=== PATIENT | male | born 1990 | race African-American/Black ===

== ENCOUNTER 2017-01-13 18:15 | Emergency (ER) | payer MEDICAID ==
--- NOTE | 2017-01-13 18:28 | CPEKG ---
Heart Rate: 91 RR Interval: 659 P-R Interval: 144 QRSD Interval: 78 QT Interval: 368 QTC Interval: 453 P Mason: 60 QRS Mason: 80 T Wave Mason: 46 EKG Severity - ABNORMAL ECG - EKG Impression: SINUS RHYTHM EKG Impression: PROBABLE LEFT VENTRICULAR HYPERTROPHY EKG Impression: ST ELEV, PROBABLE NORMAL EARLY REPOL PATTERN Electronically Signed By: Amauri Hoang 13-Jan-2017 23:26:51
--- NOTE | 2017-01-13 18:46 | EDPHY ---
H & P Time Seen by Provider: 01/13/17 18:16 HPI/ROS: Chief complaint. Near syncope HPI. 26-year-old male presents emergency department with feeling that he could pass out. He is here by EMS. He had dialysis this morning and then did need all day. He began to get sweaty and lightheaded. No chest discomfort or trouble breathing. He has had similar symptoms before. No problems heart or lungs. He does have hypertension and gets Friday dialysis. No fever. No unusual leg pain or swelling. His symptoms are better now. ROS Constitutional. no fever/chills, no weakness Eyes. no problems with vision ENT. no sore throat, no nasal drainage Cardiovascular. no chest pain Respiratory. no shortness of breath, no cough Abdominal. no abdominal pain, no nausea/vomiting, no diarrhea . no problems urinating MS. no calf pain/swelling, no neck/back pain, no joint pain Skin. Sweaty Lymph. no swollen glands Neuro. Near syncope Past Medical/Surgical History: Hypertension and renal failure Social History: Single, daily smoker, no alcohol Smoking Status: Light smoker Physical Exam: General Appearance: Alert well-developed male mild distress vital signs are stable Eyes: Pupils equal and round no pallor or injection. ENT, Mouth: Mucous membranes are moist. Respiratory: There are no retractions, lungs are clear to auscultation. Cardiovascular: Regular rate and rhythm. Gastrointestinal: Abdomen is soft and nontender, no masses, bowel sounds normal. Neurological: Awake and alert, sensory and motor exams grossly normal. Skin: Warm and dry, no rashes. Musculoskeletal: Neck is supple nontender. Extremities symmetrical, full range of motion. Psychiatric: Patient is oriented X 3, there is no agitation. Constitutional: Initial Vital Signs Temperature (C) 37.1 C 01/13/17 18:21 Heart Rate 90 01/13/17 18:21 Respiratory Rate 16 01/13/17 18:21 Blood Pressure 149/87 H 01/13/17 18:21 O2 Sat (%) 91 L 01/13/17 18:21 O2 Delivery Mode Room Air Allergies/Adverse Reactions: No Known Allergies Allergy (Unverified 01/13/17 18:20) Home Medications: Medication Instructions Recorded Olmesartan Medoxomil 01/13/17 Medical Decision Making - Diagnostics EKG Interpretation: EKG interpreted by me shows normal sinus rhythm normal interval and axis. QRS significant for LVH by voltage with early repolarization pattern. Otherwise no significant ST elevation or depression. No arrhythmia. The rate is 91 Procedures: IV, monitor ED Course/Re-evaluation: Patient is hungry. He is given juice and crackers re-evaluation at 7:30 p.m.. Patient is without symptoms. He is using virtual reality glasses in the bed and looking around. He is conversational. We do not have any other labs for comparison. He thinks his usual post dialysis creatinine is around 5 Re-evaluation 8:30 p.m.. Patient has no symptoms whatsoever. He feels well Differential Diagnosis: I considered electrolyte abnormalities including hyperkalemia. I considered hypoglycemia. I considered cardiac arrhythmia. - Data Points Laboratory Results: Laboratory Results 01/13/17 18:10 01/13/17 18:10 01/13/17 01/13/17 18:10 18:10 WBC 5.68 10^3/uL 10^3/uL (3.80-9.50) RBC 4.94 10^6/uL 10^6/uL (4.40-6.38) Hgb 13.8 g/dL g/dL (13.7-17.5) Hct 40.0 % % (40.0-51.0) MCV 81.0 fL L fL (81.5-99.8) MCH 27.9 pg pg (27.9-34.1) MCHC 34.5 g/dL g/dL (32.4-36.7) RDW 16.1 % H % (11.5-15.2) Plt Count 157 10^3/uL 10^3/uL (150-400) MPV 9.9 fL fL (8.7-11.7) Neut % (Auto) 75.2 % H % (39.3-74.2) Lymph % (Auto) 16.5 % % (15.0-45.0) [place] % (Auto) 6.3 % % (4.5-13.0) Eos % (Auto) 0.5 % L % (0.6-7.6) Baso % (Auto) 1.1 % % (0.3-1.7) Nucleat RBC Rel Count 0.0 % % (0.0-0.2) Absolute Neuts (auto) 4.27 10^3/uL 10^3/uL (1.70-6.50) Absolute Lymphs (auto) 0.94 10^3/uL L 10^3/uL (1.00-3.00) Absolute Monos (auto) 0.36 10^3/uL 10^3/uL (0.30-0.80) Absolute Eos (auto) 0.03 10^3/uL 10^3/uL (0.03-0.40) Absolute Basos (auto) 0.06 10^3/uL 10^3/uL (0.02-0.10) Absolute Nucleated RBC 0.00 10^3/uL 10^3/uL (0-0.01) Immature Gran % 0.4 % % (0.0-1.1) Immature Gran # 0.02 10^3/uL 10^3/uL (0.00-0.10) Sodium 138 mEq/L mEq/L (134-144) Potassium 4.9 mEq/L mEq/L (3.5-5.2) Chloride 103 mEq/L mEq/L (97-110) Carbon Dioxide 18 mEq/l L mEq/l (22-31) Anion Gap 17 mEq/L H mEq/L (8-16) BUN 27 mg/dL H mg/dL (7-23) Creatinine 5.2 mg/dL H mg/dL (0.7-1.3) Estimated GFR 14 Glucose 104 mg/dL H mg/dL (70-100) Calcium 8.1 mg/dL L mg/dL (8.5-10.4) Specimen Hemolysis 120 Departure - Departure Disposition: Home, Routine, Self-Care Clinical Impression: Near syncope Condition: Good Instructions: Near Syncope (ED) Additional Instructions: Regular eating and drinking. Return for worsening symptoms. Keep your next dialysis appointment on Friday. Referrals: Patient,NotPresent [Unknown] - As per Instructions Raul Noriega MD [Medical Doctor] - As per Instructions
[2017-01-13 19:12] LABS: % IMMATURE GRANULYOCYTES 0.4 % (0.0-1.1); ABSOLUTE IMMATURE GRANULOCYTES 0.02 10^3/uL (0.00-0.10); ADD DIFF? NO; ADD MORPH? NO; ADD SCAN? NO; ATYPICAL LYMPHOCYTE FLAG 10 (0-99); FRAGMENT RBC FLAG 20 (0-99); HEMOGLOBIN 13.8 g/dL (13.7-17.5); LEFT SHIFT FLG 0 (0-99); LIPEMIA HEMOLYSIS FLAG 90 (0-99); MEAN CELL HEMOGLOBIN 27.9 pg (27.9-34.1); MEAN CELL HEMOGLOBIN CONCENTR. 34.5 g/dL (32.4-36.7); MEAN PLATELET VOLUME 9.9 fL (8.7-11.7); PLATELET CLUMPS FLAG 0 (0-99); PLATELET COUNT 157 10^3/uL (150-400); RED BLOOD CELL COUNT 4.94 10^6/uL (4.40-6.38); RED CELL DISTRIBUTION WIDTH 16.1 % (11.5-15.2)
[2017-01-13 19:20] LABS: ANION GAP 17 mEq/L (8-16); CALCIUM 8.1 mg/dL (8.5-10.4); CARBON DIOXIDE 18 mEq/l (22-31); CHLORIDE 103 mEq/L (97-110); CREATININE 5.2 mg/dL (0.7-1.3); GLOMERULAR FILTRATION RATE 14; GLUCOSE 104 mg/dL (70-100); POTASSIUM 4.9 mEq/L (3.5-5.2); SODIUM 138 mEq/L (134-144); SPECIMEN HEMOLYSIS 120
[2017-01-13 20:08] VITALS: BP 163/93; PULSE 99; RESP 18; O2SAT 97
[2017-01-13 20:52] VITALS: TEMP 98.1
== END 2017-01-13 20:55 | disposition home or self-care (01) ==
DX: R55 Syncope and collapse (principal); I12.0 Hypertensive chronic kidney disease with stage 5 chronic kidney disease or end stage renal disease; N18.6 End stage renal disease; F17.200 Nicotine dependence, unspecified, uncomplicated; Z99.2 Dependence on renal dialysis

== ENCOUNTER 2017-01-28 11:05 | Observation (INO) | payer MEDICAID ==
[2017-01-28] MEDS ORDERED: BUPIVACAINE 0.25% 30 ML SDV ONE (15:50)
[2017-01-28] MEDS ORDERED: LIDOCAINE 1% 300 MG/30 ML SDV ONE (15:50)
[2017-01-28] MEDS ORDERED: PAPAVERINE HCL 60 MG/2 ML SDV ONE (15:51)
--- NOTE | 2017-01-30 12:23 | ASDISCHSUM ---
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
[2017-02-17] MEDS ORDERED: NS 1,000 ML IV ONE (14:11)
[2017-02-17] MEDS ORDERED: LIDOCAINE 1% 300 MG/30 ML SDV ONE (15:15)
[2017-02-17] MEDS ORDERED: BUPIVACAINE 0.25% 30 ML SDV ONE (15:15)
[2017-02-17] MEDS ORDERED: IOTHALAMATE MEG (CONRAY) 50 ML VIAL IV ONE (15:16)
[2017-02-17] MEDS ORDERED: PAPAVERINE HCL 60 MG/2 ML SDV ONE (15:16)
--- NOTE | 2017-02-17 15:46 | PDHPUP ---
History & Physical Update H&P update statement: This history and physical update is based on an assessment of the patient which was completed after admission or registration (within 24 hours), but prior to the surgery/procedure.
--- NOTE | 2017-02-17 15:46 | PDANEPAE ---
ANE History of Present Illness 26 year old male with recent development of ESRD (on dialysis via tunnelled catheter; last HD this a.m.) presents for creation of AV fistula. Patient also with HTN. ANE Past Medical History - Cardiovascular History Hx Hypertension: Yes Hx Arrhythmias: No Hx Chest Pain: No Hx Coronary Artery / Peripheral Vascular Disease: No Hx CHF / Valvular Disease: No Hx Palpitations: No - Pulmonary History Hx COPD: No Hx Asthma/Reactive Airway Disease: No Hx Recent Upper Respiratory Infection: No Hx Oxygen in Use at Home: No Hx Sleep Apnea: No - Neurologic History Hx Cerebrovascular Accident: No Hx Seizures: No Hx Dementia: No - Endocrine History Hx Diabetes: No Hypothyroid: No Hyperthyroid: No Obesity: no - Renal History Hx Renal Disorders: Yes Renal History Comment: ESRD on HD - Liver History Hx Hepatic Disorders: No - Neurological & Psychiatric Hx Hx Neurological and Psychiatric Disorders: No - GI History GERD: no Hx Gastrointestinal Disorders: No ANE Review of Systems Review of systems is: negative Review of Systems: - Exercise capacity Exercise capacity: >=4 METS ANE Patient History - Allergies Allergies/Adverse Reactions: No Known Allergies Allergy (Unverified 01/13/17 18:20) - Home Medications Home medications: home medication list seen and reviewed Home Medications: Olmesartan Medoxomil 01/13/17 [Last Taken Unknown] - NPO status NPO Status: no food or drink >8 hours NPO Since - Liquids (Date): 02/17/17 NPO Since - Liquids (Time): 02:00 NPO Since - Solids (Date): 02/16/17 NPO Since - Solids (Time): 23:00 - Anes Hx Anes Hx: no prior problems - Smoking Hx Smoking Status: Light smoker - Alcohol Use Alcohol Use: Sober - Family Anes Hx Family Anes Hx: neg - N/A ANE Labs/Vital Signs - Vital Signs Vital Signs: reviewed preoperatively; see RN documention for details Blood Pressure: 145/99 Heart Rate: 99 Respiratory Rate: 18 O2 Sat (%): 98 Height: 167.64 cm Weight: 61 kg ANE Physical Exam - Airway Neck exam: FROM Mallampati Score: Class 2 Mouth exam: normal dental/mouth exam - Pulmonary Pulmonary: no respiratory distress - Cardiovascular Cardiovascular: regular rate and rhythym - ASA Status ASA Status: IV ANE Anesthesia Plan Anesthesia Plan: general endotracheal anesthesia Total IV Anesthesia: No
[2017-02-17] MEDS ORDERED: MIDAZOLAM 2 MG/2 ML VIAL IVP ONE (15:47)
[2017-02-17] MEDS ORDERED: fentaNYL 100 MCG/2 ML INJ ONE ×3 (15:59→20:34)
[2017-02-17] MEDS ORDERED: PROPOFOL 200 MG/20 ML VIAL ONE (15:59)
[2017-02-17] MEDS ORDERED: PHENYLEPHRINE HCL 100 MCG/ML SYR ONE ×2 (16:48→16:54)
[2017-02-17] MEDS ORDERED: ONDANSETRON 4 MG/2 ML VIAL ONE (16:48)
[2017-02-17] MEDS ORDERED: DEXAMETHASONE 4 MG/ML VIAL ONE (16:48)
[2017-02-17] MEDS ORDERED: LABETALOL HCL 50 MG/10 ML SYR IVP PRN (17:09)
[2017-02-17] MEDS ORDERED: NALOXONE HCL 0.4 MG/ML INJ IVP PRN (17:09)
[2017-02-17] MEDS ORDERED: fentaNYL 100 MCG/2 ML INJ IVP PRN (17:09)
[2017-02-17] MEDS ORDERED: HYDROCODONE/APAP 5/325 TAB PO PRN ×2 (17:09→22:03)
[2017-02-17] MEDS ORDERED: LR 500 ML IV PRN (17:09)
[2017-02-17] MEDS ORDERED: ESMOLOL HCL 100 MG/10 ML VIAL IV ONE (20:43)
[2017-02-17] MEDS ORDERED: METOPROLOL TARTRATE 5 MG/5 ML INJ ONE (20:44)
--- NOTE | 2017-02-17 22:02 | POSTOPPROG ---
Post Op Note Date of Operation: 02/17/17 Surgeon: Asim Vo Rn Sane: Dr Ellen Ley Anesthesiologist: Mode Montes De Oca Anesthesia: LMA Pre-op Diagnosis: ESRD Post-op Diagnosis: same Procedure: R radio-cephalic fistula Findings: thrill Inf/Abcess present in the surg proc area at time of surgery?: No Depth: Deep Incisional (Fascial) EBL: 50-100
[2017-02-17] MEDS ORDERED: HYDROmorphONE/DILAUDID 1 MG/ML INJ IVP PRN (22:03)
[2017-02-17] MEDS ORDERED: ACETAMINOPHEN 325 MG TAB PO PRN (22:05)
--- NOTE | 2017-02-17 22:20 | POSTANESTH ---
Post Anesthetic Evaluation Cardiovascular Status: Normal, Stable, Similar to Pre-Op Cond Respiratory Status: Normal, Stable, Similar to Pre-op Cond. Level of Consciousness/Mental Status: Can Participate in Eval, Alert and Oriented Pain Control: Adequate, Prn Tx Ordered Nausea/Vomiting Control: Adequate, Prn Tx Ordered Complications Possibly Related to Anesthesia: None Noted
--- NOTE | 2017-02-17 23:26 | GOP ---
[f rep st] OPERATIVE REPORT DATE OF OPERATION: 02/17/17 SURGEON: Asim Vo MD CONSTRUCTION PRODUCER: Raul Ley MD PREOPERATIVE DIAGNOSIS: 26-year-old gentleman who presents with end-stage renal disease. POSTOPERATIVE DIAGNOSIS: 26-year-old gentleman who presents with end-stage renal disease. PROCEDURE PERFORMED: Primary radiocephalic fistula creation, left forearm. FINDINGS: Unable to use anatomic snuffbox artery; therefore, went to radial artery side-to-end anastomosis with the radial cephalic vein. DESCRIPTION OF PROCEDURE: Patient brought into the operating room. After induction of LMA in supine position, his arm was prepped with chlorhexidine and draped sterilely. Time-out procedure was performed according to institutional standards. Local anesthetic infused in skin and subcutaneous tissues of his forearm. An incision was made after mapping this area out with ultrasonography. The radiocephalic fistula was initially started from the anatomic snuff box, but the artery did not have enough force to keep the fistula open. The vein was clean and measured approximately 2 cm past the optimal site and an incision was made and widened with Bonner scissors and the vein was flushed. It had good flush and appeared to be widely patent. Anastomosis was then created in the anatomic snuffbox by getting proximal and distal control with Bulldogs and using 6-0 suture to create the anastomosis. Three separate anastomoses were done, but all failed to have any good outflow and therefore a radiocephalic fistula was decided upon by taking the radial artery and doing a side-to-end. A fluoroscopic evaluation of the vein was done prior to doing this anastomosis. Although there was a mild area of stricturing , a 3 mm coronary dilator was used to pass through the vessel without a problem. The anastomosis was created with 6-0 Prolene in a running fashion. The vessel had good signal and this went up the arm appropriately. The incision was then closed using 4-0 Monocryl. Dermabond was applied. The patient was awakened, LMA removed, taken to recovery room in stable condition. Needle, instrument, and sponge counts correct x2. /[id number]/MODL MTDD
[2017-02-18 02:01] VITALS: O2SAT 97
[2017-02-18 07:56] VITALS: BP 155/84; PULSE 107; RESP 14; TEMP 98.1
== END 2017-02-18 09:59 | disposition home or self-care (01) ==
LOC: F2W 16:45 → UNDOADMOB 16:45 → F2W 02-17 13:47 → F3E 02-17 16:00
PROVIDERS: ADMIT Surgery; ATTEND Surgery
PROC: 031C0ZF Bypass Left Radial Artery to Lower Arm Vein, Open Approach (ICD-10-PCS; principal; 2017-02-17 16:15)
DX: N18.6 End stage renal disease (principal); Z99.2 Dependence on renal dialysis; N04.1 Nephrotic syndrome with focal and segmental glomerular lesions; I15.1 Hypertension secondary to other renal disorders
CPT/HCPCS: 36821; G0378; J1100; J1170; J1644; J2250; J2370; J2405; J2440; J2704; J3010; Q9961

== ENCOUNTER 2017-02-26 14:48 | Inpatient (IN) | payer MEDICAID ==
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
[2017-02-26 15:33] LABS: % IMMATURE GRANULYOCYTES 0.2 % (0.0-1.1); ABSOLUTE IMMATURE GRANULOCYTES 0.01 10^3/uL (0.00-0.10); ADD DIFF? NO; ADD MORPH? NO; ADD SCAN? NO; ATYPICAL LYMPHOCYTE FLAG 20 (0-99); FRAGMENT RBC FLAG 20 (0-99); HEMATOCRIT 35.8 % (40.0-51.0); HEMOGLOBIN 13.1 g/dL (13.7-17.5); LEFT SHIFT FLG 0 (0-99); LIPEMIA HEMOLYSIS FLAG 90 (0-99); MEAN CELL HEMOGLOBIN 28.1 pg (27.9-34.1); MEAN CELL HEMOGLOBIN CONCENTR. 36.6 g/dL (32.4-36.7); MEAN CELL VOLUME 76.8 fL (81.5-99.8); PLATELET CLUMPS FLAG 10 (0-99); PLATELET COUNT 141 10^3/uL (150-400); RED BLOOD CELL COUNT 4.66 10^6/uL (4.40-6.38); RED CELL DISTRIBUTION WIDTH 14.3 % (11.5-15.2)
[2017-02-26 15:37] LABS: ANION GAP 21 mEq/L (8-16); CALCIUM 9.4 mg/dL (8.5-10.4); CARBON DIOXIDE 18 mEq/l (22-31); CHLORIDE 98 mEq/L (97-110); GLOMERULAR FILTRATION RATE 8; GLUCOSE 87 mg/dL (70-100); POTASSIUM 4.3 mEq/L (3.5-5.2); SODIUM 137 mEq/L (134-144)
[2017-02-26 15:44] LABS: CREATININE 8.4 mg/dL (0.7-1.3)
[2017-02-26] MEDS ORDERED: IOPAMIDOL (ISOVUE 370) 100 ML BTL IV ONE (18:10)
[2017-02-26] MEDS ORDERED: LABETALOL HCL 5 MG/ML 20 ML MDV ONE (19:53)
[2017-02-26] MEDS: LABETALOL HCL 5 MG/ML 20 ML MDV IVP ONE ×2 (19:56→20:20)
[2017-02-26] MEDS ORDERED: LABETALOL HCL 50 MG/10 ML SYR IVP ONE ×3 (20:18→20:59)
[2017-02-26] MEDS ORDERED: LABETALOL HCL 5 MG/ML 20 ML MDV IVP PRN (20:21)
[2017-02-26] MEDS ORDERED: hydrALAZINE 20 MG/ML VIAL IVP PRN (20:21)
[2017-02-26] MEDS ORDERED: LABETALOL HCL 5 MG/ML 20 ML MDV IVP ONE ×3 (20:30→21:15)
[2017-02-26] MEDS ORDERED: ACETAMINOPHEN 325 MG TAB PO PRN (21:48)
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
[2017-02-27] MEDS: LABETALOL HCL 200 MG TAB PO SCH ×3 (01:58→20:18)
[2017-02-27] MEDS: MINOXIDIL 2.5 MG TAB PO SCH ×3 (01:59→20:18)
[2017-02-27 06:28] LABS: % IMMATURE GRANULYOCYTES 0.1 % (0.0-1.1); ABSOLUTE IMMATURE GRANULOCYTES 0.01 10^3/uL (0.00-0.10); ADD DIFF? NO; ADD MORPH? NO; ADD SCAN? NO; ATYPICAL LYMPHOCYTE FLAG 20 (0-99); FRAGMENT RBC FLAG 20 (0-99); HEMATOCRIT 33.9 % (40.0-51.0); LEFT SHIFT FLG 0 (0-99); LIPEMIA HEMOLYSIS FLAG 90 (0-99); MEAN CELL HEMOGLOBIN 27.2 pg (27.9-34.1); MEAN CELL HEMOGLOBIN CONCENTR. 35.4 g/dL (32.4-36.7); MEAN CELL VOLUME 76.9 fL (81.5-99.8); MEAN PLATELET VOLUME 10.4 fL (8.7-11.7); PLATELET CLUMPS FLAG 10 (0-99); PLATELET COUNT 130 10^3/uL (150-400); RED BLOOD CELL COUNT 4.41 10^6/uL (4.40-6.38); RED CELL DISTRIBUTION WIDTH 14.3 % (11.5-15.2)
[2017-02-27 06:45] LABS: ANION GAP 16 mEq/L (8-16); CALCIUM 8.9 mg/dL (8.5-10.4); CARBON DIOXIDE 22 mEq/l (22-31); CHLORIDE 100 mEq/L (97-110); GLOMERULAR FILTRATION RATE 8; GLUCOSE 80 mg/dL (70-100); POTASSIUM 4.4 mEq/L (3.5-5.2); SODIUM 138 mEq/L (134-144)
[2017-02-27 06:54] LABS: CREATININE 8.5 mg/dL (0.7-1.3)
--- NOTE | 2017-02-27 08:18 | CPEKG ---
Heart Rate: 92 RR Interval: 652 P-R Interval: 164 QRSD Interval: 82 QT Interval: 380 QTC Interval: 471 P [place]: 44 QRS [place]: 65 T Wave [place]: 49 EKG Severity - ABNORMAL ECG - EKG Impression: SINUS RHYTHM EKG Impression: ST ELEVATION (Less prominent compared to January 13, 2017) SUGGESTS EKG Impression: PERICARDITIS OR EARLY REPOLARIZATION EKG Impression: BORDERLINE PROLONGED QT INTERVAL Electronically Signed By: Amauri Branch 27-Feb-2017 09:40:13
[2017-02-27] MEDS: ONDANSETRON 4 MG/2 ML VIAL IVP PRN ×2 (08:59→20:28)
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
--- NOTE | 2017-02-27 14:11 | PDMN ---
Medical Necessity Medical necessity: Change to IP, [facility] IP only procedure (dialysis)
--- NOTE | 2017-02-27 14:43 | HOSPPROG ---
Hospitalist Progress Note Assessment/Plan: DIAGNOSES: -ACUTE INJURY TO NEW DIALYSIS AV FISTULA LEFT ARM WITH BLEEDING, BLEEDING RESOLVED -this is a minor injury was seen by Dr. Dan in the emergency room, not felt to need any intervention other than dressing -Dr. 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: Sinus rhythm EXAM: Seen on dialysis today No issues with pressure sore flows on dialysis machine Alert, oriented, relaxed Skin warm dry good color Respirations easy lungs clear Heart regular Abdomen soft nondistended nontender Some edema but mild His at fistula on left wrist has a bandage with a small amount of dried blood but otherwise looks good with barely palpable thrill 1 week out from surgery which seems appropriate Objective: Vital Signs Temp Pulse Resp BP Pulse Ox 36.8 C 94 16 178/115 H 99 02/27/17 08:00 02/27/17 08:00 02/27/17 08:00 02/27/17 08:00 02/27/17 08:00 ICD10 Worksheet Patient Problems: Problems Problem Status Onset ESRD needing dialysis Acute Hypertension Acute Renal failure Acute
--- NOTE | 2017-02-28 08:42 | SOAPPROG ---
FLOYD Progress Note Assessment/Plan: Assessment: The patient is a 26 y/o M with FSGS now ESRD on HD MWF with recent AVF placement with traumatic fall and pseudoaneurysm of fistula, healing. Seen on HD today, and may be discharged from a renal standpoint with surgical follow-up. ESRD -HD today, UF 3kg -return to [facility] MWF 3rd shift HTN/vol -continue to challenge dry weight -BP still elevated on hydralazine, minoxidil, and labetalol -consider scheduling hydralazine, increasing labetalol to 800mg BID, or starting losartan L liu AVF with traumatic injury -bandaged, pain control -pseudoaneurysm, wont be able to use for 6 weeks -follow-up per surgery -R TDC in place BMD -phos not checked -reviewed foods that should be monitored -labs as outpatient AGMA -improved with HD 02/28/17 08:39 02/28/17 08:44 Subjective: Patient seen on dialysis. Feeling ok and arm pain minimal. Asking about dietary restrictions. Objective: Vital Signs Temp Pulse Resp BP Pulse Ox 37.0 C 98 16 144/87 H 95 02/28/17 04:00 02/28/17 04:00 02/28/17 04:00 02/28/17 04:00 02/28/17 04:00 02/27/17 02/28/17 03/01/17 05:59 05:59 05:59 Intake Total 660 Balance 660 Physical Exam - Physical Exam General Appearance: WD/WN, alert, no apparent distress EENT: PERRL/EOMI, pharynx normal Neck: non-tender, full range of motion, supple Respiratory: chest non-tender, lungs clear Cardiac/Chest: normal peripheral pulses, regular rate, rhythm Abdomen: normal bowel sounds, non-tender, soft Skin: normal color, warm/dry Extremities: normal range of motion, non-tender, other (R TDC in place, L liu bandaged, +thrill) ICD10 Worksheet Patient Problems: Problems Problem Status Onset ESRD needing dialysis Acute Hypertension Acute Renal failure Acute
[2017-02-28] MEDS: LABETALOL HCL 200 MG TAB PO SCH ×2 (10:29→11:40)
[2017-02-28] MEDS: MINOXIDIL 2.5 MG TAB PO SCH ×2 (10:30→11:42)
[2017-02-28 11:32] VITALS: BP 152/93; RESP 15; TEMP 97.9; O2SAT 97
[2017-02-28 11:42] VITALS: PULSE 87
[2017-02-28] MEDS: ONDANSETRON 4 MG/2 ML VIAL IVP PRN (11:46)
[2017-02-28] MEDS ORDERED: HEPARIN 50,000 UNIT/10 ML VIAL ONE (13:14)
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
--- NOTE | 2017-02-28 15:06 | ASMTCMCOM ---
CM Note CM Note Notes: Pt to DC today. reserved correction bed for pt and also gave pt bus pass to get to the correction. Date Signed: 02/28/2017 03:05 PM Electronically Signed By:Gaby Hart LCSW
--- NOTE | 2017-02-28 17:18 | GDS ---
[f rep st] DISCHARGE SUMMARY DISCHARGE DIAGNOSES: 1. End-stage renal disease due to focal segmental glomerular sclerosis. 2. Acute injury to his new left dialysis fistula. HOSPITAL COURSE: A 26-year-old man with end-stage renal disease due to FSGS, presents with an injury to his left AV fistula. This had been placed by Dr. Vo recently. It was bleeding and pulsatil e blood. It was bandaged and appears okay. CT scan did show a small pseudoaneurysm. He underwent 2 rounds of dialysis. His course has been complicated by very [id number] hypertension, thou gh his blood pressure when I am seeing him on discharge is 154/92. Dr. Vo will see him prior to discharge. He will set up an appointment for the patient to follow up in his office next week. He will also assess the fistula. I have made no changes to his medications. He follows up at [facility] for dialysis. He will need to ge t back on his Friday, Friday, Friday schedule. BILLING: I spent more than 30 minutes on the day of discharge, coordinating care. /[id number]/MODL
== END 2017-02-28 15:00 | disposition home or self-care (01) | DRG 314 ==
LOC: EDUNIT# → F2N 02-27 00:18 → F1N 02-27 11:01 → OBSVTOIN 02-27 13:34
PROVIDERS: ADMIT Internal Medicine; ATTEND Student in an Organized Health Care Education/Training Program
PROC: 5A1D70Z Performance of Urinary Filtration, Intermittent, Less than 6 Hours Per Day (ICD-10-PCS; principal; 2017-02-27)
DX: T82.838A Hemorrhage due to vascular prosthetic devices, implants and grafts, initial encounter (principal); T82.898A Other specified complication of vascular prosthetic devices, implants and grafts, initial encounter; I72.1 Aneurysm of artery of upper extremity; N18.6 End stage renal disease; E87.2 Acidosis; Z99.2 Dependence on renal dialysis; N04.1 Nephrotic syndrome with focal and segmental glomerular lesions; I15.1 Hypertension secondary to other renal disorders; Z59.0 Homelessness
CPT/HCPCS: 96365; J0360; J0690; J1644; J2405; J3490; Q9967

== ENCOUNTER 2017-03-06 04:38 | Observation (INO) | payer MEDICAID ==
--- NOTE | 2017-03-06 04:44 | EDPHY ---
H & P HPI/ROS: HPI CHIEF COMPLAINT: I need dialysis, hypertension HISTORY OF PRESENT ILLNESS: This patient 26-year-old male significant past medical history for end-stage renal disease. On hemodialysis Friday. He last received dialysis on Friday. He has not taken his blood pressure medication in 3-4 days. He tells me takes minoxidil as well as labetalol. Unsure of the doses. He [facility] as he is [facility]. States that he noticed his blood pressure is high. No chest pain no shortness of breath. Completed 4 hours of dialysis on Friday. Denies fever. Right chest dialysis access. Patient does make urine. Past Medical History: End-stage renal disease, hypertension, FSGS. Followed at [facility]. 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 Past Surgical History: Left arm AV fistula that is new. Social History: Denies daily use of drugs. Does smoke tobacco. Denies alcohol. Family History: Noncontributory ROS REVIEW OF SYSTEMS: A comprehensive 10 point review of systems is otherwise negative aside from elements mentioned in the history of present illness. Exam Constitutional appears well nontoxic triage nursing summary reviewed, vital signs reviewed, awake/alert. Vital signs noted to be overtly hypertensive tachycardic. Eyes normal conjunctivae and sclera, EOMI, PERRLA. HENT normal inspection, atraumatic, moist mucus membranes, no epistaxis, neck supple/ no meningismus, no raccoon eyes. Respiratory clear to auscultation bilaterally, normal breath sounds, no respiratory distress, no wheezing. Cardiovascular right chest shows dialysis access. Catheter. Clean. rate normal, regular rhythm, no murmur, no edema, distal pulses normal. Gastrointestinal soft, non-tender, no rebound, no guarding, normal bowel sounds, no distension, no pulsatile mass. Genitourinary no CVA tenderness. Musculoskeletal no midline vertebral tenderness, full range of motion, no calf swelling, no tenderness of extremities, no meningismus, good pulses, neurovascularly intact. Skin pink, warm, & dry, no rash, skin atraumatic. Neurologic awake, alert and oriented x 3, AAOx3, moves all 4 extremities equally, motor intact, sensory intact, CN II-XII intact, normal cerebellar, normal vision, normal speech. Psychiatric normal mood/affect. Heme/Lymph/Immune no lymphadenopathy. Differential Diagnosis: Includes but is not limited to in a particular order volume overload, acute need for dialysis, electrolyte disturbance, hyperkalemia , hypertensive urgency, hypertensive emergency Medical Decision Making: Plan for this patient EKG to rule out peaked T-waves, basic blood work. And patient will need to be set up for dialysis. Re-evaluation: EKG interpretation by me on record in [employer] system. Impression and time of EKG 4:49 a.m., sinus rhythm rate of 103. No PE T-wave abnormality. LVH present. Early [place] pulp pattern. Otherwise unremarkable EKG. 0526AM: Spoke with Dr. Noriega with Nephrology. Will plan on dialysis this morning add on case. He has no further recommendations at this time. Patient's chemistry reviewed potassium is normal. No peaked T-waves on his EKG. Patient will need urgent dialysis due to hypertension. I have ordered him 20 mg IV labetalol and minoxidil. He is hemodynamically stable is blood pressure slightly improved but still high. He denies any chest pain or shortness of breath. Denies significant headache. Denies focal weakness numbness or tingling. Plan for admission the hospitalist service. Blood pressure improved to 198 systolic. After 20 mg IV labetalol. Additionally I have ordered him another dose of labetalol. Plan for dialysis. Spoke with the hospitalist service. Admission the hospital service Dr. Burgos Source: Patient, EMS - Medical/Surgical History Hx Asthma: No Hx Chronic Respiratory Disease: No Hx Diabetes: No Hx Cardiac Disease: No Hx Renal Disease: Yes Hx Cirrhosis: No Hx Alcoholism: No Hx HIV/AIDS: No Hx Splenectomy or Spleen Trauma: No Other PMH: HTN, ESRD, eye surgery, dialysis - Social History Smoking Status: Light smoker Constitutional: Initial Vital Signs Temperature (C) 36.9 C 03/06/17 04:48 Heart Rate 105 H 03/06/17 04:48 Respiratory Rate 16 03/06/17 04:48 Blood Pressure 228/168 H 03/06/17 04:48 O2 Sat (%) 96 03/06/17 04:48 O2 Delivery Mode Room Air Allergies/Adverse Reactions: No Known Allergies Allergy (Unverified 03/06/17 04:48) Home Medications: Medication Instructions Recorded Herbals/Supplements -Info Only 1 ea PO DAILY 02/18/17 Labetalol HCl [Trandate 200 mg (*)] 600 mg PO BID 02/18/17 Minoxidil [Minoxidil 2.5 mg (*)] 5 mg PO BID 02/18/17 Medical Decision Making - Data Points Laboratory Results: Laboratory Results 03/06/17 05:00 03/06/17 05:00 03/06/17 03/06/17 05:00 05:00 WBC 6.62 10^3/uL 10^3/uL (3.80-9.50) RBC 4.02 10^6/uL L 10^6/uL (4.40-6.38) Hgb 11.3 g/dL L g/dL (13.7-17.5) Hct 30.9 % L % (40.0-51.0) MCV 76.9 fL L fL (81.5-99.8) MCH 28.1 pg pg (27.9-34.1) MCHC 36.6 g/dL g/dL (32.4-36.7) RDW 14.5 % % (11.5-15.2) Plt Count 135 10^3/uL L 10^3/uL (150-400) MPV 10.6 fL fL (8.7-11.7) Neut % (Auto) 64.2 % % (39.3-74.2) Lymph % (Auto) 25.5 % % (15.0-45.0) [place] % (Auto) 7.3 % % (4.5-13.0) Eos % (Auto) 1.8 % % (0.6-7.6) Baso % (Auto) 0.9 % % (0.3-1.7) Nucleat RBC Rel Count 0.0 % % (0.0-0.2) Absolute Neuts (auto) 4.25 10^3/uL 10^3/uL (1.70-6.50) Absolute Lymphs (auto) 1.69 10^3/uL 10^3/uL (1.00-3.00) Absolute Monos (auto) 0.48 10^3/uL 10^3/uL (0.30-0.80) Absolute Eos (auto) 0.12 10^3/uL 10^3/uL (0.03-0.40) Absolute Basos (auto) 0.06 10^3/uL 10^3/uL (0.02-0.10) Absolute Nucleated RBC 0.00 10^3/uL 10^3/uL (0-0.01) Immature Gran % 0.3 % % (0.0-1.1) Immature Gran # 0.02 10^3/uL 10^3/uL (0.00-0.10) Sodium 139 mEq/L mEq/L (134-144) Potassium 3.9 mEq/L mEq/L (3.5-5.2) Chloride 101 mEq/L mEq/L (97-110) Carbon Dioxide 21 mEq/l L mEq/l (22-31) Anion Gap 17 mEq/L H mEq/L (8-16) BUN 57 mg/dL H mg/dL (7-23) Creatinine 7.8 mg/dL H* mg/dL (0.7-1.3) Estimated GFR 9 Glucose 74 mg/dL mg/dL (70-100) Calcium 8.9 mg/dL mg/dL (8.5-10.4) Medications Given: Discontinued Medications Labetalol HCl (Trandate Injection) 20 mg IVP EDNOW ONE Stop: 03/06/17 04:47 Last Admin: 03/06/17 05:05 Dose: 20 mg Minoxidil (Minoxidil) 2.5 mg PO EDNOW ONE Stop: 03/06/17 05:13 Last Admin: 03/06/17 05:25 Dose: 2.5 mg Departure - Departure Disposition: [facility] Acute Clinical Impression: ESRD needing dialysis Hypertension Qualifiers: Hypertension type: essential hypertension Qualified Code(s): I10 - Essential ( primary) hypertension Condition: Good Referrals: NONE *PRIMARY CARE P,. [Primary Care Provider] - As per Instructions
[2017-03-06] MEDS ORDERED: LABETALOL HCL 5 MG/ML 20 ML MDV IVP ONE (04:46)
[2017-03-06 05:11] LABS: PLATELET COUNT 135 10^3/uL (150-400)
[2017-03-06] MEDS ORDERED: MINOXIDIL 2.5 MG TAB PO ONE (05:12)
[2017-03-06] MEDS ORDERED: LABETALOL HCL 50 MG/10 ML SYR IVP ONE (05:29)
[2017-03-06] MEDS ORDERED: LORazepam 0.5 MG TAB PO PRN (06:03)
[2017-03-06] MEDS ORDERED: ACETAMINOPHEN 325 MG TAB PO PRN (06:03)
[2017-03-06] MEDS ORDERED: HYDROmorphONE/DILAUDID 1 MG/ML INJ IVP PRN (06:03)
[2017-03-06] MEDS ORDERED: ONDANSETRON 4 MG/2 ML VIAL IVP PRN (06:03)
[2017-03-06] MEDS ORDERED: LABETALOL HCL 50 MG/10 ML SYR IVP PRN (06:05)
--- NOTE | 2017-03-06 06:16 | CPEKG ---
Heart Rate: 103 RR Interval: 583 P-R Interval: 176 QRSD Interval: 86 QT Interval: 348 QTC Interval: 456 P [place]: 46 QRS [place]: 52 T Wave [place]: 44 EKG Severity - OTHERWISE NORMAL ECG - EKG Impression: SINUS TACHYCARDIA EKG Impression: ST ELEV, PROBABLE NORMAL EARLY REPOL PATTERN Electronically Signed By: Salvador Perez 06-Mar-2017 06:35:17
--- NOTE | 2017-03-06 06:16 | CPEKG ---
Heart Rate: 103 RR Interval: 583 P-R Interval: 176 QRSD Interval: 86 QT Interval: 348 QTC Interval: 456 P [place]: 46 QRS [place]: 52 T Wave [place]: 44 EKG Severity - OTHERWISE NORMAL ECG - EKG Impression: SINUS TACHYCARDIA EKG Impression: ST ELEV, PROBABLE NORMAL EARLY REPOL PATTERN Electronically Signed By: Salvador Perez 06-Mar-2017 06:35:17
--- NOTE | 2017-03-06 07:23 | PDGENHP ---
History and Physical - Chief Complaint high blood pressure, headache - History of Present Illness Source - patient provides history and keeps eyes closed during interview. requires prompting to participate in interview. Case discussed with ED provider and EMR reviewed. 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 Patient normally on MWF HD scheduled but reports he missed his Friday dialysis appointment. Patient with history of missing appointments intermittently as well as noncompliance with his antihypertensive medications which he also has not recently taken. Patient reports he developed Headache without changes in vision. no chest pain/palpitations or shortness of breath. Patient denies any LE edema. no fevers/chills/cough and was otherwise feeling well until evening prior to arrival except for headache. History Information - Allergies/Home Medication List Allergies/Adverse Reactions: No Known Allergies Allergy (Unverified 03/06/17 04:48) Home Medications: Herbals/Supplements -Info Only 1 ea PO DAILY 02/18/17 [Last Taken Unknown] Labetalol HCl [Trandate 200 mg (*)] 600 mg PO BID 02/18/17 [Last Taken 02/25/17 21:00] Minoxidil [Minoxidil 2.5 mg (*)] 5 mg PO BID 02/18/17 [Last Taken 02/25/17 21:00 ] I have personally reviewed and updated: family history, medical history, social history, surgical history - Past Medical History Additional medical history: FSGS. ESRD on HD MWF. benign essential HTN - Surgical History Additional surgical history: left arm AVF. - Family History Positive for: hypertension. Negative for: diabetes type II - Social History Smoking Status: Light smoker Tobacco Use: Cigarettes Alcohol Use: None Drug Use: Marijuana Review of Systems Review of Systems: ROS: 10pt was reviewed & negative except for what was stated in HPI & below Constitutional: Reports: no symptoms. Denies: fever, recent illness, weakness EENMT: Reports: no symptoms. Denies: blurred vision, nose congestion, sore throat Cardiac: Denies: no symptoms, chest pain, edema, lightheadedness, palpitations Respiratory: Denies: cough, shortness of breath Gastrointestinal: Denies: vomitting, nausea Genitourinary: Denies: dysuria, hematuria Muscolosketal: Denies: joint pain, muscle pain Skin: Reports: no symptoms Neurological: Reports: headache. Denies: numbness, tingling Physical Exam Physical Exam: Selected Entries 03/06/17 04:48 Heart Rate 105 H Respiratory 16 Rate O2 Sat (%) 96 Temperature (C) 36.9 C Blood Pressure 228/168 H Mean Arterial 188 H Pressure (MAP) O2 Delivery Room Air Mode Temperature Oral Source Temp Pulse Resp BP Pulse Ox 36.2 C 102 H 14 181/119 H 95 03/06/17 07:14 03/06/17 07:14 03/06/17 07:14 03/06/17 07:14 03/06/17 07:14 Constitutional: no apparent distress, not in pain, No uncomfortable Eyes: PERRL, EOMI, scleral injection, No icteric sclera Ears, Nose, Mouth, Throat: moist mucous membranes Cardiovascular: regular rate and rhythym, no murmur, rub, or gallop, tachycardia , No irregularly irregular, No edema Respiratory: no respiratory distress, no rales or rhonchi, clear to auscultation Gastrointestinal: normoactive bowel sounds, soft, non-tender abdomen, no palpable masses Genitourinary: no bladder fullness, No andres in urethra Skin: warm, normal color, No rash Musculoskeletal: full muscle strength, no muscle tenderness, No generalized weakness Neurologic: AAOx3, other (grossly nonfocal. moves all extremities while laying in bed. ), No weakness Psychiatric: not anxious, flat affect, No anxious, No depressed, No poor insight , No poor judgement, No poor memory Lab Data & Imaging Review 03/06/17 05:00 03/06/17 05:00 WBC 6.62 10^3/uL (3.80-9.50) 03/06/17 05:00 RBC 4.02 10^6/uL (4.40-6.38) L 03/06/17 05:00 Hgb 11.3 g/dL (13.7-17.5) L 03/06/17 05:00 Hct 30.9 % (40.0-51.0) L 03/06/17 05:00 MCV 76.9 fL (81.5-99.8) L 03/06/17 05:00 MCH 28.1 pg (27.9-34.1) 03/06/17 05:00 MCHC 36.6 g/dL (32.4-36.7) 03/06/17 05:00 RDW 14.5 % (11.5-15.2) 03/06/17 05:00 Plt Count 135 10^3/uL (150-400) L 03/06/17 05:00 MPV 10.6 fL (8.7-11.7) 03/06/17 05:00 Neut % (Auto) 64.2 % (39.3-74.2) 03/06/17 05:00 Lymph % (Auto) 25.5 % (15.0-45.0) 03/06/17 05:00 Henderson % (Auto) 7.3 % (4.5-13.0) 03/06/17 05:00 Eos % (Auto) 1.8 % (0.6-7.6) 03/06/17 05:00 Baso % (Auto) 0.9 % (0.3-1.7) 03/06/17 05:00 Nucleat RBC Rel Count 0.0 % (0.0-0.2) 03/06/17 05:00 Absolute Neuts (auto) 4.25 10^3/uL (1.70-6.50) 03/06/17 05:00 Absolute Lymphs (auto) 1.69 10^3/uL (1.00-3.00) 03/06/17 05:00 Absolute Monos (auto) 0.48 10^3/uL (0.30-0.80) 03/06/17 05:00 Absolute Eos (auto) 0.12 10^3/uL (0.03-0.40) 03/06/17 05:00 Absolute Basos (auto) 0.06 10^3/uL (0.02-0.10) 03/06/17 05:00 Absolute Nucleated RBC 0.00 10^3/uL (0-0.01) 03/06/17 05:00 Immature Gran % 0.3 % (0.0-1.1) 03/06/17 05:00 Immature Gran # 0.02 10^3/uL (0.00-0.10) 03/06/17 05:00 Sodium 139 mEq/L (134-144) 03/06/17 05:00 Potassium 3.9 mEq/L (3.5-5.2) 03/06/17 05:00 Chloride 101 mEq/L (97-110) 03/06/17 05:00 Carbon Dioxide 21 mEq/l (22-31) L 03/06/17 05:00 Anion Gap 17 mEq/L (8-16) H 03/06/17 05:00 BUN 57 mg/dL (7-23) H 03/06/17 05:00 Creatinine 7.8 mg/dL (0.7-1.3) H* 03/06/17 05:00 Estimated GFR 9 03/06/17 05:00 Glucose 74 mg/dL (70-100) 03/06/17 05:00 Calcium 8.9 mg/dL (8.5-10.4) 03/06/17 05:00 Visualized and Interpreted EKG results: Yes EKG Interpretation: Positive for: LVH EKG additional interpertation: NSR 100s with LVH and repol changes. Assessment & Plan Assessment: 26 yo M presents with Headache and HTN: #ESRD needing dialysis (Acute) #accelerated Hypertension (Acute) - Patient initial BP in ED was 249/179. will plan to decreased by 25% for first several hours at this time. s/p labetalol and minoxidil in ED. labetalol available prn. patient also concerned regarding drop in BP and development of lightheadedness. #Headache - resolved with improved BPs. #FSGS - HD as above. #anemia - likely chronic disease. no evidence of active bleeding. continue to monitor. #thrombocytopenia - mildly decreased. etiology unclear. holding anticoagulation. #LVH - related to poorly controlled BPs. plan as above. FEN - saline lock. electrolytes acceptable at this time. renal diet ordered. PPX - SCds. holding anticoagulation before HD COR - FULL. Dispo - admit to observation on PCU for close BP monitoring.
[2017-03-06] MEDS ORDERED: LABETALOL HCL 5 MG/ML 20 ML MDV IVP PRN (08:30)
[2017-03-06] MEDS ORDERED: MINOXIDIL 2.5 MG TAB PO SCH (09:00)
[2017-03-06 09:10] LABS: HEPATITIS B SURFACE ANTIGEN NEGATIVE (NEGATIVE)
[2017-03-06 09:28] LABS: HEPATITIS B CORE AB TOTAL NEGATIVE (NEGATIVE)
--- NOTE | 2017-03-06 09:42 | SOAPPROG ---
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 under the care of Dr. Robles Will follow while inpatient 03/06/17 09:39 Objective: Vital Signs Temp Pulse Resp BP Pulse Ox 36.2 C 102 H 14 181/119 H 95 03/06/17 07:14 03/06/17 07:14 03/06/17 07:14 03/06/17 07:14 03/06/17 07:14 03/05/17 03/06/17 03/07/17 05:59 05:59 05:59 Output Total 200 Balance -200 ICD10 Worksheet Patient Problems: Problems Problem Status Onset ESRD needing dialysis Acute Hypertension Acute Renal failure Acute
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
--- NOTE | 2017-03-06 11:25 | SOAPPROG ---
SOAP Progress Note Assessment/Plan: Assessment:Plan: ESRD Stable on Hd Tolerating current UF Plan for dialysis tomorrow to keep on regular schedule AVF examined Good bruit Small area of dehiscence of distal wound that is clean This should be left to heal by secondary intention He is homeless [facility] is not a reliable housing solution, as it is first- come, first-served. He would not meet criteria for [employer] or [employer] from what I know of those services. I am not sure of what other resources are available in [place], [facility]. I have had some success with people that need help through the [facility] in [place] [phone] I gave him the number Discussed with Dr. Wilson 03/06/17 11:26 Objective: Vital Signs Temp Pulse Resp BP Pulse Ox 36.2 C 102 H 14 181/119 H 95 03/06/17 07:14 03/06/17 07:14 03/06/17 07:14 03/06/17 07:14 03/06/17 07:14 03/05/17 03/06/17 03/07/17 05:59 05:59 05:59 Output Total 200 Balance -200 ICD10 Worksheet Patient Problems: Problems Problem Status Onset ESRD needing dialysis Acute Hypertension Acute Renal failure Acute
--- NOTE | 2017-03-06 11:25 | SOAPPROG ---
SOAP Progress Note Assessment/Plan: Assessment:Plan: ESRD Stable on Hd Tolerating current UF Plan for dialysis tomorrow to keep on regular schedule AVF examined Good bruit Small area of dehiscence of distal wound that is clean This should be left to heal by secondary intention He is homeless [facility] is not a reliable housing solution, as it is first- come, first-served. He would not meet criteria for [employer] or [employer] from what I know of those services. I am not sure of what other resources are available in [place], [facility]. I have had some success with people that need help through the [facility] in [place] [phone] I gave him the number Discussed with Dr. Wilson 03/06/17 11:26 Objective: Vital Signs Temp Pulse Resp BP Pulse Ox 36.2 C 102 H 14 181/119 H 95 03/06/17 07:14 03/06/17 07:14 03/06/17 07:14 03/06/17 07:14 03/06/17 07:14 03/05/17 03/06/17 03/07/17 05:59 05:59 05:59 Output Total 200 Balance -200 ICD10 Worksheet Patient Problems: Problems Problem Status Onset ESRD needing dialysis Acute Hypertension Acute Renal failure Acute
--- NOTE | 2017-03-06 11:25 | SOAPPROG ---
SOAP Progress Note Assessment/Plan: Assessment:Plan: ESRD Stable on Hd Tolerating current UF Plan for dialysis tomorrow to keep on regular schedule AVF examined Good bruit Small area of dehiscence of distal wound that is clean This should be left to heal by secondary intention He is homeless [facility] is not a reliable housing solution, as it is first- come, first-served. He would not meet criteria for [employer] or [employer] [employer] from what I know of those services. I am not sure of what other resources are available in [place], [facility]. I have had some success with people that need help through the [facility] in [place] [phone] I gave him the number Discussed with Dr. Wilson 03/06/17 11:26 Objective: Vital Signs Temp Pulse Resp BP Pulse Ox 36.2 C 102 H 14 181/119 H 95 03/06/17 07:14 03/06/17 07:14 03/06/17 07:14 03/06/17 07:14 03/06/17 07:14 03/05/17 03/06/17 03/07/17 05:59 05:59 05:59 Output Total 200 Balance -200 ICD10 Worksheet Patient Problems: Problems Problem Status Onset ESRD needing dialysis Acute Hypertension Acute Renal failure Acute
--- NOTE | 2017-03-06 11:49 | HOSPPROG ---
Hospitalist Progress Note Assessment/Plan: #. ESRD/HD - ESRD secondary to FSGS. Plan for HD tomorrow. #. Accelerated HTN - resume home labetalolol and minoxidil. #. BYNUM - PRN treatment. Consider CT head if worsening. #. Anemia - secondary to chronic disease. With low MCV, will check iron studies. #. Thrombocytopenia - Mild, uncertain etiology. Follow for now. #. Bowel/Bladder - Bowel regimen if constipation develops. #. DVT Prophylaxis - low risk as ambulatory. #. Dispo - will need to work with social work to see if we can assist with placement as he is homeless which complicates the regularity of HD. Subjective: No acute events overnight. Objective: Vital Signs Temp Pulse Resp BP Pulse Ox 36.2 C 102 H 14 181/119 H 95 03/06/17 07:14 03/06/17 07:14 03/06/17 07:14 03/06/17 07:14 03/06/17 07:14 03/05/17 03/06/17 03/07/17 05:59 05:59 05:59 Output Total 200 Balance -200 - Physical Exam Constitutional: no apparent distress, appears nourished, not in pain Cardiovascular: regular rate and rhythym, no murmur, rub, or gallop Respiratory: no respiratory distress, no rales or rhonchi, clear to auscultation Gastrointestinal: normoactive bowel sounds, soft, non-tender abdomen, no palpable masses Neurologic: AAOx3 Psychiatric: interacting appropriately ICD10 Worksheet Patient Problems: Problems Problem Status Onset ESRD needing dialysis Acute Hypertension Acute Renal failure Acute
[2017-03-06] MEDS: MINOXIDIL 2.5 MG TAB PO SCH ×2 (13:45→21:24)
[2017-03-06] MEDS: LABETALOL HCL 200 MG TAB PO SCH ×2 (13:48→21:25)
--- NOTE | 2017-03-06 17:14 | ASMTCMCOM ---
CM Note CM Note Notes: 03/06/2017 Case Management Note Met w/pt to discuss dialysis plan. Pt recieves dialysis through [facility] in [place], reports missing appointment earlier this week. Discussed using [place] transport to appointments. Pt is to call and arrange apple picking supervisor location for [place] transport while at [facility] each week. [facility] is closed today. Case Management to call tomorrow and confirm dialysis plan. Pt reports starting SSDI application, but is unsure of status. Pt moved to [place] from [facility] for a summer job, reports plans to "go somewhere warm" for the winter months. Case Management d/c poc: to alf resuming dialysis at [facility] on [place] when medically stable. Case management to follow. Date Signed: 03/06/2017 05:13 PM Electronically Signed By:Marzena Do RN
--- NOTE | 2017-03-06 17:14 | ASMTCMCOM ---
CM Note CM Note Notes: 03/06/2017 Case Management Note Met w/pt to discuss dialysis plan. [facility] [place], reports missing appointment earlier this week. Discussed using [facility] [place] transport to appointments. Pt is to call and arrange rock picker location for [place] transport while at [facility] each week. [facility] is closed today. Case Management to call tomorrow and confirm dialysis plan. Pt reports starting SSDI application, but is unsure of status. Pt moved to [place] from [facility] for a summer job, reports plans to "go somewhere warm" for the winter months. Case Management d/c poc: to halfway resuming dialysis at [facility] [place] when medically stable. Case management to follow. Date Signed: 03/06/2017 05:13 PM Electronically Signed By:Marzena Do RN
--- NOTE | 2017-03-06 17:14 | ASMTCMCOM ---
CM Note CM Note Notes: 03/06/2017 Case Management Note Met w/pt to discuss dialysis plan. Pt rec[facility] dialysis through [facility] in [place], reports missing appointment earlier this week. Discussed using [place] transport to appointments. Pt is to call and arrange clam picker location for [place] transport while at [facility] each week. [facility] is closed today. Case Management to call tomorrow and confirm dialysis plan. Pt reports starting SSDI application, but is unsure of status. Pt moved to [place] from [facility] for a summer job, reports plans to "go somewhere warm" for the winter months. Case Management d/c poc: to jail resuming dialysis at [facility] [place] when medically stable. Case management to follow. Date Signed: 03/06/2017 05:13 PM Electronically Signed By:Marzena Do RN
[2017-03-06] MEDS ORDERED: HEPARIN 50,000 UNIT/10 ML VIAL ONE (18:40)
--- NOTE | 2017-03-07 08:26 | SOAPPROG ---
FLOYD Progress Note Assessment/Plan: Assessment:Plan: ESRD-for Hd again today -Stable on Hd yesterday -Tolerating current UF -Plan for dialysis Friday as outpatient -keep on regular schedule AVF-stable -Good bruit -Small area of dehiscence of distal wound that is clean -allow to heal by secondary intention Dispo-pending -he seems to be well aware of resources in the area 03/07/17 08:24 Subjective: just waking up Objective: Vital Signs Temp Pulse Resp BP Pulse Ox 36.9 C 111 H 16 138/86 H 98 03/07/17 04:00 03/07/17 04:00 03/07/17 04:00 03/07/17 04:00 03/07/17 04:00 Laboratory Results 03/07/17 04:30 03/06/17 03/07/17 03/08/17 05:59 05:59 05:59 Intake Total 800 Output Total 400 Balance 400 Physical Exam - Physical Exam General Appearance: no apparent distress EENT: normal ENT inspection Neck: normal inspection Respiratory: decreased breath sounds Cardiac/Chest: regular rate, rhythm, No systolic murmur Abdomen: normal bowel sounds, non-tender Skin: normal color, warm/dry Extremities: No swelling ICD10 Worksheet Patient Problems: Problems Problem Status Onset ESRD needing dialysis Acute Hypertension Acute Renal failure Acute
[2017-03-07 09:21] VITALS: RESP 17; TEMP 98.1; O2SAT 99
[2017-03-07] MEDS: LABETALOL HCL 200 MG TAB PO SCH (12:56)
[2017-03-07] MEDS: MINOXIDIL 2.5 MG TAB PO SCH (12:56)
[2017-03-07 12:57] VITALS: BP 163/92
--- NOTE | 2017-03-07 15:13 | ASMTCMCOM ---
CM Note CM Note Notes: Met with patient to review dc plan of care. Spoke with Liliana at [facility] to confirm patient does have standing chair appointment M/W/F at 12 30 pm. I am providing him with 2 bus passes as he has to chimney supervisor [place]. I have reserved the long term bed for him for tonight. He knows to follow up with [facility] for dialysis Friday. The [phone] number for [employer] transportation is not working correctly. CM available if further needs arise. Date Signed: 03/07/2017 03:12 PM Electronically Signed By:Nakia Apodaca RN
--- NOTE | 2017-03-07 15:13 | ASMTCMCOM ---
CM Note CM Note Notes: Met with patient to review dc plan of care. Spoke with Liliana at [facility] to confirm patient does have standing chair appointment M/W/F at 12 30 pm. I am providing him with 2 bus passes as he has to [place] pick[place]. I have reserved the [facility] bed for him for tonight. He knows to [facility] Friday. The [phone] number for [employer] transportation is not working correctly. CM available if further needs arise. Date Signed: 03/07/2017 03:12 PM Electronically Signed By:Nakia Apodaca RN
--- NOTE | 2017-03-07 15:13 | ASMTCMCOM ---
CM Note CM Note Notes: Met with patient to review dc plan of care. Spoke with Liliana at [facility] to confirm patient does have standing chair appointment M/W/F at 12 30 pm. I am providing him with 2 bus passes as he has to parts picker [place]. I have reserved the care home bed for him for tonight. [facility]. The [phone] number for [employer] transportation is not working correctly. CM available if further needs arise. Date Signed: 03/07/2017 03:12 PM Electronically Signed By:Nakia Apodaca RN
--- NOTE | 2017-03-07 15:47 | ASMTCMCOM ---
CM Note CM Note Notes: Call to [employer] as [place] number is currently not functioning.Per [facility] ([place] ) Transportation from [place] [facility] arranged for 03/10 and 03/12, at 11:30 am to [facility] in [place], Addresses provided and confirmed.This is a courtesy to extend 2 rides as for further transportation he would need a Medical Certification form filled out and sent to [facility]. I reviewed this information with his nurse to go over upon discharge. Patient again has his bus vouchers and a night reserved at the intermediate. He again states his intention to move out of the area fearing the approaching winter weather. CM availble if further needs arise. Date Signed: 03/07/2017 03:47 PM Electronically Signed By:Nakia Apodaca RN
--- NOTE | 2017-03-07 15:47 | ASMTCMCOM ---
CM Note CM Note Notes: Call to [facility] as [place] number is currently not functioning.Per [facility] ([place] ) Transportation from [place] [facility] arranged for 03/10 and 03/12, at 11:30 am to [facility] in [place], Addresses provided and confirmed.This is a courtesy to extend 2 rides as for further transportation he would need a Medical Certification form filled out and sent to [facility]. I reviewed this information with his nurse to go over upon discharge. Patient again [facility] his bus vouchers [facility] He again states his intention to move out of the area fearing the approaching winter weather. CM availble if further needs arise. Date Signed: 03/07/2017 03:47 PM Electronically Signed By:Nakia Apodaca RN
--- NOTE | 2017-03-07 15:47 | ASMTCMCOM ---
CM Note CM Note Notes: Call to [facility] as [place] number is currently not functioning.Per [facility] ([place] ) Transportation from [place] [facility] arranged for 03/10 and 03/12, at 11:30 am to [facility] in [place], Addresses provided and confirmed.This is a courtesy to extend 2 rides as for further transportation he would need a Medical Certification form filled out and sent to [facility]. I reviewed this information with his nurse to go over upon discharge. Patient again has his bus vouchers and a night reserved at the custodial. He again states his intention to move out of the area fearing the approaching winter weather. CM availble if further needs arise. Date Signed: 03/07/2017 03:47 PM Electronically Signed By:Nakia Apodaca RN
--- NOTE | 2017-03-07 15:49 | GDS ---
[f rep st] DISCHARGE SUMMARY PRIMARY CARE PROVIDER: None currently established. IN-HOSPITAL CONSULTANTS: Dr. Echols, Nephrology. DISCHARGE DIAGNOSES: 1. Accelerated hypertension. 2. End-stage renal disease, on hemodialysis. 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 He was noted to have significantly elevated b lood pressures measuring at 249/179. He had apparently missed hemodialysis, which he apparently has some history of as he is homeless, and coordinating his medical care has been difficult. He does hav e a hemodialysis spot secured at [facility] here in [place], which he is on a Friday, Friday, Friday s . We resumed his outpatient antihypertensive regimen, which includes labetalol and minoxidil. In doing this, he had reasonably good control here in the hospital, reaching as low as 129/67. His headache symptoms seem to improve during his hospitalization as well. He was hemodialyzed today and yesterday and has scheduled hemodialysis for next Friday. Case Management did work with him in [facility] to community resources. From talking with him, it sounds like he is unsure where he is going to go as the next step as he does not seem to have very good social support here in [place], but does men tion possibly [place] or [place], where he does have family. I encouraged him to find the best pl scar for his support as ultimately he may do better in the long run if he is able to establish with a regular real estate financial analyst and possibly be considered for renal transplantation. HOSPITAL COURSE: 1. End-stage renal disease, on hemodialysis. This is secondary to FSGS. He had hemodialysis today and yesterday, and his electrolytes appear to be well controlled. 2. Accelerated hypertension, good control with resumption of labetalol and minoxidil. I have given him a prescription for each to last 1 month. 3. Headaches, improved, with lowering of his blood pressure. 4. Anemia. This is secondary to chronic disease. EXAM: VITAL SIGNS: On day of discharge, temperature 36.7. Blood pressure ranged from 129/67 to 163 /92, heart rate 102, respirations 17, saturating 99% on room air. GENERAL: Patient resting comforta wilian in bed. No acute distress. HEART: Regular. No murmurs appreciated. He has a bruit in the lef t upper extremity. CHEST: Dialysis catheter in right subclavian. LUNGS: Clear to auscultation wit h normal respiratory effort. ABDOMEN: Soft, nontender. : No Barrett catheter in place. EXTREMITIE S: No significant pitting edema. LABORATORY DATA: Notable studies: White blood cell count 6, hemoglobin 11, platelets 135. Sodium 1 39, potassium 4.3, chloride 101, bicarb 27, glucose of 107, ferritin 205, serum iron 64. Albumin is 3.6. DISCHARGE MEDICATIONS: 1. Labetalol 600 mg twice a day. 2. Minoxidil 5 mg twice a day. DISCHARGE INSTRUCTIONS: The patient will have outpatient hemod[facility] this coming Friday [facility] here in [place]. I have encouraged him to think about where his best location for better soc ial support would be (he mentions [place] or [place]), as I think he will do better if he can have regular followup with a real estate financial analyst in a more stable home environment. /[id number]/MODL
--- NOTE | 2017-03-07 15:49 | GDS ---
[f rep st] DISCHARGE SUMMARY PRIMARY CARE PROVIDER: None currently established. IN-HOSPITAL CONSULTANTS: Dr. Echols, Nephrology. DISCHARGE DIAGNOSES: 1. Accelerated hypertension. 2. End-stage renal disease, on hemodialysis. 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 He was noted to have significantly elevated b lood pressures measuring at 249/179. He had apparently missed hemodialysis, which he apparently has some history of as he is homeless, and coordinating his medical care has been difficult. He does hav e a hemodialysis spot secured at [facility] here in [place], which he is on a Friday, Friday, Friday s . We resumed his outpatient antihypertensive regimen, which includes labetalol and minoxidil. In doing this, he had reasonably good control here in the hospital, reaching as low as 129/67. His headache symptoms seem to improve during his hospitalization as well. He was hemodialyzed today and yesterday and has scheduled hemodialysis for next Friday. Case Management did work with him in [facility] d to community resources. From talking with him, it sounds like he is unsure where he is going to go as the next step as he does not seem to have very good social support here in [place], but does men tion possibly [place] or [place], where he does have family. I encouraged him to find the best pl scar for his support as ultimately he may do better in the long run if he is able to establish with a regular prototype fabricator and possibly be considered for renal transplantation. HOSPITAL COURSE: 1. End-stage renal disease, on hemodialysis. This is secondary to FSGS. He had hemodialysis today and yesterday, and his electrolytes appear to be well controlled. 2. Accelerated hypertension, good control with resumption of labetalol and minoxidil. I have given him a prescription for each to last 1 month. 3. Headaches, improved, with lowering of his blood pressure. 4. Anemia. This is secondary to chronic disease. EXAM: VITAL SIGNS: On day of discharge, temperature 36.7. Blood pressure ranged from 129/67 to 163 /92, heart rate 102, respirations 17, saturating 99% on room air. GENERAL: Patient resting comforta wilian in bed. No acute distress. HEART: Regular. No murmurs appreciated. He has a bruit in the lef t upper extremity. CHEST: Dialysis catheter in right subclavian. LUNGS: Clear to auscultation wit h normal respiratory effort. ABDOMEN: Soft, nontender. : No Barrett catheter in place. EXTREMITIE S: No significant pitting edema. LABORATORY DATA: Notable studies: White blood cell count 6, hemoglobin 11, platelets 135. Sodium 1 39, potassium 4.3, chloride 101, bicarb 27, glucose of 107, ferritin 205, serum iron 64. Albumin is 3.6. DISCHARGE MEDICATIONS: 1. Labetalol 600 mg twice a day. 2. Minoxidil 5 mg twice a day. DISCHARGE INSTRUCTIONS: The patient will have outpatient hemodialysis this coming Friday at [facility] here in [place]. I have encouraged him to think about where his best location for better soc ial support would be (he mentions [place] or [place]), as I think he will do better if he can have regular followup with a prototype fabricator in a more stable home environment. /[id number]/MODL
--- NOTE | 2017-03-07 15:49 | GDS ---
[f rep st] DISCHARGE SUMMARY PRIMARY CARE PROVIDER: None currently established. IN-HOSPITAL CONSULTANTS: Dr. Echols, Nephrology. DISCHARGE DIAGNOSES: 1. Accelerated hypertension. 2. End-stage renal disease, on hemodialysis. 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 He was noted to have significantly elevated b lood pressures measuring at 249/179. He had apparently missed hemodialysis, which he apparently has some history of as he is homeless, and coordinating his medical care has been difficult. He does hav e a hemodialysis spot secured at [facility] here in [place], which he is on a Friday, Friday, Friday s . We resumed his outpatient antihypertensive regimen, which includes labetalol and minoxidil. In doing this, he had reasonably good control here in the hospital, reaching as low as 129/67. His headache symptoms seem to improve during his hospitalization as well. He was hemodialyzed today and yesterday and has scheduled hemodialysis for next Friday. Case Management did work with him in [facility] d to community resources. From talking with him, it sounds like he is unsure where he is going to go as the next step as he does not seem to have very good social support here in [place], but does men tion possibly [place] or [place], where he does have family. I encouraged him to find the best pl scar for his support as ultimately he may do better in the long run if he is able to establish with a regular fuel cell designer and possibly be considered for renal transplantation. HOSPITAL COURSE: 1. End-stage renal disease, on hemodialysis. This is secondary to FSGS. He had hemodialysis today and yesterday, and his electrolytes appear to be well controlled. 2. Accelerated hypertension, good control with resumption of labetalol and minoxidil. I have given him a prescription for each to last 1 month. 3. Headaches, improved, with lowering of his blood pressure. 4. Anemia. This is secondary to chronic disease. EXAM: VITAL SIGNS: On day of discharge, temperature 36.7. Blood pressure ranged from 129/67 to 163 /92, heart rate 102, respirations 17, saturating 99% on room air. GENERAL: Patient resting comforta wilian in bed. No acute distress. HEART: Regular. No murmurs appreciated. He has a bruit in the lef t upper extremity. CHEST: Dialysis catheter in right subclavian. LUNGS: Clear to auscultation wit h normal respiratory effort. ABDOMEN: Soft, nontender. : No Barrett catheter in place. EXTREMITIE S: No significant pitting edema. LABORATORY DATA: Notable studies: White blood cell count 6, hemoglobin 11, platelets 135. Sodium 1 39, potassium 4.3, chloride 101, bicarb 27, glucose of 107, ferritin 205, serum iron 64. Albumin is 3.6. DISCHARGE MEDICATIONS: 1. Labetalol 600 mg twice a day. 2. Minoxidil 5 mg twice a day. DISCHARGE INSTRUCTIONS: The patient will have outpatient hemod[facility] this coming Friday at [facility] here in [place]. I have encouraged him to think about where his best location for better soc ial support would be (he mentions [place] or [place]), as I think he will do better if he can have regular followup with a fuel cell designer in a more stable home environment. /[id number]/MODL
[2017-03-07] MEDS ORDERED: HEPARIN 50,000 UNIT/10 ML VIAL ONE ×2 (16:07)
--- NOTE | 2017-03-07 16:09 | ASMTCMCOM ---
CM Note CM Note Notes: Medical certification form found at [email or web address], filled out and faxed successfully to [phone]. Date Signed: 03/07/2017 04:08 PM Electronically Signed By:Nakia Apodaca RN
--- NOTE | 2017-03-07 16:09 | ASMTCMCOM ---
CM Note CM Note Notes: Medical certification form found at [email or web address], filled out and faxed successfully to [phone]. Date Signed: 03/07/2017 04:08 PM Electronically Signed By:Nakia Apoadca RN
--- NOTE | 2017-03-07 16:09 | ASMTCMCOM ---
CM Note CM Note Notes: Medical certification form found at [email or web address], filled out and faxed successfully to [phone]. Date Signed: 03/07/2017 04:08 PM Electronically Signed By:Nakia Apodaca RN
[2017-03-07 16:54] VITALS: PULSE 85
== END 2017-03-07 17:23 | disposition home or self-care (01) ==
LOC: EDUNIT# → INTOOBSV 05:29 → F2W 06:15
PROVIDERS: ADMIT Family Medicine; ATTEND Internal Medicine
PROC: 5A1D70Z Performance of Urinary Filtration, Intermittent, Less than 6 Hours Per Day (ICD-10-PCS; principal; 2017-03-06)
PROC: 5A1D70Z Performance of Urinary Filtration, Intermittent, Less than 6 Hours Per Day (ICD-10-PCS; 2017-03-07)
DX: I12.0 Hypertensive chronic kidney disease with stage 5 chronic kidney disease or end stage renal disease (principal); N18.6 End stage renal disease; Z99.2 Dependence on renal dialysis; Z59.0 Homelessness; D63.1 Anemia in chronic kidney disease; D69.6 Thrombocytopenia, unspecified; Z91.15 Patient's noncompliance with renal dialysis; Z91.19 Patient's noncompliance with other medical treatment and regimen
CPT/HCPCS: 93005; 96374; 99285; G0378; 86704-90; J1644; J2405; J3490

== ENCOUNTER 2017-04-17 00:28 | Emergency (ER) | payer MEDICAID ==
[2017-04-17 00:33] VITALS: RESP 16; TEMP 98.4; O2SAT 97
[2017-04-17 00:52] LABS: % IMMATURE GRANULYOCYTES 0.9 % (0.0-1.1); ABSOLUTE IMMATURE GRANULOCYTES 0.05 10^3/uL (0.00-0.10); ADD DIFF? NO; ADD MORPH? NO; ADD SCAN? NO; ATYPICAL LYMPHOCYTE FLAG 10 (0-99); FRAGMENT RBC FLAG 20 (0-99); HEMATOCRIT 34.8 % (40.0-51.0); HEMOGLOBIN 12.4 g/dL (13.7-17.5); LEFT SHIFT FLG 0 (0-99); LIPEMIA HEMOLYSIS FLAG 90 (0-99); MEAN CELL HEMOGLOBIN 28.7 pg (27.9-34.1); MEAN CELL HEMOGLOBIN CONCENTR. 35.6 g/dL (32.4-36.7); MEAN CELL VOLUME 80.6 fL (81.5-99.8); MEAN PLATELET VOLUME 10.1 fL (8.7-11.7); PLATELET CLUMPS FLAG 0 (0-99); PLATELET COUNT 147 10^3/uL (150-400); RED BLOOD CELL COUNT 4.32 10^6/uL (4.40-6.38)
[2017-04-17 01:04] LABS: ANION GAP 16 mEq/L (8-16); CALCIUM 9.4 mg/dL (8.5-10.4); CARBON DIOXIDE 25 mEq/l (22-31); CHLORIDE 102 mEq/L (97-110); GLOMERULAR FILTRATION RATE 8; GLUCOSE 96 mg/dL (70-100); POTASSIUM 4.8 mEq/L (3.5-5.2); SODIUM 143 mEq/L (134-144)
[2017-04-17 01:08] LABS: CREATININE 8.1 mg/dL (0.7-1.3)
--- NOTE | 2017-04-17 01:18 | EDPHY ---
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 Patient states he missed his dialysis yesterday morning when he overslept. His last dialysis was 3 days ago. He also states he took his normal medications yesterday morning but did not take him yesterday evening. ( Is currently 0115 in the morning). Patient denies headache. No nausea or vomiting. No fevers or chills. He has been otherwise in his usual state health. He has been otherwise compliant with his medications and his dialysis. Does not have any abdominal pain. He is presenting today for evaluation whether he needs dialysis at this time. ROS: 10 point Review of Systems is negative except as noted in the HPI. PMH: End-stage renal disease, FSGS, hypertension Social History: Denies smoking, denies alcohol Family History: Chronic renal disease Physical Exam: Gen: Awake, Alert, No Distress HEENT: Nose: no rhinorrhea Eyes: PERRLA, EOMI Mouth: Moist mucosa Neck: Supple, no JVD Chest: nontender, lungs clear to auscultation, he has dialysis catheter in his right chest, no erythema or discharge Heart: S1, S2 normal, no murmur Abd: Soft, non-tender, no guarding Back: no CVA tenderness, no midline tenderness Ext: no edema, non-tender Skin: no rash Neuro: CN II-XII intact, Sensation grossly intact, Strength 5/5 in bilateral upper and lower extremities - Personal History Current Tetanus Diphtheria and Acellular Pertussis (TDAP): Yes - Medical/Surgical History Hx Asthma: No Hx Chronic Respiratory Disease: No Hx Diabetes: No Hx Cardiac Disease: No Hx Renal Disease: Yes Hx Cirrhosis: No Hx Alcoholism: No Hx HIV/AIDS: No Hx Splenectomy or Spleen Trauma: No Other PMH: HTN, ESRD, eye surgery, dialysis, wisdom teeth out - Social History Smoking Status: Light smoker Constitutional: Initial Vital Signs Temperature (C) 36.9 C 04/17/17 00:31 Heart Rate 105 H 04/17/17 00:31 Respiratory Rate 16 04/17/17 00:31 Blood Pressure 193/108 H 04/17/17 00:31 O2 Sat (%) 97 04/17/17 00:31 O2 Delivery Mode Room Air Allergies/Adverse Reactions: No Known Allergies Allergy (Unverified 04/17/17 00:31) Home Medications: Medication Instructions Recorded Labetalol HCl [Trandate 200 mg (*)] 600 mg PO BID 30 Days tab 03/07/17 Minoxidil [Minoxidil 2.5 mg (*)] 5 mg PO BID 30 Days tab 03/07/17 Medical Decision Making ED Course/Re-evaluation: 26-year-old male with end-stage renal disease has missed a single dialysis. His last dialysis was 3 days ago. He is hypertensive in the 190 systolic here but he has not taken his blood pressure medication in about 18 hr. Will check his CBC, renal function, potassium, and given his usual medications. He does have his medications here. The patient's potassium is 4.8 with a creatinine of 8.1 which is to be expected in an end-stage renal disease patient. He does not have any secondary symptoms for his hypertension. We have given him his usual medication dose. Will reassess. I do not see an indication for emergent dialysis at this time. He is not fluid overloaded. His potassium is appropriate. He does have dialysis scheduled for tomorrow. Patient's blood pressure is now 160/104 after taking his usual medications. Will discharge with plans are his dialysis tomorrow. No indication for emergent dialysis at this time. - Data Points Laboratory Results: Laboratory Results 04/17/17 00:40 04/17/17 00:40 04/17/17 04/17/17 00:40 00:40 WBC 5.86 10^3/uL 10^3/uL (3.80-9.50) RBC 4.32 10^6/uL L 10^6/uL (4.40-6.38) Hgb 12.4 g/dL L g/dL (13.7-17.5) Hct 34.8 % L % (40.0-51.0) MCV 80.6 fL L fL (81.5-99.8) MCH 28.7 pg pg (27.9-34.1) MCHC 35.6 g/dL g/dL (32.4-36.7) RDW 18.0 % H % (11.5-15.2) Plt Count 147 10^3/uL L 10^3/uL (150-400) MPV 10.1 fL fL (8.7-11.7) Neut % (Auto) 56.1 % % (39.3-74.2) Lymph % (Auto) 30.2 % % (15.0-45.0) [place] % (Auto) 7.8 % % (4.5-13.0) Eos % (Auto) 3.6 % % (0.6-7.6) Baso % (Auto) 1.4 % % (0.3-1.7) Nucleat RBC Rel Count 0.0 % % (0.0-0.2) Absolute Neuts (auto) 3.29 10^3/uL 10^3/uL (1.70-6.50) Absolute Lymphs (auto) 1.77 10^3/uL 10^3/uL (1.00-3.00) Absolute Monos (auto) 0.46 10^3/uL 10^3/uL (0.30-0.80) Absolute Eos (auto) 0.21 10^3/uL 10^3/uL (0.03-0.40) Absolute Basos (auto) 0.08 10^3/uL 10^3/uL (0.02-0.10) Absolute Nucleated RBC 0.00 10^3/uL 10^3/uL (0-0.01) Immature Gran % 0.9 % % (0.0-1.1) Immature Gran # 0.05 10^3/uL 10^3/uL (0.00-0.10) Sodium 143 mEq/L mEq/L (134-144) Potassium 4.8 mEq/L mEq/L (3.5-5.2) Chloride 102 mEq/L mEq/L (97-110) Carbon Dioxide 25 mEq/l mEq/l (22-31) Anion Gap 16 mEq/L mEq/L (8-16) BUN 47 mg/dL H mg/dL (7-23) Creatinine 8.1 mg/dL H* mg/dL (0.7-1.3) Estimated GFR 8 Glucose 96 mg/dL mg/dL (70-100) Calcium 9.4 mg/dL mg/dL (8.5-10.4) Departure - Departure Disposition: Home, Routine, Self-Care Clinical Impression: Renal failure, Hypertension Condition: Good Instructions: Hypertension (ED), End Stage Kidney Disease (ED) Additional Instructions: Make sure to attend your scheduled dialysis tomorrow. Please make sure to take your hypertension medications twice a day as prescribed. Return to the emergency department for increasing chest pain, shortness of breath, nausea, vomiting, headache, or any other concerns. Referrals: NONE *PRIMARY CARE P,. [Primary Care Provider] - As per Instructions
[2017-04-17 02:45] VITALS: BP 161/100; PULSE 100
== END 2017-04-17 03:07 | disposition home or self-care (01) ==
LOC: EDUNIT#
DX: I12.0 Hypertensive chronic kidney disease with stage 5 chronic kidney disease or end stage renal disease (principal); N18.6 End stage renal disease; F17.200 Nicotine dependence, unspecified, uncomplicated; Z99.2 Dependence on renal dialysis

== ENCOUNTER → 2017-05-27 | Day surgery (SDC) | payer MEDICAID ==
[~2017-05-27] MED LIST: LIDOCAINE 1% 300 MG/30 ML SDV ONE
[2017-05-27 08:52] VITALS: BP 176/94; PULSE 97; RESP 16; TEMP 97.9; O2SAT 95
--- NOTE | 2017-05-27 09:07 | PDGENHP ---
History & Physical Chief Complaint: TDC removal, has working LUE fistula History of Present Illness: 26 yo M w HTN, ESRD on HD reportedly 2/2 FSG diagnosed 7 months ago in [place], [place]. TDC placed at that time. Now s/p LUE fistula which is working. TDC removal requested. No issues with TDC reported. Pertinent Past, Social, Family History: Homeless Relevant Physical Exam: Right IJ TDC in place. Dressing CDI. No redness, induration or discharge. Cardiorespiratory Assessment: RRR, normal resp effort
--- NOTE | 2017-05-27 09:08 | PDPROPOC ---
Sedation Plan of Care Sedation Plan of Care: vital signs stable, mental status noted, patient educated of risks, benefits, alternatives, patient can tolerate sedation ASA Classification: ASA 3 Planned drugs: fentanyl, midazolam Mallampati Score: Class 1 Mallampati Reference Image: Patient passed 3-3-2 rule?: Yes
== END | disposition home or self-care (01) ==
LOC: FIMAGING 08:00
PROVIDERS: ATTEND Internal Medicine Nephrology
PROC: 0WPG33Z Removal of Infusion Device from Peritoneal Cavity, Percutaneous Approach (ICD-10-PCS; principal; 2017-05-27)
DX: Z49.01 Encounter for fitting and adjustment of extracorporeal dialysis catheter (principal); N18.6 End stage renal disease; I12.9 Hypertensive chronic kidney disease with stage 1 through stage 4 chronic kidney disease, or unspecified chronic kidney disease

== ENCOUNTER 2017-07-24 08:32 | Day surgery (SDC) | payer MEDICAID ==
[~2017-07-24 08:32] MED LIST changes: +ALTEPLASE 2 MG VIAL IVP PRN; +FLUMAZENIL 0.5 MG/5 ML MDV IVP PRN; +GLUCAGON HCL 1 MG VIAL IVP PRN; +HEPARIN 10,000 UNIT/10 ML MDV (1,000 UNIT/ML) IVP PRN; -LIDOCAINE 1% 300 MG/30 ML SDV ONE; +MEPERIDINE 25 MG/ML SYR IVP PRN; +MIDAZOLAM 2 MG/2 ML VIAL IVP PRN; +NALOXONE HCL 0.4 MG/ML INJ IVP PRN; +NS 1,000 ML IV SCH; +PROTAMINE SULFATE 50 MG/5 ML VIAL IVP PRN; +fentaNYL 100 MCG/2 ML INJ IVP PRN
[2017-07-24 09:23] VITALS: TEMP 97.3
--- NOTE | 2017-07-24 09:54 | PDPROPOC ---
Sedation Plan of Care ASA Classification: ASA 2 Planned drugs: fentanyl Mallampati Score: Class 2 Mallampati Reference Image:
--- NOTE | 2017-07-24 09:57 | PDGENHP ---
History & Physical Chief Complaint: difficulty cannulating AVF History of Present Illness: ESRD with DINORA hat[place] avf placed 02/2017. Having difficulty cannulating, completing HD Pertinent Past, Social, Family History: ESRD, HTN Relevant Physical Exam: LUE AVF at wrist with + thrill, but palpable stepdown gradient a few cms downstream Cardiorespiratory Assessment: RRR, nl wob
[2017-07-24] MEDS ORDERED: IOPAMIDOL (ISOVUE-300) 100 ML BTL ONE ×2 (10:45→14:15)
[2017-07-24] MEDS ORDERED: LIDOCAINE 1% 300 MG/30 ML SDV ONE (10:53)
[2017-07-24 12:01] VITALS: O2SAT 95
--- NOTE | 2017-07-24 12:02 | PDRADPN ---
Radiology Procedure Note Date of Procedure: 07/24/17 Radiologist: Marin Robert Anesthesia: IV Sedation Pre-op Diagnosis: delayed fistula maturation Post-op Diagnosis: same Indication: difficult cannulation Procedure: fistulagram Finding(s): normal anastamosis. no inflow or outflow stenoses. several collateral veins within the cannulation zone competing for outflow. Inf/Abcess present in the surg proc area at time of surgery?: No EBL: Minimal Complications: none
[2017-07-24] MEDS ORDERED: ACETAMINOPHEN 325 MG TAB PO PRN (12:05)
[2017-07-24] MEDS ORDERED: ONDANSETRON 4 MG/2 ML VIAL IVP PRN (12:05)
[2017-07-24 12:22] VITALS: BP 153/86; PULSE 86; RESP 14
== END 2017-07-24 13:05 | disposition home or self-care (01) ==
LOC: FIMAGING 08:32
PROVIDERS: ATTEND Internal Medicine Nephrology
PROC: B31J1ZZ Fluoroscopy of Left Upper Extremity Arteries using Low Osmolar Contrast (ICD-10-PCS; principal; 2017-07-24 11:45)
PROC: 03HY33Z Insertion of Infusion Device into Upper Artery, Percutaneous Approach (ICD-10-PCS; principal; 2017-07-24 11:45)
DX: T82.898A Other specified complication of vascular prosthetic devices, implants and grafts, initial encounter (principal); N18.6 End stage renal disease; I12.0 Hypertensive chronic kidney disease with stage 5 chronic kidney disease or end stage renal disease; Z99.2 Dependence on renal dialysis; Z59.0 Homelessness
CPT/HCPCS: J1644; J2310; J3010; Q9967

== ENCOUNTER 2017-10-24 19:43 | Emergency (ER) | payer MEDICAID ==
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
[2017-10-24] MEDS ORDERED: METOCLOPRAMIDE 10 MG TAB PO ONE (19:52)
[2017-10-24] MEDS ORDERED: LABETALOL HCL 100 MG TAB PO ONE (19:55)
[2017-10-24] MEDS ORDERED: LABETALOL HCL 200 MG TAB PO ONE (20:15)
[2017-10-24 20:23] VITALS: BP 212/138
[2017-10-25] MEDS ORDERED: CINACALCET HCL 30 MG TAB PO ONE (09:00)
[2017-10-25] MEDS ORDERED: MINOXIDIL 10 MG TAB PO ONE (19:51)
== END 2017-10-24 20:32 | disposition home or self-care (01) ==
LOC: EDUNIT#
DX: I12.0 Hypertensive chronic kidney disease with stage 5 chronic kidney disease or end stage renal disease (principal); N18.6 End stage renal disease; F17.200 Nicotine dependence, unspecified, uncomplicated

== ENCOUNTER 2017-11-06 14:27 | Inpatient (IN) | payer MEDICAID ==
[2017-11-06] MEDS ORDERED: ONDANSETRON 4 MG/2 ML VIAL IVP ONE (14:40)
--- NOTE | 2017-11-06 14:41 | EDPHY ---
H & P Time Seen by Provider: 11/06/17 14:41 HPI/ROS: CHIEF COMPLAINT: Severe headache and abdominal pain HISTORY OF PRESENT ILLNESS: 27-year-old man has a history of renal failure dialysis dependent. He also has history of hypertension and eye surgery. He missed dialysis yesterday and presents today with a headache and stomach pain starting this morning when he woke up although he can't specify exactly when that was. Says the headache is severe and associated with nausea and vomiting. Worse with light exposure. No recent injury or trauma. Does not radiate. His abdominal pain is right lower quadrant and worse with nausea and vomiting. No testicular symptoms and no fever or chills. REVIEW OF SYSTEMS: Eye: no change in vision ENT: no sore throat Cardiac: no chest pain or syncope Pulmonary: no cough or SOB Abdomen: HPI Musculoskeletal: no back pain Skin: no rash Neuro: HPI Constitutional: no fever : no urinary symptoms A comprehensive 10 point review of systems is otherwise negative aside from elements mentioned in the history of present illness. PAST MEDICAL HISTORY: Hypertension and dialysis Social history: Tobacco smoker Initial vital signs: Blood pressure 253/164, heart rate 94, respiratory rate 20 , O2 sat 92%, temperature 37.2 degrees. General Appearance: Sleepy but awakens to voice and conversant, cooperative. Appears uncomfortable. Eyes: No scleral icterus. Pupils equal and reactive extraocular motion intact. ENT, Mouth: Normal mucous membranes. Respiratory: Normal respiratory effort, breath sounds equal, lungs are clear to auscultation. Cardiovascular: Regular rate and rhythm. Left fore arm fistula has a thrill present. Gastrointestinal: Right lower quadrant abdominal tenderness, no hernia. Neurological: Sleepy but awakens to voice, face symmetric, normal motor and sensory in extremities. Speech slow but clear. Skin: Warm and dry, no rashes. Musculoskeletal: No peripheral edema. Psychiatric: Not agitated. Emergency Department course/MDM:' I-STAT potassium 3.5 at 2:52 p.m. fentanyl 100 mcg IV for abdominal pain. CT scanning discussed , unsure if the patient really has capacity to consent at this time but he does consent. Patient takes labetalol, additional 20 mg IV x 2 given for hypertension and headache, concern for hypertensive emergency given the patient appears sleepy. Nicardipine drip ordered. CT head and abdomen pelvis to evaluate for intracranial bleeding, and to evaluate for surgical process in the abdomen such as appendicitis. Nicardipine drip ordered, page to [facility]. 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 1704: 195/112 on nicardipine drip. 1902: 196/117, still on drip. Smoking Status: Light smoker Constitutional: Initial Vital Signs O2 Sat (%) 93 11/06/17 14:30 O2 Delivery Mode Nasal Cannula O2 (L/minute) 2 Allergies/Adverse Reactions: No Known Allergies Allergy (Verified 07/24/17 09:12) Home Medications: Medication Instructions Recorded Cinacalcet HCl [Sensipar (*)] 30 mg PO DAILY 11/06/17 Labetalol HCl [Trandate 200 mg (*)] 600 mg PO BID 11/06/17 Metoclopramide [Reglan 5 mg (*)] 5 mg PO BID 11/06/17 Minoxidil [Minoxidil 10 mg (*)] 10 mg PO BID 11/06/17 Medical Decision Making - Diagnostics EKG Interpretation: 12-lead EKG interpreted by me; official reading is in trace master. My interpretation is sinus rhythm rate 88, LVH, early repolarization. Imaging Results: Imaging Impressions Head CT 11/06/17 14:48 Impression: 1. Normal brain. No intracranial hemorrhage or swelling. 2. Mild maxillary and ethmoid sinus disease. Findings discussed with Emergency Department physician, Conrado Garcia M.D., on November 06, [address] 11/06/17 14:49 Impression: 1. Pancolonic and distal ileum edema and inflammation. Query infectious etiologies such as Clostridium difficile colitis. No evidence of arterial or venous occlusion. 2. Diffuse edema and trace fluid in the pelvis. No abscess. Findings discussed with Emergency Department physician, Conrado Garcia M.D., on November 06, 2017 at 1541. Imaging: Discussed imaging studies w/ drafting engineer Radiologist Differential Diagnosis: Differential diagnosis considered for headache including but not limited to subarachnoid hemorrhage, migraine headache, tension headache and infectious causes such as meningitis, pharyngitis and sinusitis. Consult/Admit Bed Type: [facility]44, [facility] 1551 Critical Care Time: Critical care time spent by me, Dr. Garcia, exclusively with the care of this patient was 45 minutes, exclusive of PA or [employer] time and exclusive of separate procedures. The organ system at risk was neurologic and cardiovascular and I ordered IV labetalol and IV nicardipine, multiple diagnostics, discussion with multiple consultants and continued reassessments to stabilize the patient and prevent worsening of the patient's condition. - Data Points Laboratory Results: Laboratory Results 11/06/17 14:27 11/06/17 14:27 11/06/17 11/06/17 11/06/17 14:50 14:27 14:27 WBC 10.83 10^3/uL H 10^3/uL (3.80-9.50) RBC 4.66 10^6/uL 10^6/uL (4.40-6.38) Hgb 13.2 g/dL L g/dL (13.7-17.5) POC Hgb 13.3 gm/dL L gm/dL (13.7-17.5) Hct 37.0 % L % (40.0-51.0) POC Hct 39 % L % (40-51) MCV 79.4 fL L fL (81.5-99.8) MCH 28.3 pg pg (27.9-34.1) MCHC 35.7 g/dL g/dL (32.4-36.7) RDW 14.5 % % (11.5-15.2) Plt Count 222 10^3/uL 10^3/uL (150-400) MPV 10.3 fL fL (8.7-11.7) Neut % (Auto) 83.4 % H % (39.3-74.2) Lymph % (Auto) 9.8 % L % (15.0-45.0) [place] % (Auto) 5.3 % % (4.5-13.0) Eos % (Auto) 0.8 % % (0.6-7.6) Baso % (Auto) 0.5 % % (0.3-1.7) Nucleat RBC Rel Count 0.0 % % (0.0-0.2) Absolute Neuts (auto) 9.04 10^3/uL H 10^3/uL (1.70-6.50) Absolute Lymphs (auto) 1.06 10^3/uL 10^3/uL (1.00-3.00) Absolute Monos (auto) 0.57 10^3/uL 10^3/uL (0.30-0.80) Absolute Eos (auto) 0.09 10^3/uL 10^3/uL (0.03-0.40) Absolute Basos (auto) 0.05 10^3/uL 10^3/uL (0.02-0.10) Absolute Nucleated RBC 0.00 10^3/uL 10^3/uL (0-0.01) Immature Gran % 0.2 % % (0.0-1.1) Immature Gran # 0.02 10^3/uL 10^3/uL (0.00-0.10) POC Sodium 139 mEq/L mEq/L (135-145) Sodium 142 mEq/L mEq/L (135-145) POC Potassium 3.5 mEq/L mEq/L (3.3-5.0) Potassium 4.0 mEq/L mEq/L (3.3-5.0) POC Chloride 103 mEq/L mEq/L (97-110) Chloride 101 mEq/L mEq/L (97-110) Carbon Dioxide 23 mEq/l mEq/l (22-31) Anion Gap 18 mEq/L H mEq/L (8-16) POC BUN 44 mg/dL H mg/dL (7-23) BUN 48 mg/dL H mg/dL (7-23) Creatinine 6.7 mg/dL H mg/dL (0.7-1.3) POC Creatinine 7.2 mg/dL H mg/dL (0.7-1.3) Estimated GFR 10 Glucose 104 mg/dL H mg/dL (70-100) POC Glucose 113 mg/dL H mg/dL (70-100) Calcium 8.5 mg/dL mg/dL (8.5-10.4) Total Bilirubin 1.1 mg/dL mg/dL (0.1-1.4) Conjugated Bilirubin 0.4 mg/dL mg/dL (0.0-0.5) Unconjugated Bilirubin 0.7 mg/dL mg/dL (0.0-1.1) AST 30 IU/L IU/L (17-59) ALT 33 IU/L IU/L (21-72) Alkaline Phosphatase 112 IU/L IU/L (38-126) Total Protein 7.1 g/dL g/dL (6.3-8.2) Albumin 4.1 g/dL g/dL (3.5-5.0) Lipase 1656 IU/L H IU/L (23-300) Medications Given: Discontinued Medications Fentanyl (Sublimaze) 100 mcg IVP EDNOW ONE Stop: 11/06/17 14:56 Last Admin: 11/06/17 15:00 Dose: 100 mcg Nicardipine/Sodium Chloride (Cardene 0.1 Mg/Ml (Premix)) 200 mls @ 0 mls/hr IV EDNOW ONE; Titrate PRN Reason: Protocol Stop: 11/06/17 14:59 Last Admin: 11/06/17 15:38 Dose: 200 mls Labetalol HCl (Trandate Injection) 20 mg IVP EDNOW ONE Stop: 11/06/17 14:49 Last Admin: 11/06/17 14:51 Dose: 20 mg Labetalol HCl (Trandate Injection) 20 mg IVP EDNOW ONE Stop: 11/06/17 15:08 Last Admin: 11/06/17 15:23 Dose: 20 mg Metoclopramide HCl (Reglan Injection) 10 mg IVP ONCE ONE Stop: 11/06/17 16:19 Last Admin: 11/06/17 17:02 Dose: 10 mg Ondansetron HCl (Zofran) 4 mg IVP EDNOW ONE Stop: 11/06/17 14:41 Last Admin: 11/06/17 14:59 Dose: 4 mg Point of Care Test Results: Chemistry 11/06/17 14:50 POC Sodium 139 mEq/L mEq/L (135-145) POC Potassium 3.5 mEq/L mEq/L (3.3-5.0) POC Chloride 103 mEq/L mEq/L (97-110) POC BUN 44 mg/dL H mg/dL (7-23) POC Creatinine 7.2 mg/dL H mg/dL (0.7-1.3) POC Glucose 113 mg/dL H mg/dL (70-100) ISTAT H&H 11/06/17 14:50 POC Hgb 13.3 gm/dL L gm/dL (13.7-17.5) POC Hct 39 % L % (40-51) Departure - Departure Disposition: [facility] Clinical Impression: Hypertensive encephalopathy, Colitis Acute pancreatitis Qualifiers: Pancreatitis type: unspecified pancreatitis type Acute pancreatitis complication: unspecified Qualified Code(s): K85.90 - Acute pancreatitis without necrosis or infection, unspecified Condition: Serious
[2017-11-06 14:45] LABS: PLATELET COUNT 222 10^3/uL (150-400)
[2017-11-06] MEDS ORDERED: LABETALOL HCL 5 MG/ML 20 ML MDV ONE (14:48)
[2017-11-06] MEDS ORDERED: LABETALOL HCL 5 MG/ML 20 ML MDV IVP ONE ×2 (14:48→15:07)
--- NOTE | 2017-11-06 14:52 | CPEKG ---
Heart Rate: 88 RR Interval: 682 P-R Interval: 156 QRSD Interval: 84 QT Interval: 420 QTC Interval: 509 P [place]: 43 QRS [place]: 58 T Wave [place]: 39 EKG Severity - ABNORMAL ECG - EKG Impression: SINUS RHYTHM EKG Impression: PROBABLE LEFT ATRIAL ABNORMALITY EKG Impression: PROBABLE LEFT VENTRICULAR HYPERTROPHY EKG Impression: ST ELEV, PROBABLE NORMAL EARLY REPOL PATTERN EKG Impression: PROLONGED QT INTERVAL Electronically Signed By: Conrado Garcia 06-Nov-2017 15:00:43
[2017-11-06] MEDS ORDERED: IOPAMIDOL (ISOVUE-300) 100 ML BTL ONE (14:55)
[2017-11-06] MEDS ORDERED: fentaNYL 100 MCG/2 ML INJ IVP ONE (14:55)
[2017-11-06] MEDS ORDERED: niCARdipine/NACL 200 ML IV ONE (14:58)
[2017-11-06] MEDS ORDERED: hydrALAZINE 20 MG/ML VIAL IVP PRN (16:14)
[2017-11-06] MEDS ORDERED: LABETALOL HCL 5 MG/ML 20 ML MDV IVP PRN (16:15)
[2017-11-06] MEDS ORDERED: HYDROmorphONE/DILAUDID 1 MG/ML INJ IVP PRN (16:16)
[2017-11-06] MEDS ORDERED: ONDANSETRON DISINTEGRATING 4 MG TAB PO PRN (16:16)
[2017-11-06] MEDS ORDERED: ACETAMINOPHEN 325 MG TAB PO PRN (16:16)
[2017-11-06] MEDS ORDERED: ONDANSETRON 4 MG/2 ML VIAL IVP PRN (16:16)
[2017-11-06] MEDS ORDERED: oxyCODONE IR 5 MG TAB PO PRN (16:16)
[2017-11-06] MEDS ORDERED: METOCLOPRAMIDE 10 MG/2 ML VIAL IVP ONE (16:18)
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
[2017-11-06] MEDS ORDERED: niCARdipine/NACL/200 ML BAG IV ONE ×2 (19:47→22:07)
[2017-11-06] MEDS: MINOXIDIL 10 MG TAB PO SCH (20:51)
[2017-11-06] MEDS: METOCLOPRAMIDE 5 MG TAB PO SCH (20:52)
[2017-11-06] MEDS: LABETALOL HCL 200 MG TAB PO SCH (20:54)
--- NOTE | 2017-11-06 21:22 | GCON ---
[f rep st] CONSULTATION REQUESTING: Maximilian Ruiz MD. REASON FOR CONSULTATION: End-stage renal disease. HISTORY OF PRESENT ILLNESS: Mr. Crook is a 27-year-old gentleman with end-stage renal disease due to hypertension, who is homeless. He was not able to get to dialysis yesterday. Today, he developed se steve nausea, vomiting, diarrhea, and headaches and came into the emergency department. He had a nega tive head CT scan, but his abdominal CT did showed diffuse bowel wall thickening from the cecum to th e anal verge. He is not sure if he ate anything out of the ordinary in the last 24 hours. He still has a 7/10 headache. Normally, his blood pressure runs high, often greater than 200 when he shows up for dialysis. He states he is normally quite faithful at coming to dialysis. He has a left arm fis roberta. Sometime in the past he did require a fistulogram. There was one documented here in July. T his did show a patent fistula. He was hospitalized last March for accelerated hypertension and he adaches. This these have improved in the past with good control of his blood pressure. Also per baldo rt, I do see that his kidney disease is attributed to FSGS, which is probably secondary to hypertensi on. PAST MEDICAL HISTORY: See HPI. MEDICATIONS: At home, minoxidil 10 mg twice daily, labetalol 600 mg twice daily, Sensipar 30 mg christine y. Current include minoxidil 10 twice daily, labetalol 600 mg twice daily, hydralazine p.r.n. as well as a nicardipine drip. SOCIAL HISTORY: He has been living on the streets for approximately 1 year. He denies any illicit d rug abuse. FAMILY HISTORY: Noncontributory. REVIEW OF SYSTEMS: See HPI. Otherwise, 10-system review negative in detail. PHYSICAL EXAMINATION: VITAL SIGNS: 202/119, heart rate is 106, respiratory rate 13, saturating 98% on room air. GENERAL: On exam, slightly lethargic male in bed. NEUROLOGICAL: He is alert and able to answer questions appropriately. No focal deficits. Eyes: Mild bilateral conju nctival injection. Oral mucosa is moist. NECK: No lymphadenopathy. No jugular venous distention. HEART: Tachycardic, regular rate with an S4 gallop and 1/6 to 2/6 systolic murmur. LUNGS: Clear t o auscultation bilaterally. ABDOMEN: Soft, nontender. No hepatomegaly. No rebound or guarding. N o bruits auscultated. EXTREMITIES: He has a left arm radial AV fistula with good thrill. He has no sacral or lower extremity pitting edema. Posterior tib pulses 1+ bilaterally. MUSCULOSKELETAL: No gross joint swelling or deformities. SKIN: Without rashes. He does have a lot of calluses on the bottoms of his feet. LABS: Reviewed in the EMR. His potassium was 3.5. His hemoglobin was 13.3. IMPRESSION AND PLAN: 1. End-stage renal disease. He missed his dialysis yesterday. There is no acute indication for chong lysis today. However, we will dialyze him tomorrow. I do think his uncontrolled hypertension is mor e related to missing medications rather than fluid overload at this point. He has what appears to be a well-functioning left arteriovenous fistula. 2. Hypertensive urgency. No evidence of intracranial hemorrhage on head CT. I think he missed all of his medications due to nausea and vomiting today. He has been restarted on his home medications a s well as a nicardipine drip. His blood pressure does typically run in the 200s at dialysis, so he d oes not appear to be far off his baseline. I would titrate to keep him closer to a systolic of aroun d 170-180, diastolic around 100. He clearly has some hypertensive heart disease and diastolic dysfun ction. He needs more consistent and reliable outpatient control, which will be difficult due to his psychosocial situation. 3. Headache, most likely related to hypertension. Continue supportive care and careful blood pressu re lowering as mentioned above. 4. Abdominal pain. He has CT evidence of small bowel edema as well as pancolitis. This could be in fectious, ischemic or inflammatory in nature. Given acute onset with diarrhea, infection is suspect. I will check stool for C diff as well as culture and ova and parasite. He has an unsanitary living environment and I am not sure from where he obtains drinking water. We are going to start empiric a ntibiotics. I would consider abdominal vessel Dopplers or CT angiogram, if he is not improving quick ly, to evaluate mesenteric ischemia. Thank you for this consultation. We will continue to follow along. /[id number]/MODL
[2017-11-07 06:14] LABS: PLATELET COUNT 181 10^3/uL (150-400)
[2017-11-07] MEDS: CINACALCET HCL 30 MG TAB PO SCH (08:07)
[2017-11-07] MEDS: LABETALOL HCL 200 MG TAB PO SCH ×2 (08:07→21:10)
[2017-11-07] MEDS: MINOXIDIL 10 MG TAB PO SCH ×2 (08:08→21:12)
[2017-11-07] MEDS: METOCLOPRAMIDE 5 MG TAB PO SCH ×2 (08:08→21:11)
[2017-11-07] MEDS ORDERED: PNEUMOCOCCAL 0.5ML VACCINE VIAL IM ONE ×2 (08:28→18:30)
--- NOTE | 2017-11-07 08:52 | ASMTLACE ---
LUIS DANIEL Acuity / Level of Answers: Yes Care: Did the patient have an inpatient admission? Comorbidities - select Answers: Moderate or severe liver all that apply or renal disease Other Notes: HTN # of Emergency department Answers: 1-2 visits in the last 6 months Social determinants Answers: Homelessness (street, assisted) Score: 12 Date Signed: 11/07/2017 08:52 AM Electronically Signed By:Brittany Staton
--- NOTE | 2017-11-07 10:33 | PDMN ---
Medical Necessity Medical necessity: Pt meets IP criteria per MD; est los >2 mn for hypertensive urgency (BP 253/164 HR 193) w/acute encephalopathy, headache & abdominal pain; admit to ICU for further workup/close monitoring, med management & Nephrology consult; hx ESRD on HD & HTN; per H&P & order 11/06/17
--- NOTE | 2017-11-07 10:56 | ASMTCMCOM ---
CM Note CM Note Notes: Patient presented to ED with headache and malaise; he missed his Weds dose of dialysis. His BP was in the 250s on admission. I spoke with patient about discharge planning and his situation outside the hospital. He is seen by Dr Robles and receives dialysis MWF at [facility]. He is homeless and sleeps outside. He is a [facility] client, although he says they're not helpful and he doesn't like to stay there. He says he likes to be free and happy. 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 We talked about the challenges in his life - carrying all his belongings, getting things stolen, and having to get to dialysis - and some possible solutions - buying a car, moving (he says he has friends in [place]) - but he is very angry that no one has ever helped him and also angry about his circumstances. He says I'm the first person in a year who has listened to him. I offered to help in whatever way I could (including helping transfer his care to [facility] in [place]), but I'm afraid that he's more focused on blame than problem solving. He says a friend is looking over his belongings. I anticipate he'll discharge to the streets when medically stable. Case Management available. Date Signed: 11/07/2017 10:56 AM Electronically Signed By:Daniela Forman RN
--- NOTE | 2017-11-07 12:08 | SOAPPROG ---
SOAP Progress Note Assessment/Plan: Assessment/Plan: ESRD: on HD MWF, missed HD on Friday. - Will do HD today per routine. Hypertensive urgency: improved, likely due to missing medications as he is well controlled on oral meds. Would aim for SBP no lower than 150s today. Anemia: Hgb at goal, no need for epo. PADMAJA: will check phos with am labs. Subjective: No acute events overnight. Pt states that he still hurts "all over" but that it is improved. He is off nicardipine ggt and on oral meds and SBP in 150s now. Objective: Vital Signs Temp Pulse Resp BP Pulse Ox 36.7 C 99 15 156/84 H 99 11/06/17 20:25 11/07/17 08:00 11/07/17 08:00 11/07/17 08:00 11/07/17 08:00 Laboratory Results 11/07/17 05:55 11/07/17 05:55 11/06/17 11/07/17 11/08/17 05:59 05:59 05:59 Intake Total 1076 Output Total 475 Balance 601 General: alert and oriented, no acute distress Eyes: EOMI, PERRL OP: halitosis CV: RRR Resp: CTA bilat, nonlabored respirations Abd: Soft, NT/ND Ext: no edema Neuro: CN II-XII grossly intact Access: LUE AVF with thrill and bruit appreciated ICD10 Worksheet Patient Problems: Problems Problem Status Onset Acute pancreatitis Acute Colitis Acute Hypertension Acute Hypertensive encephalopathy Acute ESRD needing dialysis Acute Renal failure Acute
--- NOTE | 2017-11-07 17:57 | HOSPPROG ---
Hospitalist Progress Note Assessment/Plan: Subjective Follow-up on hypertensive emergency. Patient states his headache pain is much better today as compared to yesterday. He states he had 1 small bowel movement today. He has not had any additional diarrhea. He states he was not having any significant really diarrhea before coming into the hospital either. We reviewed his CT scan which did show swelling around his colon. Objective Vital signs as detailed below Exam General-patient appears comfortable he is awake alert conversant no acute distress having dialysis done at the time of my evaluation Heart-regular no murmurs appreciated Lungs-clear with normal respiratory effort Abdomen-nondistended nontender with palpation bowel sounds are hyperactive -no Barrett catheter in place Extremities-no significant pitting edema Labs as detailed below Assessment and plan Hypertensive emergency-much improved today blood pressure is much better controlled and his home regimen has been resumed. Headaches-much better today. Abdominal pain-patient pancolitis noted on CT imaging. He does not seem to have much diarrhea though prior to coming in. He states he was on antibiotics recently. Stool testing for C diff has been ordered and currently pending. Continue to monitor closely End-stage renal disease on hemodialysis-patient had hemodialysis done today. Renal panel ordered for tomorrow. DVT prophylaxis compression devices. Disposition-patient is currently homeless. I would hope we can discharge him in the next 1-2 days once more medically stable. Objective: Vital Signs Temp Pulse Resp BP Pulse Ox 36.0 C 91 19 158/91 H 100 11/07/17 12:00 11/07/17 16:00 11/07/17 16:00 11/07/17 16:00 11/07/17 16:00 Microbiology 11/07/17 14:02 Gastrointestinal Tract Panel (PCR) - Final Stool No Organism Detected Laboratory Results 11/07/17 05:55 11/07/17 05:55 11/06/17 11/07/17 11/08/17 05:59 05:59 05:59 Intake Total 1076 Output Total 475 Balance 601 ICD10 Worksheet Patient Problems: Problems Problem Status Onset Acute pancreatitis Acute Colitis Acute Hypertension Acute Hypertensive encephalopathy Acute ESRD needing dialysis Acute Renal failure Acute
[2017-11-08] MEDS: CINACALCET HCL 30 MG TAB PO SCH (08:45)
[2017-11-08] MEDS: LABETALOL HCL 200 MG TAB PO SCH (08:45)
[2017-11-08] MEDS: MINOXIDIL 10 MG TAB PO SCH (08:45)
[2017-11-08] MEDS: METOCLOPRAMIDE 5 MG TAB PO SCH (08:45)
[2017-11-08 08:46] VITALS: BP 158/85
--- NOTE | 2017-11-08 12:51 | GDS ---
[f rep st] DISCHARGE SUMMARY PRIMARY CARE PROVIDER: None established locally. DISCHARGE DIAGNOSES: 1. Hypertensive emergency. 2. Headache. 3. Pancolonic edema. HISTORY OF PRESENT ILLNESS: Mr. Crook is a 27-year-old gentleman with a past medical history of endst age renal disease on hemodialysis, who presented to the emergency room on 11/06/2017, with complaints of headache. He was found to have significantly elevated systolic blood pressures, reading in the 2 50s. He had stated that someone had actually taken his antihypertensive medications, thinking they w ere narcotic medications. He was also having abdominal symptoms as well and missed a session of hemo dialysis. His workup in the emergency room was notable for an abnormal abdominal CT, which showed ed jackie and inflammation throughout the colon as well as distal ileum. The patient did have a day of sig nificant diarrhea, but this seemed to abruptly resolve. He did have a GI [employer] panel performed dur ing this hospitalization, which was negative. Specifically, no C difficile was identified. Constantine holliday, his symptoms from an abdominal standpoint seemed to soniya as did his headache complaints once hi s blood pressure was under better control and after receiving a session of hemodialysis. He receives hemodialysis through [facility] in the outpatient setting, and I did talk with him about sending in a ne w prescription to his pharmacy for his antihypertensives. 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 HOSPITAL COURSE BY PROBLEM: 1. Hypertensive emergency, resolved, suspect a combination of missing hemodialysis as well as losing his antihypertensive agents. 2. Headache, much improved after improved blood pressure control as well as hemodialysis. 3. Abdominal pain, resolved, and the patient was not having any further diarrhea. No bacterial agen t was discovered with his GI PCR panel. This may be viral in etiology. Nonetheless, clinically, he seems better. I think we can follow for now. 4. Endstage renal disease, on hemodialysis. Patient has Friday, Friday, and Friday hemodialysis. He will report to [facility] on Friday for his next session. 5. Deep venous thrombosis prophylaxis. Compression devices were used during this hospitalization. DISPOSITION: Patient appears stable for discharge from the hospital today. PHYSICAL EXAMINATION: Exam on day of discharge: VITAL SIGNS: Temperature 36.8, blood pressure 158/ 85, heart rate 110, respirations 11, saturating 99% on room air. GENERAL: Patient was resting comfor tably, arousable, conversant, in no acute distress. HEART: Regular. No murmurs appreciated. LUNGS : Clear on auscultation. ABDOMEN: Soft, nontender with palpation. Bowel sounds slightly hyperacti ve. : No Barrett catheter in place. EXTREMITIES: No significant pitting edema. LABORATORY DATA: Notable studies: White blood cell count 8, hemoglobin 11, platelets 181. Sodium 1 33, potassium 4.1, chloride 101, bicarb 25, glucose 113, lipase within normal limits at 2:55 at the t alvaro of discharge. This was elevated when he was first evaluated in the emergency room. GI PCR panel negative. CT scan head without contrast: Normal brain. No intracranial hemorrhage or swelling. Abdomen CT: Pancolonic and distal ileum edema and inflammation, query infectious etiology such as Cl ostridium difficile colitis. No evidence of arterial or venous occlusion. Diffuse edema and trace f luid in the pelvis. No abscess identified. DISCHARGE MEDICATIONS: 1. Sensipar 30 mg daily. 2. Labetalol 600 mg twice a day. 3. Reglan 5 mg twice a day. 4. Minoxidil 10 mg twice a day. 5. Prescriptions were sent today for labetalol and minoxidil for a 1-month supply with 1 refill. DISCHARGE INSTRUCTIONS: I recommend continuing his hemodialysis as scheduled on Friday, Friday, a friday. Otherwise, should any abdominal symptoms recur, then reassessment in the emergency room w ould be appropriate. 35 minutes time dedicated to discharge efforts. /[id number]/MODL
== END 2017-11-08 11:13 | disposition home or self-care (01) | DRG 199 ==
LOC: EDUNIT# → F2N 20:05
PROVIDERS: ADMIT Family Medicine; ATTEND Family Medicine
PROC: 5A1D70Z Performance of Urinary Filtration, Intermittent, Less than 6 Hours Per Day (ICD-10-PCS; principal; 2017-11-07)
DX: I16.1 Hypertensive emergency (principal); I12.0 Hypertensive chronic kidney disease with stage 5 chronic kidney disease or end stage renal disease; N18.6 End stage renal disease; Z99.2 Dependence on renal dialysis; Z59.0 Homelessness; Z23 Encounter for immunization
CPT/HCPCS: 82435-PO; 82565-PO; 82947-PO; 84132-PO; 84295-PO; 84520-PO; 85014-PO; 96365; G0009; J2405; J2765; J3010; Q9967

== ENCOUNTER 2018-01-25 22:36 | Emergency (ER) | payer MEDICAID ==
[2018-01-25] MEDS: LABETALOL HCL 5 MG/ML 20 ML MDV IVP ONE (22:58)
[2018-01-25 23:03] LABS: PLATELET COUNT 105 10^3/uL (150-400)
[2018-01-25] MEDS: ONDANSETRON 4 MG/2 ML VIAL IVP ONE (23:23)
--- NOTE | 2018-01-25 23:32 | EDPHY ---
H & P Stated Complaint: abd cramping Time Seen by Provider: 01/25/18 22:39 HPI/ROS: HPI The patient presents with abdominal pain which has been present throughout the course of today which is crampy and in her lower abdomen and has been intermittent since it started. It feels like the same pain which brought him into the emergency department and required hospital admission several weeks ago. At that time he had a CT scan showing colitis with a normal GI PCR panel. He has had about 2 loose stools today and vomited when he tried to take his evening dose of labetalol. He does not have any chest pain or shortness of breath. He has Friday hemodialysis and missed his Friday dialysis.. REVIEW OF SYSTEMS 10 systems were reviewed and negative with the exception of the elements mentioned in the history of present illness. PMHx: End-stage renal disease, on hemodialysis Friday for the last 1 year, hypertension Soc Hx: Homeless, sleeps on the street, gets dialysis at [facility] in [place] PHYSICAL General Appearance: Alert, no distress Eyes: Pupils equal and round no pallor or injection ENT, Mouth: Mucous membranes moist Respiratory: There are no retractions, lungs are clear to auscultation Cardiovascular: Regular rate and rhythm Gastrointestinal: Abdomen is soft and he has mild tenderness in his lower quadrants, no masses, bowel sounds normal Neurological: A&O, moves all extremities Skin: Warm and dry, no rashes Musculoskeletal: Neck is supple non tender Extremities: symmetrical, full range of motion Psychiatric: Patient is oriented X 3, there is no agitation Source: Patient, EMS, Old records Exam Limitations: No limitations - Personal History Current Tetanus Diphtheria and Acellular Pertussis (TDAP): Unsure - Medical/Surgical History Hx Asthma: No Hx Chronic Respiratory Disease: No Hx Diabetes: No Hx Cardiac Disease: No Hx Renal Disease: Yes Hx Cirrhosis: No Hx Alcoholism: No Hx HIV/AIDS: No Hx Splenectomy or Spleen Trauma: No Other PMH: HTN, ESRD, eye surgery, dialysis, wisdom teeth out - Social History Smoking Status: Light smoker Constitutional: Initial Vital Signs Temperature (C) 36.7 C 01/25/18 22:44 Heart Rate 95 01/25/18 22:44 Respiratory Rate 20 01/25/18 22:44 Blood Pressure 214/151 H 01/25/18 22:44 O2 Sat (%) 98 01/25/18 22:44 O2 Delivery Mode Room Air Allergies/Adverse Reactions: No Known Allergies Allergy (Verified 01/25/18 22:44) Home Medications: Medication Instructions Recorded Labetalol HCl [Trandate 200 mg (*)] 600 mg PO BID #180 tab 11/08/17 Medical Decision Making Differential Diagnosis: This is a 27-year-old male with hypertension, end-stage renal disease due to this on Friday hemodialysis, missed his most recent dialysis, now here with abdominal pain with an episode of diarrhea. On exam, he is tender in his lower quadrants. Also his blood pressure is quite elevated. He was admitted to the hospital several months ago for this same pain. He had a CT scan showing marshall colitis. He had a normal GI PCR test. He says he often gets this pain when he misses dialysis. Is in the emergency department, labs were checked. He did not have a leukocytosis, he has stable anemia. His BUN and creatinine are elevated but he is not hyperkalemic or acidotic requiring acute dialysis. He was observed for several hours. He was given labetalol IV and eventually was able to tolerate his p.o. Dose without difficulty. He had serial abdominal exams which improved over time. Upon discharge his abdominal exam was entirely benign with no tenderness. I explained to him that he will need to attend dialysis later today and he is able to do so. He will be discharged from the emergency department. Differential diagnosis includes colitis, appendicitis, diverticulitis. - Data Points Laboratory Results: Laboratory Results 01/25/18 22:58 01/25/18 22:58 01/25/18 01/25/18 22:58 22:58 WBC 7.37 10^3/uL 10^3/uL (3.80-9.50) RBC 4.03 10^6/uL L 10^6/uL (4.40-6.38) Hgb 11.5 g/dL L g/dL (13.7-17.5) Hct 31.9 % L % (40.0-51.0) MCV 79.2 fL L fL (81.5-99.8) MCH 28.5 pg pg (27.9-34.1) MCHC 36.1 g/dL g/dL (32.4-36.7) RDW 15.4 % H % (11.5-15.2) Plt Count 105 10^3/uL L 10^3/uL (150-400) MPV 9.9 fL fL (8.7-11.7) Neut % (Auto) 78.7 % H % (39.3-74.2) Lymph % (Auto) 13.7 % L % (15.0-45.0) [place] % (Auto) 4.5 % % (4.5-13.0) Eos % (Auto) 2.3 % % (0.6-7.6) Baso % (Auto) 0.5 % % (0.3-1.7) Nucleat RBC Rel Count 0.0 % % (0.0-0.2) Absolute Neuts (auto) 5.80 10^3/uL 10^3/uL (1.70-6.50) Absolute Lymphs (auto) 1.01 10^3/uL 10^3/uL (1.00-3.00) Absolute Monos (auto) 0.33 10^3/uL 10^3/uL (0.30-0.80) Absolute Eos (auto) 0.17 10^3/uL 10^3/uL (0.03-0.40) Absolute Basos (auto) 0.04 10^3/uL 10^3/uL (0.02-0.10) Absolute Nucleated RBC 0.00 10^3/uL 10^3/uL (0-0.01) Immature Gran % 0.3 % % (0.0-1.1) Immature Gran # 0.02 10^3/uL 10^3/uL (0.00-0.10) Sodium 138 mEq/L mEq/L (135-145) Potassium 3.7 mEq/L mEq/L (3.3-5.0) Chloride 102 mEq/L mEq/L (97-110) Carbon Dioxide 19 mEq/l L mEq/l (22-31) Anion Gap 17 mEq/L H mEq/L (8-16) BUN 66 mg/dL H mg/dL (7-23) Creatinine 7.9 mg/dL H* mg/dL (0.7-1.3) Estimated GFR 8 Glucose 99 mg/dL mg/dL (70-100) Calcium 8.2 mg/dL L mg/dL (8.5-10.4) Total Bilirubin 1.3 mg/dL mg/dL (0.1-1.4) AST 25 IU/L IU/L (17-59) ALT 30 IU/L IU/L (21-72) Alkaline Phosphatase 87 IU/L IU/L (38-126) Total Protein 6.7 g/dL g/dL (6.3-8.2) Albumin 3.9 g/dL g/dL (3.5-5.0) Lipase 168 IU/L IU/L (23-300) Medications Given: Discontinued Medications Labetalol HCl (Trandate Injection) 20 mg IVP EDNOW ONE Stop: 01/25/18 22:47 Last Admin: 01/25/18 22:58 Dose: 20 mg Labetalol HCl (Trandate) 600 mg PO EDNOW ONE Stop: 01/25/18 23:18 Last Admin: 01/25/18 23:50 Dose: Not Given Labetalol HCl (Trandate) 600 mg PO EDNOW ONE Stop: 01/25/18 23:31 Last Admin: 01/25/18 23:49 Dose: 600 mg Labetalol HCl (Trandate Injection) 20 mg IVP EDNOW ONE Stop: 01/26/18 00:42 Last Admin: 01/26/18 00:57 Dose: 20 mg Ondansetron HCl (Zofran) 4 mg IVP EDNOW ONE Stop: 01/25/18 23:17 Last Admin: 01/25/18 23:23 Dose: 4 mg Departure - Departure Disposition: Home, Routine, Self-Care Clinical Impression: ESRD needing dialysis Hypertension Qualifiers: Hypertension type: unspecified Qualified Code(s): I10 - Essential (primary) hypertension Abdominal pain Qualifiers: Abdominal location: generalized Qualified Code(s): R10.84 - Generalized abdominal pain Condition: Good Instructions: Chronic Hypertension (ED) Additional Instructions: Please follow-up for dialysis tomorrow. Return to the emergency department if your worse in any way. Referrals: [facility],. [Clinic] - As per Instructions
[2018-01-25] MEDS: LABETALOL HCL 200 MG TAB PO ONE (23:49)
[2018-01-25] MEDS: LABETALOL HCL 100 MG TAB PO ONE (23:50)
[2018-01-26] MEDS: LABETALOL HCL 5 MG/ML 20 ML MDV IVP ONE (00:57)
[2018-01-26 02:06] VITALS: BP 199/112
== END 2018-01-26 01:55 | disposition home or self-care (01) ==
LOC: EDUNIT#
DX: R10.9 Unspecified abdominal pain (principal); I12.0 Hypertensive chronic kidney disease with stage 5 chronic kidney disease or end stage renal disease; N18.6 End stage renal disease; Z99.2 Dependence on renal dialysis; Z59.0 Homelessness
CPT/HCPCS: 96374; J2405

== ENCOUNTER 2018-02-04 18:15 | Inpatient (IN) | payer MEDICAID ==
--- NOTE | 2018-02-04 18:24 | EDPHY ---
H & P Time Seen by Provider: 02/04/18 18:24 HPI/ROS: CHIEF COMPLAINT: Headache vomiting and hypertension HISTORY OF PRESENT ILLNESS: 27-year-old man on dialysis transported by EMS for hypertension and headache. Patient says he vomits"every day"and is most be on labetalol orally but can't keep it down over the past 48 hr. He has right- sided severe headache associated with hypertension, transported from dialysis with persistent vomiting. Says this identical to multiple episodes which he has been seen for in the past in the emergency department. He has never had intracranial hemorrhage. Symptoms severe, not better with any oral medication. Not associated with abdominal pain or visual symptoms. REVIEW OF SYSTEMS: Eye: no change in vision ENT: no sore throat Cardiac: no chest pain or syncope Pulmonary: no cough or SOB Abdomen: HPI Musculoskeletal: No neck stiffness Skin: no rash Neuro: HPI Constitutional: no fever : no urinary symptoms A comprehensive 10 point review of systems is otherwise negative aside from elements mentioned in the history of present illness. PAST MEDICAL HISTORY: End-stage renal disease, Dialysis and hypertension Social history: Tobacco smoker General Appearance: Alert and conversant, cooperative. Eyes: No scleral icterus. Pupils equal round reactive flight extraocular motion intact. ENT, Mouth: Normal mucous membranes. Respiratory: Normal respiratory effort, breath sounds equal, lungs are clear to auscultation. Cardiovascular: Regular rate and rhythm. Gastrointestinal: Abdomen is soft and non tender. Neurological: Alert, face symmetric, normal motor and sensory in extremities. The patient does have normal motion all 4 extremities, fluent speech, is cooperative with normal level of consciousness. Skin: Warm and dry, no rashes. Musculoskeletal: No neck stiffness. Psychiatric: Not agitated. Emergency Department course/MDM: Start with 40 mg IV labetalol, CBC and chemistry, Zofran 4 mg IV, noncontrast head CT. 255/169, repeat labetalol 80mg IV. 1919: Negative head CT per Dr. Craig. 229/152, labetalol 160mg IV. 1950: 221/151, still has nausea, plan for admission. 1957: Nicardipine drip, discussed with pharmacy. Admission for control of symptoms including persistent vomiting headache and hypertension. Smoking Status: Light smoker Constitutional: Initial Vital Signs Temperature (C) 37.4 C 02/04/18 18:21 Heart Rate 104 H 02/04/18 18:21 Respiratory Rate 16 02/04/18 18:21 Blood Pressure 232/177 H 02/04/18 18:21 O2 Sat (%) 97 02/04/18 18:21 O2 Delivery Mode Room Air Allergies/Adverse Reactions: No Known Allergies Allergy (Verified 02/04/18 18:21) Home Medications: Medication Instructions Recorded Labetalol HCl 600 mg PO BID 02/04/18 Medical Decision Making - Diagnostics Imaging Results: Imaging Impressions Head CT 02/04/18 18:30 Impression: No evidence of acute intracranial abnormality. Mucous retention cyst left maxillary sinus. Results called and discussed with Dr. Conrado Garcia at 02/04/2018 19:22. Imaging: Discussed imaging studies w/ order desk caller Radiologist Differential Diagnosis: Differential diagnosis considered for headache including but not limited to subarachnoid hemorrhage, migraine headache, tension headache and infectious causes such as meningitis, pharyngitis and sinusitis. Consult/Admit Bed Type: [place] [address] Critical Care Time: Critical care time spent by me, Dr. Garcia, exclusively with the care of this patient was 45 minutes, exclusive of PA or INSPECTOR FILTERS time and exclusive of separate procedures. The organ system at risk was cardiovascular and I ordered IV labetalol, IV nicardipine, serial examinations to stabilize the patient and prevent worsening of the patient's condition. - Data Points Laboratory Results: Laboratory Results 02/04/18 18:20 02/04/18 18:20 02/04/18 02/04/18 18:20 18:20 WBC 9.98 10^3/uL H 10^3/uL (3.80-9.50) RBC 4.09 10^6/uL L 10^6/uL (4.40-6.38) Hgb 11.7 g/dL L g/dL (13.7-17.5) Hct 32.3 % L % (40.0-51.0) MCV 79.0 fL L fL (81.5-99.8) MCH 28.6 pg pg (27.9-34.1) MCHC 36.2 g/dL g/dL (32.4-36.7) RDW 15.8 % H % (11.5-15.2) Plt Count 151 10^3/uL 10^3/uL (150-400) MPV 10.1 fL fL (8.7-11.7) Neut % (Auto) 75.4 % H % (39.3-74.2) Lymph % (Auto) 15.6 % % (15.0-45.0) Allen % (Auto) 6.8 % % (4.5-13.0) Eos % (Auto) 1.1 % % (0.6-7.6) Baso % (Auto) 0.7 % % (0.3-1.7) Nucleat RBC Rel Count 0.0 % % (0.0-0.2) Absolute Neuts (auto) 7.52 10^3/uL H 10^3/uL (1.70-6.50) Absolute Lymphs (auto) 1.56 10^3/uL 10^3/uL (1.00-3.00) Absolute Monos (auto) 0.68 10^3/uL 10^3/uL (0.30-0.80) Absolute Eos (auto) 0.11 10^3/uL 10^3/uL (0.03-0.40) Absolute Basos (auto) 0.07 10^3/uL 10^3/uL (0.02-0.10) Absolute Nucleated RBC 0.00 10^3/uL 10^3/uL (0-0.01) Immature Gran % 0.4 % % (0.0-1.1) Immature Gran # 0.04 10^3/uL 10^3/uL (0.00-0.10) Sodium 137 mEq/L mEq/L (135-145) Potassium 3.0 mEq/L L mEq/L (3.3-5.0) Chloride 97 mEq/L mEq/L (97-110) Carbon Dioxide 30 mEq/l mEq/l (22-31) Anion Gap 10 mEq/L mEq/L (8-16) BUN 14 mg/dL mg/dL (7-23) Creatinine 2.8 mg/dL H mg/dL (0.7-1.3) Estimated GFR 28 Glucose 97 mg/dL mg/dL (70-100) Calcium 8.6 mg/dL mg/dL (8.5-10.4) Medications Given: Discontinued Medications Nicardipine/Sodium Chloride (Cardene 0.1 Mg/Ml (Premix)) 200 mls @ 0 mls/hr IV EDNOW ONE; Titrate PRN Reason: Protocol Stop: 02/04/18 19:59 Last Admin: 02/04/18 20:16 Dose: 200 mls Labetalol HCl (Trandate Injection) 40 mg IVP EDNOW ONE Stop: 02/04/18 18:31 Last Admin: 02/04/18 18:48 Dose: 40 mg Labetalol HCl (Trandate Injection) 80 mg IVP EDNOW ONE Stop: 02/04/18 19:07 Last Admin: 02/04/18 19:11 Dose: 80 mg Labetalol HCl (Trandate Injection) 160 mg IVP EDNOW ONE Stop: 02/04/18 19:25 Last Admin: 02/04/18 19:31 Dose: 160 mg Ondansetron HCl (Zofran) 4 mg IVP EDNOW ONE Stop: 02/04/18 18:31 Last Admin: 02/04/18 18:46 Dose: 4 mg Departure - Departure Disposition: [facility] Clinical Impression: Hypertension Qualifiers: Hypertension type: unspecified Qualified Code(s): I10 - Essential (primary) hypertension Condition: Fair
[2018-02-04] MEDS ORDERED: LABETALOL HCL 5 MG/ML 20 ML MDV IVP ONE ×3 (18:30→19:24)
[2018-02-04] MEDS ORDERED: ONDANSETRON 4 MG/2 ML VIAL IVP ONE (18:30)
[2018-02-04 18:48] LABS: PLATELET COUNT 151 10^3/uL (150-400)
[2018-02-04] MEDS ORDERED: niCARdipine/NACL 200 ML IV ONE (19:58)
[2018-02-04] MEDS ORDERED: oxyCODONE IR 5 MG TAB PO PRN (21:43)
[2018-02-04] MEDS ORDERED: ONDANSETRON DISINTEGRATING 4 MG TAB PO PRN (21:43)
[2018-02-04] MEDS ORDERED: ALBUTEROL 3 ML DEYVIAL IH PRN (21:43)
[2018-02-04] MEDS ORDERED: LORazepam 2 MG/ML INJ IVP PRN (21:43)
[2018-02-04] MEDS ORDERED: LORazepam 0.5 MG TAB PO PRN (21:43)
[2018-02-04] MEDS ORDERED: HYDROCODONE/APAP 5/325 TAB PO PRN (21:43)
[2018-02-04] MEDS ORDERED: ACETAMINOPHEN 325 MG TAB PO PRN (21:43)
[2018-02-04] MEDS ORDERED: ONDANSETRON 4 MG/2 ML VIAL IVP PRN (21:43)
[2018-02-04] MEDS ORDERED: PROMETHAZINE HCL 25 MG/ML INJ IVP PRN (21:43)
[2018-02-04] MEDS ORDERED: HYDROmorphONE/DILAUDID 1 MG/ML INJ IVP PRN (21:43)
[2018-02-04] MEDS: HEPARIN 5,000 UNIT/0.5 ML INJ SC SCH (22:31)
--- NOTE | 2018-02-05 00:40 | PDGENHP ---
History and Physical - Chief Complaint headache - History of Present Illness Patient is a 27 year old ESRD patient on chronic HD who presents with n/v and inability to take his BP medications with now very elevated bp and headache. Patient states that he vomits daily and that it is worse with HD and due to that for the last 2 days he has been unable to take his labetalol. He has had issues with very elevated bp in the past off of his bp meds. He has never had intracranial bleed in the past. He notes that currently his head hurts and he generally feels poorly and as if he does not want to move much, he feels he needs to not talk much so that he can stay calm. He denies chest pain, he denies and numbness or weakness or changes in his vision. 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 benign essential HTN - Surgical History Reports: no pertinent surgical hx Additional surgical history: left arm AVF. - Family History Positive for: hypertension. Negative for: diabetes type II - Social History Smoking Status: Light smoker Alcohol Use: Occasionally Drug Use: None Review of Systems Review of Systems: ROS: 10pt was reviewed & negative except for what was stated in HPI & below Physical Exam Physical Exam: Temp Pulse Resp BP Pulse Ox 36.9 C 94 17 163/72 H 95 02/04/18 21:53 02/05/18 00:00 02/05/18 00:00 02/05/18 00:00 02/05/18 00:00 Constitutional: chronically ill appearing, uncomfortable Eyes: PERRL, anicteric sclera Ears, Nose, Mouth, Throat: moist mucous membranes, hearing normal Cardiovascular: regular rate and rhythym, no murmur, rub, or gallop, No edema Respiratory: no respiratory distress, no rales or rhonchi Gastrointestinal: normoactive bowel sounds, soft, non-tender abdomen Genitourinary: no bladder fullness Skin: warm, normal color Musculoskeletal: full muscle strength Neurologic: AAOx3 Psychiatric: interacting appropriately, anxious Lab Data & Imaging Review 02/04/18 18:20 02/04/18 18:20 WBC 9.98 10^3/uL (3.80-9.50) H 02/04/18 18:20 RBC 4.09 10^6/uL (4.40-6.38) L 02/04/18 18:20 Hgb 11.7 g/dL (13.7-17.5) L 02/04/18 18:20 Hct 32.3 % (40.0-51.0) L 02/04/18 18:20 MCV 79.0 fL (81.5-99.8) L 02/04/18 18:20 MCH 28.6 pg (27.9-34.1) 02/04/18 18:20 MCHC 36.2 g/dL (32.4-36.7) 02/04/18 18:20 RDW 15.8 % (11.5-15.2) H 02/04/18 18:20 Plt Count 151 10^3/uL (150-400) 02/04/18 18:20 MPV 10.1 fL (8.7-11.7) 02/04/18 18:20 Neut % (Auto) 75.4 % (39.3-74.2) H 02/04/18 18:20 Lymph % (Auto) 15.6 % (15.0-45.0) 02/04/18 18:20 [place] % (Auto) 6.8 % (4.5-13.0) 02/04/18 18:20 Eos % (Auto) 1.1 % (0.6-7.6) 02/04/18 18:20 Baso % (Auto) 0.7 % (0.3-1.7) 02/04/18 18:20 Nucleat RBC Rel Count 0.0 % (0.0-0.2) 02/04/18 18:20 Absolute Neuts (auto) 7.52 10^3/uL (1.70-6.50) H 02/04/18 18:20 Absolute Lymphs (auto) 1.56 10^3/uL (1.00-3.00) 02/04/18 18:20 Absolute Monos (auto) 0.68 10^3/uL (0.30-0.80) 02/04/18 18:20 Absolute Eos (auto) 0.11 10^3/uL (0.03-0.40) 02/04/18 18:20 Absolute Basos (auto) 0.07 10^3/uL (0.02-0.10) 02/04/18 18:20 Absolute Nucleated RBC 0.00 10^3/uL (0-0.01) 02/04/18 18:20 Immature Gran % 0.4 % (0.0-1.1) 02/04/18 18:20 Immature Gran # 0.04 10^3/uL (0.00-0.10) 02/04/18 18:20 Sodium 137 mEq/L (135-145) 02/04/18 18:20 Potassium 3.0 mEq/L (3.3-5.0) L 02/04/18 18:20 Chloride 97 mEq/L (97-110) 02/04/18 18:20 Carbon Dioxide 30 mEq/l (22-31) 02/04/18 18:20 Anion Gap 10 mEq/L (8-16) 02/04/18 18:20 BUN 14 mg/dL (7-23) 02/04/18 18:20 Creatinine 2.8 mg/dL (0.7-1.3) H 02/04/18 18:20 Estimated GFR 28 02/04/18 18:20 Glucose 97 mg/dL (70-100) 02/04/18 18:20 Calcium 8.6 mg/dL (8.5-10.4) 02/04/18 18:20 Visualized and Interpreted imaging results: Yes Interpretation: head CT negative for bleed Assessment & Plan Assessment: Hypertension (Acute) 27 yo M with hx of ESRD on chronic HD as well as HTN presenting off of his BP meds x 2 days with hypertensive urgency # hypertensive urgency: not responding to labetalol in the ER and as high as SBP 250 initially. Started on cardene gtt with goal to decrease SBP by no more than 20%--per prior records he does often run in the systolics 200 at HD so this is not too far off of his baseline. Will resume home medications in the am. # ESRD: on chronic HD which was performed today, lytes are wnl, did alert renal that patient is here and that if he remains in house will likely require HD on Friday. # headache: due to problem 1, no intracranial bleed on CT, monitoring, if sxs worsen could consider repeat head CT # hypokalemia: s/p HD today, given ESRD will not replete at 3.0 # IP status, high risk presenting issue requiring ICU level care Patient new to my care. Old records reviewed and summarized as above. > 35 min of critical care time spent with this patient in evaluation of imaging and labs , coordination with ER and ICU staff and discussion with specialists.
[2018-02-05 05:05] LABS: PLATELET COUNT 140 10^3/uL (150-400)
[2018-02-05] MEDS: HEPARIN 5,000 UNIT/0.5 ML INJ SC SCH ×3 (06:33→21:22)
[2018-02-05] MEDS: niCARdipine/NACL 200 ML IV SCH ×5 (06:33→23:09)
[2018-02-05] MEDS ORDERED: LABETALOL HCL 200 MG TAB PO SCH ×2 (09:00→21:00)
--- NOTE | 2018-02-05 09:41 | GCON ---
NEPHROLOGY CONSULTATION DATE OF CONSULTATION: 02/05/2018 REASON FOR CONSULTATION: Malignant hypertension, end-stage renal disease. HISTORY OF PRESENT ILLNESS: This is a pleasant 27-year-old homeless male with past medical historysi gnificant for end-stage renal disease who now presents with symptomatic severe hypertension. History is obtained from the patient, the medical record, as well as his attending humanities and languages professor, Dr. Adonis sheldon. The patient dialyzes at the [facility] on a Friday, Friday, Friday sched ule. The patient has a history of focal segmental glomerular sclerosis. He also has severe hypertension. He progressed to end-stage renal disease approximately 1 year ago. At that time, he was in [place], [place]. The patient moved to the [place] area. Since that time, he has been on dialysis at [facility]. According to Dr. Robles, the patient's dialysis has gone relatively well. Rela ting to this, his labs have been okay, and he has been relatively compliant. He has a left upper ext remity fistula that has been working well. The patient's main issues have been psychosocial and related to his hypertension. With regard to the latter, his blood pressure had finally come under control on labetalol and high dose minoxidil. Unf ortunately, the patient does not feel good on the minoxidil. Recently, he stopped taking this. Rela ting to this, the patient presented with severe hypertension, notably 215/157. With this, he had a h eadache, nausea, and vomiting. The patient is now on a Cardene drip with target blood pressure is 17 0 to 190 systolic. He is feeling much improved this morning. The patient did receive his dialysis y , and his serum chemistries look okay. As related to the above issues, we are asked by the hospitalist service to assist with patient's luis daniel l diagnosis and management. PAST MEDICAL HISTORY: 1. End-stage renal disease, secondary to FSGS. 2. Severe hypertension. 3. Homeless status. PAST SURGICAL HISTORY: Left arm AV fistula. MEDICATIONS: Prior to admission: Minoxidil 20 mg b.i.d., which the patient discontinued several day s ago, labetalol 600 mg b.i.d. FAMILY HISTORY: Positive for hypertension. SOCIAL HISTORY: The patient has transient status here in [place]. He is originally from [place]. Ariana muller has also lived in different places in the [facility]. He may have had some recent legal issues. He zacarias s use marijuana. He does not use alcohol. He does smoke cigarettes. REVIEW OF SYSTEMS: The patient denies fevers, chills, or sweats. He has had a very poor appetite. He has had weight loss. He denies a current headache. He has not had visual changes, rhinitis, or s ore throat. Denies cough, shortness of breath, or chest pain. He denies abdominal pain. He did hav e nausea yesterday, but it is better. His fistula has been working well. He makes some urine. He d oes not have dysuria. Denies edema. He denies neuropathy. He does not have a history of diabetes o r thyroid disease. PHYSICAL EXAM: GENERAL: At the time of exam, the patient is appropriate and alert. VITAL SIGNS: T emperature afebrile, pulse 113, blood pressure 157/88. HEENT: Eyes: Sclerae clear. Oropharynx mulugeta ar. NECK: No lymphadenopathy or thyromegaly. LUNGS: Clear auscultation bilaterally. CARDIOVASCUL AR: Tachycardic without gallops or rubs. ABDOMEN: Normoactive bowel sounds. Nontender. No organo megaly. /RECTAL: Deferred. EXTREMITIES: No lower extremity edema. The patient's fistula site l ooks good and has a bruit. INTEGUMENT: Generally clear. NEURO: No focal findings. LABORATORY DATA: Sodium 136, potassium 3.4, bicarb 26, creatinine 4.1. White count 8.5, hematocrit 33.5, platelet count 140. IMPRESSION/PLAN: 1. Malignant hypertension. The patient has a history of severe hypertension. He has had significan t issues with medication side effects. It is unclear to me whether the medication side affects are s imply the appropriate lowering of his blood pressure or other side effects. The patient is now impro jenni with a blood pressure of 170 on a Cardene drip. At this point, I would like to see if we can swi tch him to a Catapres patch and potentially a calcium channel gonzalez. I will start by decreasing hi s labetalol and adding a Catapres patch. The patient has expressed consent to this and I also ran th is by his attending humanities and languages professor. We will continue to titrate his his Cardene drip according to this . Again, a systolic blood pressure of 170 may be most appropriate for him symptomatically. 2. End-stage renal disease. The patient will dialyze tomorrow. There are no indications for dialys is at present. He does not appear volume overloaded. 3. Psychosocial. This is a very challenging situation. The patient would like to get back to [facility]. He does not have regular dialysis schedule there; however, getting him into a situation with jose martin e sort of social support, such as family would be helpful. 4. Anemia. This is stable. Thank you for allowing us to precipitate in this gentleman's care. We will continue to follow him cl osely with you. /[id number]/MODL
[2018-02-05] MEDS: LABETALOL HCL 200 MG TAB PO SCH ×2 (10:18→21:22)
--- NOTE | 2018-02-05 11:09 | ASMTCASEMG ---
Living Arrangements What is your living Answers: Alone arrangement? Who do you live with? Type Of Residence What kind of residence do Answers: Homeless you live in? Type of Residence Facility Name Notes: Patient traveled here from [place]. He is originaaly from [place]. Patient's mother lives in [place], [place]. Discharge Plan Comments Coordination Status Comments Notes: Patient is a 27yo single male with a hx of ERSD on chronic HD as well as HTN presenting off of his BP meds x 2days with hypertensive urgency. Patient is homeless with past medical history significant for end stage renal disease. The patient dialyzes at the [facility] D[facility] unit on a Friday, Friday, Friday schedule. No therapies ordered at this time. Will check with patient to see if he wants his mother notified. D/C plan TBD. JUNIOR will follow. Date Signed: 02/05/2018 11:09 AM Electronically Signed By:Emily Chin LCSW
--- NOTE | 2018-02-05 11:29 | HOSPPROG ---
Hospitalist Progress Note Assessment/Plan: Hypertension (Acute) 27 yo M with hx of ESRD on chronic HD as well as HTN presenting off of his BP meds x 2 days with hypertensive urgency # hypertensive urgency - Did not respond to labetalol in the ER and as high as SBP 250 initially - Started on cardene gtt with goal to decrease SBP by no more than 20%--per prior records he does often run in the systolics 200 at HD so this is not too far off of his baseline. - Per Nephrology, starting Clonidine patch today as well as Labetalol 200 mg BID , titrate off of Cardene gtt # ESRD - on chronic HD which was performed yesterday - HD tomorrow # Headache - due to problem 1 - No intracranial bleed on CT, monitoring - If sxs worsen could consider repeat head CT # hypokalemia - s/p HD yesterday, given ESRD will not replete at 3.0 # IP status, high risk presenting issue requiring ICU level care Subjective: Patient reports he feels much improved this morning Objective: Vital Signs Temp Pulse Resp BP Pulse Ox 36.9 C 112 H 17 193/101 H 94 02/04/18 21:53 02/05/18 10:18 02/05/18 07:00 02/05/18 10:18 02/05/18 07:00 Laboratory Results 02/05/18 04:45 02/05/18 04:45 02/04/18 02/05/18 02/06/18 05:59 05:59 05:59 Intake Total 1345 Output Total 350 Balance 995 - Physical Exam Constitutional: no apparent distress Eyes: PERRL Ears, Nose, Mouth, Throat: moist mucous membranes Cardiovascular: regular rate and rhythym Respiratory: clear to auscultation Gastrointestinal: soft, non-tender abdomen Genitourinary: no bladder tenderness Skin: warm Musculoskeletal: no muscle tenderness Neurologic: AAOx3 Psychiatric: interacting appropriately ICD10 Worksheet Patient Problems: Problems Problem Status Onset Hypertension Acute Acute pancreatitis Acute Colitis Acute ESRD needing dialysis Acute Hypertensive encephalopathy Acute Renal failure Acute
--- NOTE | 2018-02-05 12:02 | PDMN ---
Medical Necessity Medical necessity: Pt meets IP criteria per MD & MCG M-197; est los >2 mn for eval/tx of hypertensive urgency w/initial SBP of 250 (no response to IV Labetalol in ER), headache, N/V & inability to tolerate PO; requiring close ICU monitoring, Anabelleene remy & Nephrology consult; hx ESRD on dialysis; per H&P & order 02/04/18
[2018-02-05] MEDS ORDERED: LABETALOL HCL 200 MG TAB PO ONE (16:10)
[2018-02-06] MEDS: niCARdipine/NACL 200 ML IV SCH (05:09)
[2018-02-06 05:27] LABS: PLATELET COUNT 143 10^3/uL (150-400)
[2018-02-06] MEDS: HEPARIN 5,000 UNIT/0.5 ML INJ SC SCH ×3 (06:48→21:36)
[2018-02-06] MEDS: LABETALOL HCL 200 MG TAB PO SCH ×2 (09:38→21:34)
[2018-02-06] MEDS ORDERED: LABETALOL HCL 200 MG TAB PO ONE (11:35)
[2018-02-06] MEDS ORDERED: LABETALOL HCL 200 MG TAB PO SCH (11:35)
--- NOTE | 2018-02-06 11:38 | HOSPPROG ---
Hospitalist Progress Note Assessment/Plan: Hypertension (Acute) 27 yo M with hx of ESRD on chronic HD as well as HTN presenting off of his BP meds x 2 days with hypertensive urgency # hypertensive urgency - Did not respond to labetalol in the ER and as high as SBP 250 initially - Started on cardene gtt with goal to decrease SBP by no more than 20%--per prior records he does often run in the systolics 200 at HD so this is not too far off of his baseline. - Started on Clonidine patch yesterday as well as Labetalol 200 mg BID, titrated off of Cardene gtt this morning - Will increase dose of Labetalol to home dose 600 mg BID, if BP not controlled will add CCB Amlodipine # ESRD - Nephrology consulted - On chronic HD which was performed this morning - HD MWF or per Renal # Headache - due to problem 1 - No intracranial bleed on CT, monitoring - If sxs worsen could consider repeat head CT # hypokalemia - s/p HD this morning, given ESRD will not replete >3.0 # IP status, high risk presenting issue requiring ICU level care Subjective: Patient had episode of nausea with breakfast this morning which has since resolved Objective: Vital Signs Temp Pulse Resp BP Pulse Ox 37.0 C 95 20 181/119 H 97 02/05/18 20:00 02/06/18 10:00 02/06/18 10:00 02/06/18 10:00 02/06/18 10:00 Laboratory Results 02/06/18 05:20 02/06/18 05:20 02/05/18 02/06/18 02/07/18 05:59 05:59 05:59 Intake Total 1345 1414 Output Total 350 750 Balance 995 664 - Physical Exam Constitutional: no apparent distress Eyes: PERRL Ears, Nose, Mouth, Throat: moist mucous membranes Cardiovascular: regular rate and rhythym Respiratory: no respiratory distress, clear to auscultation Gastrointestinal: soft, non-tender abdomen Genitourinary: no bladder tenderness Skin: warm Neurologic: AAOx3 Psychiatric: interacting appropriately, flat affect ICD10 Worksheet Patient Problems: Problems Problem Status Onset Hypertension Acute Acute pancreatitis Acute Colitis Acute ESRD needing dialysis Acute Hypertensive encephalopathy Acute Renal failure Acute
--- NOTE | 2018-02-06 15:05 | SOAPPROG ---
SOAP Progress Note Assessment/Plan: Assessment: 1. htn: off cardene, labetalol increased and amlodipine added today. Would not make add'l changes today, observe bp for now. Pt states sbp has frequently been near 200 for years, even when on minoxidil. Vol status looks ok. 2. Esrd: dialyzed today on typical [facility] schedule. 3. dispo: pt hoping to get back to [place], unclear how realistic this goal is. Plan: 02/06/18 15:01 Subjective: s/p hd earlier today. BYNUM has mainly resolved. Objective: Vital Signs Temp Pulse Resp BP Pulse Ox 36.6 C 101 H 20 187/110 H 97 02/06/18 14:00 02/06/18 14:00 02/06/18 14:00 02/06/18 14:00 02/06/18 14:00 Laboratory Results 02/06/18 05:20 02/06/18 05:20 02/05/18 02/06/18 02/07/18 05:59 05:59 05:59 Intake Total 1345 1414 Output Total 350 750 Balance 995 664 Physical Exam - Physical Exam General Appearance: no apparent distress Respiratory: lungs clear Cardiac/Chest: regular rate, rhythm Abdomen: non-tender, soft Extremities: pedal edema (none), other (+patent LUE avf) ICD10 Worksheet Patient Problems: Problems Problem Status Onset Hypertension Acute Acute pancreatitis Acute Colitis Acute ESRD needing dialysis Acute Hypertensive encephalopathy Acute Renal failure Acute
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
[2018-02-07] MEDS: HEPARIN 5,000 UNIT/0.5 ML INJ SC SCH ×3 (06:28→21:50)
[2018-02-07 06:57] LABS: PLATELET COUNT 144 10^3/uL (150-400)
[2018-02-07] MEDS: LABETALOL HCL 200 MG TAB PO SCH ×2 (08:43→21:28)
--- NOTE | 2018-02-07 10:56 | HOSPPROG ---
Hospitalist Progress Note Assessment/Plan: Hypertension (Acute) 27 yo M with hx of ESRD on chronic HD as well as HTN presenting off of his BP meds x 2 days with hypertensive urgency # hypertensive urgency - Did not respond to labetalol in the ER and as high as SBP 250 initially - Started on cardene gtt with goal to decrease SBP by no more than 20%--per prior records he does often run in the systolics 200 at HD so this is not too far off of his baseline. - Started on Clonidine patch on 02/05 as well as Labetalol 200 mg BID, titrated off of Cardene gtt yesterday - Increased dose of Labetalol to home dose 600 mg BID, added Amlodipine 10 mg qd yesterday - Per Nephrology they recommended continuing current regimen, will discuss plan with them today # ESRD - Nephrology consulted - On chronic HD which was performed this morning - HD MWF or per Renal # Headache - due to problem 1 - No intracranial bleed on CT, monitoring - If sxs worsen could consider repeat head CT # hypokalemia - s/p HD this morning, given ESRD will not replete >3.0 # IP status, pending clinical course, will discuss with CM today due to patient' s homelessness Subjective: Patient reports no complaints this morning Objective: Vital Signs Temp Pulse Resp BP Pulse Ox 36.6 C 103 H 18 198/129 H 95 02/06/18 14:00 02/07/18 08:43 02/07/18 07:55 02/07/18 08:43 02/07/18 07:55 Laboratory Results 02/07/18 06:35 02/07/18 06:35 02/06/18 02/07/18 02/08/18 05:59 05:59 05:59 Intake Total 1414 Output Total 750 1650 Balance 664 -1650 - Physical Exam Constitutional: no apparent distress, unkempt Eyes: PERRL Ears, Nose, Mouth, Throat: moist mucous membranes Cardiovascular: regular rate and rhythym Respiratory: no respiratory distress, clear to auscultation Gastrointestinal: soft, non-tender abdomen Genitourinary: no bladder tenderness Skin: warm Musculoskeletal: no muscle tenderness Neurologic: AAOx3 Psychiatric: interacting appropriately ICD10 Worksheet Patient Problems: Problems Problem Status Onset Hypertension Acute Acute pancreatitis Acute Colitis Acute ESRD needing dialysis Acute Hypertensive encephalopathy Acute Renal failure Acute
--- NOTE | 2018-02-07 17:06 | SOAPPROG ---
SOAP Progress Note Assessment/Plan: Assessment: 1. htn: remains quite high but asymptomatic and per his report is his b/l. Persistent tachycardia despite clonidine patch and relatively high dose labetalol. Will add po clonidine to current meds. Check tsh if not already done. Volume status looks ok. Continuing admission until bp normalized or even near-normal is probably not a reasonable goal. 2. Esrd: Next hd Friday on typical mwf schedule. 3. dispo: pt hoping to get back to [place], unclear how realistic this goal is. Plan: 02/06/18 15:01 02/07/18 17:02 02/07/18 17:06 Subjective: On the phone, reluctant to get off. Denies BYNUM. Objective: Vital Signs Temp Pulse Resp BP Pulse Ox 36.6 C 108 H 14 203/134 H 97 02/06/18 14:00 02/07/18 16:00 02/07/18 16:00 02/07/18 16:00 02/07/18 16:00 Laboratory Results 02/07/18 06:35 02/07/18 06:35 02/06/18 02/07/18 02/08/18 05:59 05:59 05:59 Intake Total 1414 Output Total 750 1650 250 Balance 664 -1650 -250 Physical Exam - Physical Exam General Appearance: no apparent distress Extremities: pedal edema (none) ICD10 Worksheet Patient Problems: Problems Problem Status Onset Hypertension Acute Acute pancreatitis Acute Colitis Acute ESRD needing dialysis Acute Hypertensive encephalopathy Acute Renal failure Acute
[2018-02-08] MEDS: HEPARIN 5,000 UNIT/0.5 ML INJ SC SCH (08:59)
[2018-02-08] MEDS: LABETALOL HCL 200 MG TAB PO SCH (08:59)
[2018-02-08 09:08] VITALS: BP 185/124
--- NOTE | 2018-02-08 11:04 | PDDCSUM ---
Discharge Summary Discharge Summary: Date of Admission: 02/04/2018 Date of Discharge: 02/08/2018 Consults: Critical Care, Nephrology Procedures: N/A Followup: Hemodialysis, PCP Hospital Course Problem List: 27 yo M with hx of ESRD on chronic HD as well as HTN presenting off of his BP meds x 2 days with hypertensive urgency # hypertensive urgency - Did not respond to labetalol in the ER and as high as SBP 250 initially - Started on cardene gtt - Started on Clonidine patch on 02/05 as well as Labetalol 200 mg BID, titrated off of Cardene gtt yesterday - Increased dose of Labetalol to home dose 600 mg BID, added Amlodipine 10 mg qd on 02/06 - Nephrology added PO Clonidine 0.1 mg TID - BP improved to 180s/100s upon discharge # ESRD - Nephrology consulted - HD MWF or per Renal # Headache - due to problem 1 - No intracranial bleed on CT, monitoring - If sxs worsen could consider repeat head CT # hypokalemia - s/p HD, given ESRD will not replete >3.0 Time Spent on discharge was >35 minutes with >50% of time spent on patient education and counseling
--- NOTE | 2018-02-10 11:32 | ASMTDCNOTE ---
Case Management Discharge Discharge Order Complete? Answers: Yes Patient to Obtain Answers: Independently Medications Transportation Arranged Answers: Other Notes: [employer] Transport will Pick (Date 02/08/2018 11:00 AM & Time) Discharge Comments Notes: Patient has been discharged. Given clothes. Was going to his dialysis appt on Friday. Planned to return to [place]. Date Signed: 02/10/2018 11:31 AM Electronically Signed By:Laine Haley LCSW
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
== END 2018-02-08 11:00 | disposition home or self-care (01) | DRG 199 ==
LOC: EDUNIT# → F2N 21:47
PROVIDERS: ADMIT Internal Medicine; ATTEND Internal Medicine
PROC: 5A1D70Z Performance of Urinary Filtration, Intermittent, Less than 6 Hours Per Day (ICD-10-PCS; principal; 2018-02-06)
DX: I16.0 Hypertensive urgency (principal); I15.1 Hypertension secondary to other renal disorders; N03.1 Chronic nephritic syndrome with focal and segmental glomerular lesions; R51 Headache; R11.2 Nausea with vomiting, unspecified; N18.6 End stage renal disease; D63.1 Anemia in chronic kidney disease; Z99.2 Dependence on renal dialysis; E87.6 Hypokalemia; Z59.0 Homelessness
CPT/HCPCS: 96365; J1644; J2405

== ENCOUNTER 2018-03-23 19:06 | Inpatient (IN) | payer MEDICAID ==
[2018-03-23] MEDS ORDERED: LABETALOL HCL 5 MG/ML 20 ML MDV IVP ONE (19:30)
--- NOTE | 2018-03-23 19:32 | EDPHY ---
H & P Stated Complaint: HTN/BYNUM post dialysis Time Seen by Provider: 03/23/18 19:11 - Personal History Current Tetanus/Diphtheria Vaccine: Yes - Medical/Surgical History Hx Asthma: No Hx Chronic Respiratory Disease: No Hx Diabetes: No Hx Cardiac Disease: No Hx Renal Disease: Yes Hx Cirrhosis: No Hx Alcoholism: No Hx HIV/AIDS: No Hx Splenectomy or Spleen Trauma: No Other PMH: HTN, ESRD, eye surgery, dialysis, wisdom teeth out - Social History Smoking Status: Light smoker Constitutional: Initial Vital Signs Temperature (C) 36.9 C 03/23/18 19:09 Heart Rate 88 03/23/18 19:09 Respiratory Rate 16 03/23/18 19:09 Blood Pressure 232/148 H 03/23/18 19:09 O2 Sat (%) 97 03/23/18 19:09 O2 Delivery Mode Room Air Allergies/Adverse Reactions: No Known Allergies Allergy (Verified 03/23/18 19:10) Home Medications: Medication Instructions Recorded Labetalol HCl 600 mg PO BID #60 tablet 02/08/18 clonIDINE [Catapres (*)] 0.1 mg PO TID #90 tab 02/08/18 clonIDINE [Catapres-Tts (*)] 0.2 mg TD Q7D #5 patch 02/08/18 amLODIPine BESYLATE [Norvasc 10 mg 10 mg PO DAILY 03/23/18 (*)] Medical Decision Making - Diagnostics Imaging Results: Imaging Impressions Head CT 03/23/18 19:32 Impression: 1. No acute intracranial findings. If symptoms persist and clinical suspicion warrants, consider MRI. 2. Slight increase in size of a mucous retention cyst/polyp in the left maxillary sinus. Findings discussed with Boni Bustos M.D., on March 23, 2018 at 2017. Imaging: Discussed imaging studies w/ water chemist Radiologist ED Course/Re-evaluation: CHIEF COMPLAINT: Headache, hypertension HISTORY OF PRESENT ILLNESS: This patient is a 27 year old male with past medical history significant for uncontrolled hypertension and end stage renal disease. He arrives today via EMS for evaluation of headache and hypertension. He states he has not been taking his usual antihypertensive medications because he has run out. He states he feels "pretty out of it" due to his headache. He usually takes amlodipine, clonidine, and labetalol. His blood pressure on arrival is 232/148. The patient additionally has ESRD and is on dialysis treatment. His last treatment was today at [facility]. He denies chest pain, shortness of breath, vomiting, diarrhea, urinary complaints, or other associated symptoms. REVIEW OF SYSTEMS: A comprehensive 10 system review of systems is otherwise negative aside from elements mentioned in the history of present illness. PHYSICAL EXAM: General Appearance: Alert, well hydrated, appropriate, and non-toxic appearing. Head: Atraumatic without scalp tenderness or obvious injury Eyes: Pupils equal, round, reactive to light and accommodation, EOMI, no trauma , no injection. Throat: Mucus membranes moist. Neck: Supple, non-tender Respiratory: No retractions, no distress, no wheezes, and no accessory muscle use. Lungs are clear to auscultation bilaterally. Cardiovascular: Regular rate and rhythm, no murmurs, rubs, or gallops. Good capillary refill all extremities. Gastrointestinal: Abdomen is soft, non-tender, non-distended. Musculoskeletal: Functioning left forearm AVF. Normal active ROM of all extremities, atraumatic. Neurological: Alert, appropriate, and interactive. Nonfocal neuro exam. Skin: No rashes, good turgor, no nodules on palpation. Past medical history: Hypertension. End stage renal disease. Past surgical history: Left forearm AVF placed. Family history: Noncontributory. Social history: Transient. Occasional alcohol use. Light tobacco use. DIFFERENTIAL DIAGNOSIS: Includes but not limited to essential hypertension, idiopathic hypertension, hypertension secondary to renal insufficiency, hypertensive urgency, hypertensive emergency. MEDICAL DECISION MAKING: This young homeless black male presents with uncontrolled hypertension and headache, BP 232/148. Possible rebound hypertension and tachycardia due to medication rebound. 19:30 Patient meets criteria for hypertensive urgency. Plan for i-stat. Plan for CT head to r/o intracranial hemorrhage or other acute processes. As patient is already experiencing symptoms including severe headache, plan for evaluation of other systems including kidney, heart, and lungs to r/o end organ problems. The patient denies any shortness of breath, chest pain, or chest pressure. Plan for EKG and POC troponin. Plan to administer 20mg IV labetalol followed by labetalol drip for antihypertensive effects. Plan to admit for further evaluation and treatment. 20:[address] Dunne, radiologist. CT head negative for acute processes including acute bleed. 20:18 Consulted with hospitalist service. Dr. Singletary accepts admission for hypertensive urgency. Creatinine elevated at 4.1, but this is normal/low for him compared to prior laboratory studies. The patient has known ESRD and did receive dialysis today. Patient's BP is not notably reduced following labetalol administration. Plan to administer 0.2mg IV clonidine prior to departure from the emergency department to the floor. - Data Points Laboratory Results: Laboratory Results 03/23/18 19:41 03/23/18 19:41 03/23/18 03/23/18 19:41 19:41 WBC 6.49 10^3/uL 10^3/uL (3.80-9.50) RBC 3.93 10^6/uL L 10^6/uL (4.40-6.38) Hgb 11.0 g/dL L g/dL (13.7-17.5) Hct 30.9 % L % (40.0-51.0) MCV 78.6 fL L fL (81.5-99.8) MCH 28.0 pg pg (27.9-34.1) MCHC 35.6 g/dL g/dL (32.4-36.7) RDW 15.6 % H % (11.5-15.2) Plt Count 167 10^3/uL 10^3/uL (150-400) MPV 9.0 fL fL (8.7-11.7) Neut % (Auto) 66.3 % % (39.3-74.2) Lymph % (Auto) 22.8 % % (15.0-45.0) [place] % (Auto) 8.3 % % (4.5-13.0) Eos % (Auto) 1.7 % % (0.6-7.6) Baso % (Auto) 0.6 % % (0.3-1.7) Nucleat RBC Rel Count 0.0 % % (0.0-0.2) Absolute Neuts (auto) 4.30 10^3/uL 10^3/uL (1.70-6.50) Absolute Lymphs (auto) 1.48 10^3/uL 10^3/uL (1.00-3.00) Absolute Monos (auto) 0.54 10^3/uL 10^3/uL (0.30-0.80) Absolute Eos (auto) 0.11 10^3/uL 10^3/uL (0.03-0.40) Absolute Basos (auto) 0.04 10^3/uL 10^3/uL (0.02-0.10) Absolute Nucleated RBC 0.00 10^3/uL 10^3/uL (0-0.01) Immature Gran % 0.3 % % (0.0-1.1) Immature Gran # 0.02 10^3/uL 10^3/uL (0.00-0.10) Sodium 137 mEq/L mEq/L (135-145) Potassium 3.3 mEq/L mEq/L (3.3-5.0) Chloride 95 mEq/L L mEq/L (97-110) Carbon Dioxide 32 mEq/l H mEq/l (22-31) Anion Gap 10 mEq/L mEq/L (6-14) BUN 29 mg/dL H mg/dL (7-23) Creatinine 4.1 mg/dL H mg/dL (0.7-1.3) Estimated GFR 18 Glucose 106 mg/dL H mg/dL (70-100) Calcium 8.2 mg/dL L mg/dL (8.5-10.4) Medications Given: Hydrocodone Bitart/Acetaminophen ([place] 5/325) 1 - 2 tab PO Q4HRS PRN PRN Reason: Pain, Moderate Able to Take PO Stop: 04/02/18 21:39 Last Admin: 03/23/18 22:29 Dose: 2 tab Clonidine (Catapres) 0.1 mg PO TID [facility] Stop: 09/19/18 21:59 Last Admin: 03/23/18 22:29 Dose: 0.1 mg Clonidine (Catapres-Tts) 0.2 mg TD Q7D [facility] Stop: 09/19/18 21:44 Last Admin: 03/23/18 22:28 Dose: 0.2 mg Hydralazine HCl (Apresoline) 10 mg IVP Q6HRS PRN PRN Reason: sbp > 200 Stop: 09/19/18 21:41 Last Admin: 03/23/18 23:31 Dose: 10 mg Discontinued Medications Clonidine (Catapres) 0.2 mg PO EDNOW ONE Stop: 11/19/18 20:21 Last Admin: 03/23/18 20:25 Dose: 0.2 mg Labetalol HCl 200 mg/ Dextrose 200 mls @ 0 mls/hr IV CONT SUSAN; As Directed PRN Reason: Protocol Stop: 09/19/18 19:29 Last Admin: 03/23/18 22:01 Dose: 200 mls Labetalol HCl (Trandate Injection) 20 mg IVP EDNOW ONE Stop: 03/23/18 19:31 Last Admin: 03/23/18 19:37 Dose: 20 mg Departure - Departure Disposition: [facility] Inpatient Acute Clinical Impression: Hypertensive urgency, ESRD (end stage renal disease) Condition: Fair Report Scribed for: Boni Bustos Report Scribed by: Simi Mae Date of Report: 03/23/18 Time of Report: 19:15
[2018-03-23 19:50] LABS: PLATELET COUNT 167 10^3/uL (150-400)
--- NOTE | 2018-03-23 19:58 | CPEKG ---
Test Reason : OPEN Blood Pressure : / mmHG Vent. Rate : 086 BPM Atrial Rate : 086 BPM P-R Int : 166 ms QRS Dur : 090 ms QT Int : 419 ms P-R-T Axes : 001 007 -01 degrees QTc Int : 502 ms Sinus rhythm Probable left atrial enlargement Probable left ventricular hypertrophy ST elev, probable normal early repol pattern Prolonged QT interval Confirmed by Boni Bustos ([id number]) on 03/23/2018 7:57:48 PM Referred By: Confirmed By:Boni Bustos
[2018-03-23] MEDS: LABETALOL HCL 200 MG in D5W 200 ML IV SCH ×2 (20:04→22:01)
[2018-03-23] MEDS ORDERED: HYDROCODONE/APAP 5/325 TAB PO PRN (21:40)
[2018-03-23] MEDS ORDERED: ONDANSETRON DISINTEGRATING 4 MG TAB PO PRN (21:40)
[2018-03-23] MEDS ORDERED: HYDROmorphONE/DILAUDID 2 MG/ML INJ IVP PRN (21:40)
[2018-03-23] MEDS ORDERED: PROMETHAZINE HCL 25 MG/ML INJ IVP PRN (21:40)
[2018-03-23] MEDS ORDERED: oxyCODONE IR 5 MG TAB PO PRN (21:40)
[2018-03-23] MEDS ORDERED: LORazepam 2 MG/ML INJ IVP PRN (21:40)
[2018-03-23] MEDS ORDERED: ACETAMINOPHEN 325 MG TAB PO PRN (21:40)
[2018-03-23] MEDS ORDERED: ONDANSETRON 4 MG/2 ML VIAL IVP PRN (21:40)
[2018-03-23] MEDS ORDERED: hydrALAZINE 20 MG/ML VIAL IVP PRN (21:42)
--- NOTE | 2018-03-23 21:50 | PDGENHP ---
History and Physical - Chief Complaint BYNUM, elevated BP - History of Present Illness Patient is a 27 yo M with PMH of ESRD as well as chronic uncontrolled HTN presenting from HD with BYNUM and elevated BP. Patient notes that he has been out of his usual BP meds and knows his BP is high due to his headache. He has some associated nausea which is also chronic for him. He denies chest pain or sob, denies numbness or weakness anywhere. He notes that he feels a bit "out of it" and does not open his eyes when he speaks to me. He states his usual BP is around 180-200 systolic most days, but it gets higher than that regularly also and that is even when he is taking his medications. When he arrived to the ER his BP was 230/150. History Information - Allergies/Home Medication List Allergies/Adverse Reactions: No Known Allergies Allergy (Verified 03/23/18 19:10) Home Medications: amLODIPine BESYLATE [Norvasc 10 mg (*)] 10 mg PO DAILY 03/23/18 [Last Taken Unknown] I have personally reviewed and updated: family history, medical history, social history, surgical history - Past Medical History hypertension Additional medical history: FSGS. ESRD on HD MWF. benign essential HTN - Surgical History Additional surgical history: left arm AVF. - Family History Positive for: hypertension. Negative for: diabetes type II - Social History Smoking Status: Light smoker Alcohol Use: Occasionally Drug Use: None Additional social history: homeless Review of Systems Review of Systems: ROS: 10pt was reviewed & negative except for what was stated in HPI & below Physical Exam Physical Exam: Temp Pulse Resp BP Pulse Ox 36.9 C 96 14 210/140 H 97 03/23/18 21:30 03/23/18 21:30 03/23/18 21:30 03/23/18 21:30 03/23/18 21:30 Constitutional: no apparent distress, appears nourished Eyes: PERRL, anicteric sclera Ears, Nose, Mouth, Throat: moist mucous membranes, hearing normal Cardiovascular: regular rate and rhythym, no murmur, rub, or gallop, No edema Respiratory: no respiratory distress, no rales or rhonchi, clear to auscultation Gastrointestinal: normoactive bowel sounds, soft, non-tender abdomen Genitourinary: no bladder tenderness Skin: warm, normal color Musculoskeletal: no muscle tenderness Neurologic: AAOx3, CN II-XII Intact Psychiatric: interacting appropriately, not anxious, not encephalopathic Lab Data & Imaging Review 03/23/18 19:41 03/23/18 19:41 WBC 6.49 10^3/uL (3.80-9.50) 03/23/18 19:41 RBC 3.93 10^6/uL (4.40-6.38) L 03/23/18 19:41 Hgb 11.0 g/dL (13.7-17.5) L 03/23/18 19:41 Hct 30.9 % (40.0-51.0) L 03/23/18 19:41 MCV 78.6 fL (81.5-99.8) L 03/23/18 19:41 MCH 28.0 pg (27.9-34.1) 03/23/18 19:41 MCHC 35.6 g/dL (32.4-36.7) 03/23/18 19:41 RDW 15.6 % (11.5-15.2) H 03/23/18 19:41 Plt Count 167 10^3/uL (150-400) 03/23/18 19:41 MPV 9.0 fL (8.7-11.7) 03/23/18 19:41 Neut % (Auto) 66.3 % (39.3-74.2) 03/23/18 19:41 Lymph % (Auto) 22.8 % (15.0-45.0) 03/23/18 19:41 [place] % (Auto) 8.3 % (4.5-13.0) 03/23/18 19:41 Eos % (Auto) 1.7 % (0.6-7.6) 03/23/18 19:41 Baso % (Auto) 0.6 % (0.3-1.7) 03/23/18 19:41 Nucleat RBC Rel Count 0.0 % (0.0-0.2) 03/23/18 19:41 Absolute Neuts (auto) 4.30 10^3/uL (1.70-6.50) 03/23/18 19:41 Absolute Lymphs (auto) 1.48 10^3/uL (1.00-3.00) 03/23/18 19:41 Absolute Monos (auto) 0.54 10^3/uL (0.30-0.80) 03/23/18 19:41 Absolute Eos (auto) 0.11 10^3/uL (0.03-0.40) 03/23/18 19:41 Absolute Basos (auto) 0.04 10^3/uL (0.02-0.10) 03/23/18 19:41 Absolute Nucleated RBC 0.00 10^3/uL (0-0.01) 03/23/18 19:41 Immature Gran % 0.3 % (0.0-1.1) 03/23/18 19:41 Immature Gran # 0.02 10^3/uL (0.00-0.10) 03/23/18 19:41 Sodium 137 mEq/L (135-145) 03/23/18 19:41 Potassium 3.3 mEq/L (3.3-5.0) 03/23/18 19:41 Chloride 95 mEq/L (97-110) L 03/23/18 19:41 Carbon Dioxide 32 mEq/l (22-31) H 03/23/18 19:41 Anion Gap 10 mEq/L (6-14) 03/23/18 19:41 BUN 29 mg/dL (7-23) H 03/23/18 19:41 Creatinine 4.1 mg/dL (0.7-1.3) H 03/23/18 19:41 Estimated GFR 18 03/23/18 19:41 Glucose 106 mg/dL (70-100) H 03/23/18 19:41 Calcium 8.2 mg/dL (8.5-10.4) L 03/23/18 19:41 Visualized and Interpreted imaging results: Yes Interpretation: head CT: no acute findings Visualized and Interpreted EKG results: Yes EKG Interpretation: Positive for: normal sinsus rhythm EKG additional interpertation: LVH Assessment & Plan Assessment: 27 yo M with hx of ESRD and chronic uncontrolled HTN presenting with hypertensive emergency # hypertensive emergency: with BP that generally runs in the high 190s to 200s systolic but presenting even higher and symptomatic with that. Started on labetalol gtt and goal would be to lower 10-20% in the first hour which he has achieved, goal will be to decrease another 10-15% over the coming 24 hours. Will resume home meds in the am. # ESRD: on MWF HD and had HD today, if patient not discharging to attend his Wed HD session renal will need to be consulted in the am, todd currently wnl # anemia: 2/2 anemia of chronic disease, stable # IP status, high risk presenting issue Patient new to my care. Old records reviewed and summarized as above. Care plan reviewed with ER doctor as above.
[2018-03-23] MEDS ORDERED: niCARdipine/NACL 200 ML IV SCH (23:30)
[2018-03-24 04:21] LABS: PLATELET COUNT 168 10^3/uL (150-400)
--- NOTE | 2018-03-24 10:05 | PDMN ---
Medical Necessity Medical necessity: Per and MCG M-197 as of 03/23/2018; est los > 2 mn for tx and management of hypertensive emergency (230/150) in the setting of dialysis dependent renal failure; requiring labatolol gtt and cardiac monitoring
--- NOTE | 2018-03-24 10:17 | ASMTCMCOM ---
CM Note CM Note Notes: CM reviewed pt's chart and met with pt for d/c planning. Pt is a 27 y/o male hospitalized due to hypertensive urgency. Pt has end stage renal failure. He is homeless. During pt's previous hospitalization he had declined having his parents notified, but had spoken of his desire to return home to his family in [place], [place] by [employer] bus, but did not have the money to do that. He had been offered medical respite in [place] and declined. He now relates that he had been initially sleeping at [facility], but is unable to return to [facility] becuase he did not participate in the work preperation progam. He tried to sleep at the [facility], but had difficulty making it there in time secondary to dialysis and was frustrated at not always being given a bottom bunk due to his medical condition. He has been sleeping outside. CM will continue to work with him to locate a reliably sheltered place to spend the night. D/C Plan: TBD Date Signed: 03/24/2018 10:16 AM Electronically Signed By:Gladys Zarate
[2018-03-24] MEDS: LOSARTAN POTASSIUM 50 MG TAB PO SCH (10:46)
[2018-03-24] MEDS: ATENOLOL 25 MG TAB PO SCH (10:46)
[2018-03-24] MEDS ORDERED: PNEUMOCOCCAL 0.5ML VACCINE VIAL (PNEUMOVAX 23) IM ONE (12:06)
--- NOTE | 2018-03-24 13:32 | ECHO ---
[email or web address] [address] [address] Main: [phone] Fax: [email or web address] Echocardiogram Name: KAILA HALL MR#: [id number] Study Date: 03/24/2018 Study Time: 11:12 AM Date of : 1990 Age: 27 year(s) Height: 162.6 cm (64 in.) Weight: 65.32 kg (144 lb.) BSA: 1.7 m2 Gender: Male Examination: Echo Indication: chf/htn Image Quality: Adequate Contrast: Requested by: Dipesh De La O BP: 178 mmHg/114 mmHg Heart Rate: Rhythm: Indication: chf/htn Procedure Staff Pipe Coverer: Dinorah Chang RDCS Reading Physician: Marin Morales MD Requesting Provider: Conclusions: Normal size left ventricle. Severe concentric LV hypertrophy. Normal global systolic LV function. EF is 61 %. No regional wall motion abnormality. The left atrium is moderately dilated. Mild mitral valve regurgitation is present. Trivial to mild tricuspid valve regurgitation. The pulmonary artery pressure is normal. Right ventricular systolic pressure measures 25mmHg. Small pericardial effusion. 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 Measurements: Chambers Valvular Assessment AV/MV Valvular Assessment TV/PV Normal Normal Normal Name Value Range Name Value Range Name Value Range Ao Jaymie (2D): 2.6 cm (1.4 cm-2.6 AV Vmax: 1.58 m/s (1 m/s-1.7 TR Vmax: 2.25 mm/s ( - ) cm) m/s) TR PGmax: 20 mmHg ( - ) IVSd (2D): 1.8 cm (0.6 cm-1.1 AV maxP mmHg ( - ) syst. PAP: 25 mmHg ( - ) cm) AV meanP mmHg ( - ) PV Vmax: 1.15 m/s (0.6 m/s-0.9 LVDd (2D): 3.9 cm (4.2 cm-5.9 LARRY (VTI): 2.3 cm ( - ) m/s) cm) MV E Vmax: 0.74 m/s ( - ) PV PGmax: 5 mmHg ( - ) LVDs (2D): 2.6 cm (2.1 cm-4 MV A Vmax: 0.67 m/s ( - ) cm) MV E/A: 1.10 ( - ) LVPWd (2D): 1.8 cm (0.6 cm-1 cm) MV PHT: 0.048 s ( - ) LVOTd 2.1 cm 2.1 cm mm MVA (PHT): 4.6 s ( - ) LVEF (BP): 61 % (>=55 %) RVDd(2D): 2.9 cm (1.9 cm-3.8 cmmm) Patient: KAILA HALL Study Date: 03/24/2018 Page 1 of 2 11:12 AM Continued Measurements: Chambers Valvular Assessment AV/MV Valvular Assessment TV/PV Name Value Name Value Name Value LADs: 4.8 cm MV DecTime: 169 m/s CVP (est.): 5 mmHg LADs Lon.5 cm MV E/E' Lateral: 10.10 LA Area: 22.2 cm2 LA Volume: 75 ml LA Volume Index: 44.1 ml/m2 RA Area: 15.6 cm2 Additional Vessels Name Value Ao Ascendin.4 cm Inferior Vena Cava: 1.3 cm Findings: Left Ventricle: Normal size left ventricle. Severe concentric LV hypertrophy. Normal global systolic LV function. EF is 61 %. No regional wall motion abnormality. Unable to assess diastolic dysfunction. Right Ventricle: Normal size right ventricle. Normal RV function. Left Atrium: The left atrium is moderately dilated. Right Atrium: The right atrium is normal in size. Mitral Valve: The mitral valve is normal in appearance and function. Mild mitral valve regurgitation is present. No mitral stenosis is present. Aortic Valve: The aortic valve is tri-leaflet. There is no significant aortic valve regurgitation. No aortic valve stenosis is present. Tricuspid Valve: The tricuspid valve is normal in appearance and function. Trivial to mild tricuspid valve regurgitation. The pulmonary artery pressure is normal. Right ventricular systolic pressure measures 25mmHg. Pulmonic Valve: The pulmonic valve is normal in appearance and function. Trivial pulmonic valve regurgitation. Aorta: The aorta is normal. Normal size aortic root measuring 2.6 cm. Normal size ascending aorta measuring 2.4 cm. IVC: The IVC is normal sized. Pericardium: Small pericardial effusion. No pleural effusion. (No Signature Object) Patient: KAILA HALL Study Date: 03/24/2018 Page 2 of 2 11:12 AM [id number]
[2018-03-24 13:48] LABS: HEPATITIS B SURFACE ANTIGEN NEGATIVE (NEGATIVE); HEPATITIS C ANTIBODY TOTAL REACTIVE (NEGATIVE)
--- NOTE | 2018-03-24 15:25 | GCON ---
DATE OF CONSULTATION: 03/24/2018 REASON FOR CONSULTATION: Opinion regarding end-stage kidney failure and hypertension. HISTORY OF PRESENT ILLNESS: The patient is a very pleasant 27-year-old gentleman who moved to the [facility] a little over a year ago. He remained homeless, he was not able to get into the homeless s helters and so sleeps on the street. He does hemodialysis 3 times weekly, Friday, Friday, and Fri at the [facility] in [place]. He was in his usual state of health until Friday when he presented to the dialysis unit with headache and not feeling very well, some dizziness and lighthead edness. He underwent dialysis, completed his treatment, but his blood pressures were still around 22 0/135. He presented to the emergency department and was admitted. Blood pressure control is better, he is on a Cardene drip as well as hydralazine, clonidine, amlodipine and labetalol. Currently, he feels reasonably well. He is a bit tired. He has not had fevers, chills, nausea, vomi ting, chest pain, shortness of breath, cough, sputum, hemoptysis, hematemesis, epistaxis, abdominal p ain, diarrhea, constipation, melena, hematochezia, blurry vision, double vision, headache, orthopnea, paroxysmal nocturnal dyspnea, palpitations, or syncope. MEDICATIONS: Include amlodipine 10 mg a day. Catapres TTS 2 patch, change every 7 days, Cardene inf usion, hydralazine 10 mg IV p.r.n., labetalol p.r.n. ALLERGIES: None. FAMILY HISTORY: Positive for hypertension. Negative for focal sclerosis or ESRD. SOCIAL HISTORY: He is not . He is homeless. He drinks occasional alcoholic beverage. Does not use IV drugs. Does smoke marijuana. Is formerly from [place]. PAST MEDICAL HISTORY: Significant for: 1. End-stage kidney failure on 3 times weekly dialysis. 2. History of focal segmental glomerulosclerosis. 3. Hypertension. REVIEW OF SYSTEMS: A complete 12-point review of systems was performed with pertinent positives and negatives as per the previous sections. PHYSICAL EXAMINATION: VITAL SIGNS: Blood pressure this morning is 175/115, on admission was 217/135 , pulse 91, respirations 12, temp 36.1 degrees. Urine output 175 cc. GENERAL: He is alert, awake, cooperative and is in no acute distress. HEENT: Pupils are reactive to light. Extraocular movements are intact. Mucous membranes are moist. NECK: No lymphadenopathy or thyromegaly. HEART: Regular g rade 2/6 systolic murmur. No rub. No S3. LUNGS: No rales, rhonchi, or wheezes. ABDOMEN: Bowel sound s are positive. Soft, nontender, nondistended. EXTREMITIES: No edema. NEUROLOGIC: No asterixis. S KIN: No unusual rashes or lesions. LYMPH: No palpable lymphadenopathy or lymphedema. MUSCULOSKELETAL: He has a left upper arm arteriovenous fistula with a good bruit and thrill. LABORATORY: WBC 5.4, hemoglobin 11.3, hematocrit 32, platelet count 168,000. Serum sodium 138, pota ssium 3.4, chloride 97, CO2 29, BUN 31, creatinine 4.9, glucose 107, calcium 7.7. CT scan of the bra in showed no acute changes. IMPRESSION: 1. Hypertensive urgency. Blood pressures are better since admission, he remains on a Cardene drip. 2. Needs different outpatient medication therapeutic change. He has been on medications that are 2 and 3 times daily, I suspect he does not take them routinely. I think we should change him to once d aily medications. We will give him some atenolol 25 mg a day. We will also start him on losartan 50 mg a day and we can push that up as needed. Continue with his amlodipine 10 mg daily and a Catapres TTS 2 patch. He may need some alpha blockade and so we can use long-acting alpha gonzalez as well, w e can possibly that add on later. 3. I would like to get an echocardiogram to look at his ventricular function, thickness as well as h is heart valves to see if there are any valvular issues. 4. Plan on doing dialysis tomorrow. 5. Continue his other therapies as is. Thank you for allowing me to participate in the care of your patient. If there are any questions, pl ease do not hesitate to contact us. We will be following along with you. /[id number]/MODL
--- NOTE | 2018-03-24 16:14 | HOSPPROG ---
Hospitalist Progress Note Assessment/Plan: 27yo homeless M with hx of ESRD and chronic uncontrolled HTN presenting with hypertensive emergency. 1. Hypertensive emergency: As evidenced by headache and mild troponin elevation. Patient has demonstrated that he is unable to take TID medications. - Renal consulted - Start atenolol 25 daily, losartan 50 daily (he is anuric) - Continue amlodipine 10, clonidine patch - Wean nicardipine gtt, goal SBP 160-170s (probably won't tolerate much lower ) - Consider add alpha gonzalez (doxazosin) prior to discharge 2. ESRD: Related to FSGS, on HD for last year. LUE AV fistula - Plan for HD tomorrow 3. Anemia: Due to kidney disease. Stable. 4. Mild MR: Noted on TTE. Serial follow up. 5. Psychosocial: He is homeless and seems to have minimal insight into the severity of his disease. He does not have significant plans to seek [facility]. CM involved, trying to see if he can get bed at [facility]. He has refused [facility] in [place] in the past. VTE ppx: SCDs Diet: renal Dispo: Remain inpatient, still on IV anti-hypertensives. Subjective: Headache better. Denies chest pain, vision changes, dyspnea, leg swelling. Still on cardene gtt. SBP 170s. Objective: Vital Signs Temp Pulse Resp BP Pulse Ox 36.7 C 89 14 168/107 H 97 03/24/18 11:00 03/24/18 15:21 03/24/18 11:00 03/24/18 15:21 03/24/18 11:00 Laboratory Results 03/24/18 03:40 03/24/18 03:40 03/23/18 03/24/18 03/25/18 05:59 05:59 05:59 Intake Total 398 320 Output Total 250 375 Balance 148 -55 - Physical Exam Constitutional: no apparent distress, appears nourished, not in pain Eyes: PERRL, anicteric sclera, EOMI Ears, Nose, Mouth, Throat: moist mucous membranes, hearing normal, ears appear normal, no oral mucosal ulcers Cardiovascular: regular rate and rhythym, no murmur, rub, or gallop, No JVD, No edema Respiratory: no respiratory distress, no rales or rhonchi, clear to auscultation Gastrointestinal: normoactive bowel sounds, soft, non-tender abdomen, no palpable masses Genitourinary: no bladder fullness, no bladder tenderness, no renal bruits Skin: no rashes or abrasions, no fluctuance, no induration Musculoskeletal: full muscle strength, no muscle tenderness, normal joint ROM Neurologic: AAOx3, sensation intact bilaterally Psychiatric: interacting appropriately, not anxious, not encephalopathic, thought process linear ICD10 Worksheet Patient Problems: Problems Problem Status Onset ESRD (end stage renal disease) Acute Hypertensive urgency Acute Acute pancreatitis Acute Colitis Acute ESRD needing dialysis Acute Hypertension Acute Hypertensive encephalopathy Acute Renal failure Acute
[2018-03-24] MEDS: hydrALAZINE 20 MG/ML VIAL IVP PRN (21:43)
[2018-03-25 04:23] LABS: PLATELET COUNT 186 10^3/uL (150-400)
[2018-03-25] MEDS: ATENOLOL 25 MG TAB PO SCH (07:50)
[2018-03-25] MEDS: LOSARTAN POTASSIUM 50 MG TAB PO SCH (07:50)
[2018-03-25] MEDS: hydrALAZINE 20 MG/ML VIAL IVP PRN ×2 (09:05→16:25)
--- NOTE | 2018-03-25 11:57 | HOSPPROG ---
Hospitalist Progress Note Assessment/Plan: 27yo homeless M with hx of ESRD and chronic uncontrolled HTN presenting with hypertensive emergency. He was treated with a Cardene drip and this was discontinued on 03/24. He is saying he will leave today after dialysis if he feels up to it. 1. Hypertensive emergency: As evidenced by headache and mild troponin elevation. Patient has demonstrated that he is unable to take TID medications. - Renal consulted - Started atenolol 25 daily, can likely increase to 50mg daily if OK with Renal. -Started losartan 50 daily (he is anuric). Can likely increase to 100mg daily if ok with Renal - Continue amlodipine 10, clonidine patch. - Off nicardipine gtt - Consider add alpha gonzalez (doxazosin) prior to discharge - Hydralazine PRN 2. ESRD: Related to FSGS, on HD for last year. LUE AV fistula - Plan for HD today -Gets HD on // 3. Anemia: Due to kidney disease. Stable. 4. Mild MR: Noted on TTE. Serial follow up. 5. Psychosocial: He is homeless and seems to have minimal insight into the severity of his disease. He does not have significant plans to seek [facility]. CM involved, trying to see if he can get bed at [facility]. He has refused [facility] in [place] in the past. VTE ppx: SCDs Diet: renal Dispo: Remain inpatient, cont with BP mgmt If he wishes to leave today prior to renal seeing him, then we will attempt to provide scripts with the medication changes per above. Subjective: no cp or sob. Had elevated BP this morning. Required Hydralazine. He is getting HD today. He is requesting discharge right after Objective: Vital Signs Temp Pulse Resp BP Pulse Ox 37.0 C 89 18 159/95 H 98 03/25/18 11:38 03/25/18 11:38 03/25/18 11:38 03/25/18 11:38 03/25/18 11:38 Laboratory Results 03/25/18 03:09 03/25/18 03:09 03/24/18 03/25/18 03/26/18 05:59 05:59 05:59 Intake Total 398 1070 Output Total 250 425 150 Balance 148 645 -150 - Physical Exam Constitutional: no apparent distress Eyes: PERRL Ears, Nose, Mouth, Throat: moist mucous membranes, hearing normal Cardiovascular: regular rate and rhythym, No edema Respiratory: no respiratory distress, no rales or rhonchi, clear to auscultation Gastrointestinal: normoactive bowel sounds, soft, non-tender abdomen Skin: warm Neurologic: AAOx3 Psychiatric: interacting appropriately, not anxious, not encephalopathic Lymph, Heme, Immunologic: No petechiae ICD10 Worksheet Patient Problems: Problems Problem Status Onset ESRD (end stage renal disease) Acute Hypertensive urgency Acute Acute pancreatitis Acute Colitis Acute ESRD needing dialysis Acute Hypertension Acute Hypertensive encephalopathy Acute Renal failure Acute
--- NOTE | 2018-03-25 13:48 | SOAPPROG ---
SOAP Progress Note Assessment/Plan: Assessment: ESRD HTN, bp better overall difficulty with med compliance homeless Plan: HD today next HD on Friday dismiss when OK with others 03/25/18 13:38 Subjective: tired up and around no nausea vomiting or pain Objective: Vital Signs Temp Pulse Resp BP Pulse Ox 37.0 C 89 18 159/95 H 98 03/25/18 11:38 03/25/18 11:38 03/25/18 11:38 03/25/18 11:38 03/25/18 11:38 Laboratory Results 03/25/18 03:09 03/25/18 03:09 03/24/18 03/25/18 03/26/18 05:59 05:59 05:59 Intake Total 398 1070 Output Total 250 425 150 Balance 148 645 -150 Physical Exam - Physical Exam General Appearance: alert Respiratory: lungs clear Cardiac/Chest: regular rate, rhythm Abdomen: normal bowel sounds, non-tender Skin: warm/dry Neuro/Psych: alert, normal mood/affect, oriented x 3 ICD10 Worksheet Patient Problems: Problems Problem Status Onset ESRD (end stage renal disease) Acute Hypertensive urgency Acute Acute pancreatitis Acute Colitis Acute ESRD needing dialysis Acute Hypertension Acute Hypertensive encephalopathy Acute Renal failure Acute
--- NOTE | 2018-03-25 16:15 | ASMTCMCOM ---
CM Note CM Note Notes: Pt is being discharged today. CM made pt an appointment at [facility] with Adrianne Arora DO at 03/30/18 10:45AM. CM provided pt w/ taxi voucher since pt won't be finished with dialysis until 6PM. CM reserved a retirement bed for pt. CM provided pt w/ the warming retirement that is opened tonight. CM notified [facility] of the d/c. No other needs at this time. CM available for changes. Plan: Independent Date Signed: 03/25/2018 04:14 PM Electronically Signed By:JOSHUA Ndiaye
--- NOTE | 2018-03-25 16:16 | ASMTLACE ---
LACE Length of stay for Answers: 2 days current admission Acuity / Level of Answers: No Care: Did the patient have an inpatient admission? Comorbidities - select Answers: Moderate or severe liver all that apply or renal disease Other Notes: HTN # of Emergency department Answers: 5-8 visits in the last 6 months Score: 11 Date Signed: 03/25/2018 04:15 PM Electronically Signed By:JOSHUA Ndiaye
[2018-03-25 16:25] VITALS: BP 206/111
--- NOTE | 2018-03-25 16:44 | PDDCSUM ---
Discharge Summary Discharge Summary: 27yo homeless M with hx of ESRD and chronic uncontrolled HTN presenting with hypertensive emergency. He was treated with a Cardene drip and this was discontinued on 03/24. BP is improved. He is now ready for discharge. He will f/u with his PCP next week He will get HD on // 1. Hypertensive emergency: As evidenced by headache and mild troponin elevation. Patient has demonstrated that he is unable to take TID medications. - Renal consulted - Started atenolol 25 daily -Started losartan 50 daily - Continue amlodipine 10, clonidine patch. - Off nicardipine gtt 2. ESRD: Related to FSGS, on HD for last year. LUE AV fistula - Got HD today -Gets HD on / 3. Anemia: Due to kidney disease. Stable. 4. Mild MR: Noted on TTE. Serial follow up. 5. Psychosocial: He is homeless and seems to have minimal insight into the severity of his disease. He does not have significant plans to seek skilled nursing. CM involved, trying to see if he can get bed at [facility]. He has refused [facility] in [place] in the past. Exam: SEE PROGRESS NOTE FROM TODAY MEDS: see med rec f/u: per above total time spent on d/c is 35 mins
== END 2018-03-25 19:50 | disposition home or self-care (01) | DRG 199 ==
LOC: EDUNIT# → F2W 21:17 → OBSVTOIN 21:44
PROVIDERS: ADMIT Internal Medicine; ATTEND Family Medicine
PROC: 5A1D70Z Performance of Urinary Filtration, Intermittent, Less than 6 Hours Per Day (ICD-10-PCS; principal; 2018-03-25)
DX: I16.1 Hypertensive emergency (principal); I12.0 Hypertensive chronic kidney disease with stage 5 chronic kidney disease or end stage renal disease; N18.6 End stage renal disease; R51 Headache; D63.1 Anemia in chronic kidney disease; I34.0 Nonrheumatic mitral (valve) insufficiency; Z99.2 Dependence on renal dialysis; Z59.0 Homelessness
CPT/HCPCS: 96374; G0472; J0360

== ENCOUNTER 2018-04-10 18:28 | Emergency (ER) | payer MEDICAID ==
--- NOTE | 2018-04-10 18:32 | EDPHY ---
HPI/HX/ROS/PE/MDM Narrative: CHIEF COMPLAINT: Hypertension after dialysis HPI: The patient is a 27 y/o male with a history of end stage renal disease and hypertension arriving via EMS for hypertension after dialysis today. On he was seen in the emergency department for similar symptoms. At this time his BP was 232/148 and he was admitted on a Cardene drip. Per EMS, the patient was 63 kilos and a BP of 250/160 at the start of dialysis and 60 kilos at the end today. When EMS arrived, they noted that the patient had a BP of 232/150 while en route to the emergency department. The patient is somnolent and only complaining of a headache. He is non-compliant with his hypertensive medications. No chest pain, shortness of breath, abdominal pain, urinary or bowel complaints, numbness, paresthesias, fevers. REVIEW OF SYSTEMS: Aside from elements discussed in the HPI, a comprehensive 10 system review of systems is otherwise negative. PMH: Hypertension. End stage renal disease. Left forearm AVF placed. SOCIAL HISTORY: Transient. Occasional alcohol use. Light tobacco use. PHYSICAL EXAM: General: Patient is alert, in no acute distress. ENT: Eyes are normal to inspection. ENT inspection normal. Neck: Normal inspection. Full range of motion. Respiratory: No respiratory distress. Breath sounds normal bilaterally. Cardiovascular: Regular rate and rhythm. Strong peripheral pulses. Normal cap refill. Abdomen: The abdomen is nontender to palpation. There are no peritoneal signs. There are normal bowel sounds. Back: Normal to inspection. No tenderness to palpation. Skin: Normal color. No rash. Warm and dry. Extremities: Normal appearance. Full range of motion. Neuro: Oriented x3. Normal motor function. Normal sensory function. ED Course: 1845: Reassessed patient, he states that his head and "whole body" hurts. He initially states that the he did not take any of his hypertensive medications today, but then later states that he thinks he took his medication. 1908: EKG was ordered and interpreted by myself. Please see Xpreso system for official reading. 1933: 10mg PO Amlodipine, 50mg PO Atenolol, and 0.2mg PO Clonidine administered as patient is still hypertensive. 2139: Patient's repeat blood pressure is 204/134. He is safe to be discharged home and does not require admission at this time. Return precautions provided; patient is comfortable with this plan. MDM: This patient presents with very elevated BP in the setting of frequent ED visits for same and continued medication non-compliance. I see no evidence for end-organ damage at this time and patient appears quite comfortable. I have treated him with his standard oral anti-hypertensive regimen and his blood pressure has declined significantly, although still elevated. I do not think he requires admission to the hospital at this point. I see no signs of hypertensive emergency. - Data Points Laboratory Results: Laboratory Results 04/10/18 19:15 04/10/18 19:15 04/10/18 04/10/18 04/10/18 19:32 19:15 19:15 WBC RBC Hgb Hct MCV MCH MCHC RDW Plt Count MPV Neut % (Auto) Lymph % (Auto) [place] % (Auto) Eos % (Auto) Baso % (Auto) Nucleat RBC Rel Count Absolute Neuts (auto) Absolute Lymphs (auto) Absolute Monos (auto) Absolute Eos (auto) Absolute Basos (auto) Absolute Nucleated RBC Immature Gran % Immature Gran # Sodium 137 mEq/L mEq/L (135-145) Potassium 4.0 mEq/L mEq/L (3.5-5.2) Chloride 99 mEq/L mEq/L (97-110) Carbon Dioxide 26 mEq/l mEq/l (22-31) Anion Gap 12 mEq/L mEq/L (6-14) BUN 23 mg/dL mg/dL (7-23) Creatinine 3.5 mg/dL H mg/dL (0.7-1.3) Estimated GFR 21 Glucose 109 mg/dL H mg/dL (70-100) Calcium 8.5 mg/dL mg/dL (8.5-10.4) POC Troponin I 0.05 ng/mL ng/mL TNP (0.00-0.08) 04/10/18 19:15 WBC 9.61 10^3/uL H 10^3/uL (3.80-9.50) RBC 4.24 10^6/uL L 10^6/uL (4.40-6.38) Hgb 11.8 g/dL L g/dL (13.7-17.5) Hct 33.6 % L % (40.0-51.0) MCV 79.2 fL L fL (81.5-99.8) MCH 27.8 pg L pg (27.9-34.1) MCHC 35.1 g/dL g/dL (32.4-36.7) RDW 15.1 % % (11.5-15.2) Plt Count 101 10^3/uL L 10^3/uL (150-400) MPV TNP Neut % (Auto) 85.3 % H % (39.3-74.2) Lymph % (Auto) 9.1 % L % (15.0-45.0) [place] % (Auto) 4.4 % L % (4.5-13.0) Eos % (Auto) 0.4 % L % (0.6-7.6) Baso % (Auto) 0.4 % % (0.3-1.7) Nucleat RBC Rel Count 0.0 % % (0.0-0.2) Absolute Neuts (auto) 8.20 10^3/uL H 10^3/uL (1.70-6.50) Absolute Lymphs (auto) 0.87 10^3/uL L 10^3/uL (1.00-3.00) Absolute Monos (auto) 0.42 10^3/uL 10^3/uL (0.30-0.80) Absolute Eos (auto) 0.04 10^3/uL 10^3/uL (0.03-0.40) Absolute Basos (auto) 0.04 10^3/uL 10^3/uL (0.02-0.10) Absolute Nucleated RBC 0.00 10^3/uL 10^3/uL (0-0.01) Immature Gran % 0.4 % % (0.0-1.1) Immature Gran # 0.04 10^3/uL 10^3/uL (0.00-0.10) Sodium Potassium Chloride Carbon Dioxide Anion Gap BUN Creatinine Estimated GFR Glucose Calcium POC Troponin I Medications Given: Discontinued Medications Amlodipine Besylate (Norvasc) 10 mg PO EDNOW ONE Stop: 04/10/18 19:34 Last Admin: 04/10/18 19:43 Dose: 10 mg Atenolol (Tenormin) 50 mg PO EDNOW ONE Stop: 12/07/18 19:35 Last Admin: 04/10/18 19:49 Dose: 50 mg Clonidine (Catapres) 0.2 mg PO EDNOW ONE Stop: 04/10/18 19:35 Last Admin: 04/10/18 19:43 Dose: 0.2 mg Point of Care Test Results: Chemistry 04/10/18 04/10/18 19:32 19:15 POC Troponin I 0.05 ng/mL ng/mL TNP (0.00-0.08) General Time Seen by Provider: 04/10/18 18:30 Initial Vital Signs: Initial Vital Signs Temperature (C) 36.7 C 04/10/18 18:35 Heart Rate 91 04/10/18 18:35 Respiratory Rate 20 04/10/18 18:35 Blood Pressure 231/147 H 04/10/18 18:35 O2 Sat (%) 98 04/10/18 18:35 O2 Delivery Mode Room Air Allergies/Adverse Reactions: No Known Allergies Allergy (Verified 03/23/18 19:10) Home Medications: Medication Instructions Recorded Atenolol [Tenormin 25 mg (*)] 25 mg PO DAILY #30 tab 03/25/18 Losartan Potassium [Cozaar 50 mg 50 mg PO DAILY #30 tab 03/25/18 (*)] amLODIPine BESYLATE [Norvasc 10 mg 10 mg PO DAILY #30 tab 03/25/18 (*)] clonIDINE [Catapres-Tts (*)] 0.2 mg TD Q7D #5 patch 03/25/18 Departure - Departure Disposition: Home, Routine, Self-Care Clinical Impression: Hypertensive urgency Hypertension Qualifiers: Hypertension type: unspecified Qualified Code(s): I10 - Essential (primary) hypertension Condition: Good Instructions: Hypertensive Crisis (ED), Hypertension (ED) Additional Instructions: Take your medications as prescribed. Follow-up with your primary doctor within 72 hours. Return to the Emergency Department for fever, chest pain, shortness of breath, increasing pain or other worsening of condition. Referrals: [facility],. [Clinic] - As per Instructions Report Scribed for: Feliciano Jacinto Report Scribed by: Brandee Olmos Date of Report: 04/10/18 Time of Report: 18:32 Physician Review and Approval Statement: Portions of this note were transcribed by an ED scribe. I personally performed the history, physical exam, and medical decision making; and confirm the accuracy of the information in the transcribed note.
[2018-04-10] MEDS ORDERED: amLODIPine BESYLATE 5 MG TAB PO ONE (19:33)
[2018-04-10] MEDS ORDERED: ATENOLOL 50 MG TAB PO ONE (19:34)
[2018-04-10 19:36] LABS: PLATELET COUNT 101 10^3/uL (150-400)
[2018-04-10 21:38] VITALS: BP 204/134
--- NOTE | 2018-04-10 22:40 | CPEKG ---
Test Reason : OPEN Blood Pressure : / mmHG Vent. Rate : 096 BPM Atrial Rate : 097 BPM P-R Int : 154 ms QRS Dur : 087 ms QT Int : 425 ms P-R-T Axes : 049 074 062 degrees QTc Int : 538 ms Sinus rhythm LVH by voltage ST elev, probable normal early repol pattern Prolonged QT interval Confirmed by Feliciano Jacinto ([id number] on 04/10/2018 10:40:02 PM Referred By: Confirmed By:Feliciano Jacinto
== END 2018-04-10 21:59 | disposition home or self-care (01) ==
LOC: EDUNIT#
DX: I16.0 Hypertensive urgency (principal); Z99.2 Dependence on renal dialysis
CPT/HCPCS: 84484-PO

== ENCOUNTER 2018-04-19 07:36 | Inpatient (IN) | payer MEDICAID ==
--- NOTE | 2018-04-19 07:43 | EDPHY ---
H & P Time Seen by Provider: 04/19/18 07:39 HPI/ROS: CHIEF COMPLAINT: Headache, hypertension HISTORY OF PRESENT ILLNESS: Patient presents the ED with complaints of acute headache and hypertension. He has a history of end-stage renal disease. The patient is on dialysis. He has a history of several hospitalizations for hypertensive emergency. The patient had been on 4 medications for management of his hypertension during hospitalization in March. The patient tells me that his doctor switched him back to labetalol only. The patient reportedly has not been taking his regular dose of labetalol because it "disagrees with my stomach." Aside from headache, the patient denies any acute numbness or weakness. The patient denies chest pain or shortness of breath. The patient does report mild nausea. The patient reports that he was last dialyzed on Friday. REVIEW OF SYSTEMS: A comprehensive 10 point review of systems is otherwise negative aside from elements mentioned in the history of present illness. Source: Patient Exam Limitations: No limitations - Medical/Surgical History Hx Asthma: No Hx Chronic Respiratory Disease: No Hx Diabetes: No Hx Cardiac Disease: No Hx Renal Disease: Yes Hx Cirrhosis: No Hx Alcoholism: No Hx HIV/AIDS: No Hx Splenectomy or Spleen Trauma: No Other PMH: HTN, ESRD, eye surgery, dialysis, wisdom teeth out - Social History Smoking Status: Light smoker - Physical Exam Exam: General Appearance: Alert, no distress Eyes: Pupils equal and round no pallor or injection ENT, Mouth: Mucous membranes moist Respiratory: Rales bilateral lung bases Cardiovascular: Regular rate and rhythm Gastrointestinal: Abdomen is soft and nontender, no masses, bowel sounds normal Neurological: 5/5 strength noted all 4 extremities Skin: Warm and dry, no rashes Musculoskeletal: Neck is supple nontender Extremities: symmetrical, full range of motion, AV fistula noted left upper extremity with palpable thrill Constitutional: Initial Vital Signs Temperature (C) 36.6 C 04/19/18 07:41 Heart Rate 81 04/19/18 07:41 Respiratory Rate 16 04/19/18 07:41 Blood Pressure 272/163 H 04/19/18 07:41 O2 Sat (%) 95 04/19/18 07:41 O2 Delivery Mode Room Air Allergies/Adverse Reactions: No Known Allergies Allergy (Verified 03/23/18 19:10) Home Medications: Medication Instructions Recorded Atenolol [Tenormin 25 mg (*)] 25 mg PO DAILY #30 tab 03/25/18 Losartan Potassium [Cozaar 50 mg 50 mg PO DAILY #30 tab 03/25/18 (*)] amLODIPine BESYLATE [Norvasc 10 mg 10 mg PO DAILY #30 tab 03/25/18 (*)] clonIDINE [Catapres-Tts (*)] 0.2 mg TD Q7D #5 patch 03/25/18 Medical Decision Making - Diagnostics EKG Interpretation: EKG: Complete interpretation has been separately recorded in the [employer] archive. Summary impression: Sinus rhythm, rate 95 ED Course/Re-evaluation: I reviewed the patient's past medical records including the discharge summary from his most recent hospitalization which reported the following medications: Amlodipine, Catapres, losartan, atenolol. The patient was started on nicardipine drip in the emergency department. The patient's EKG demonstrates no evidence of ischemia. The patient is noted to have no evidence of hyperkalemia. He is not uremic clinically. Critical Care Time: Critical care time exclusive of procedures and exclusive of the PA's time was 35 minutes, performed by myself, Dipesh David MD. Patient presents to the ED with hypertensive emergency with headache and markedly elevated systolic blood pressure. The patient was started on nicardipine drip and will be admitted to the intensive care unit. Organ system at risk is [employer]LECT[employer]STRUMENT[employer]PERVISOR. - Data Points Laboratory Results: Laboratory Results 04/19/18 07:30 04/19/18 07:30 04/19/18 04/19/18 07:30 07:30 WBC 12.11 10^3/uL H 10^3/uL (3.80-9.50) RBC 4.28 10^6/uL L 10^6/uL (4.40-6.38) Hgb 11.8 g/dL L g/dL (13.7-17.5) Hct 34.0 % L % (40.0-51.0) MCV 79.4 fL L fL (81.5-99.8) MCH 27.6 pg L pg (27.9-34.1) MCHC 34.7 g/dL g/dL (32.4-36.7) RDW 14.9 % % (11.5-15.2) Plt Count 80 10^3/uL L 10^3/uL (150-400) MPV TNP Neut % (Auto) 82.8 % H % (39.3-74.2) Lymph % (Auto) 10.4 % L % (15.0-45.0) Hudspeth % (Auto) 4.0 % L % (4.5-13.0) Eos % (Auto) 2.0 % % (0.6-7.6) Baso % (Auto) 0.5 % % (0.3-1.7) Nucleat RBC Rel Count 0.0 % % (0.0-0.2) Absolute Neuts (auto) 10.02 10^3/uL H 10^3/uL (1.70-6.50) Absolute Lymphs (auto) 1.26 10^3/uL 10^3/uL (1.00-3.00) Absolute Monos (auto) 0.49 10^3/uL 10^3/uL (0.30-0.80) Absolute Eos (auto) 0.24 10^3/uL 10^3/uL (0.03-0.40) Absolute Basos (auto) 0.06 10^3/uL 10^3/uL (0.02-0.10) Absolute Nucleated RBC 0.00 10^3/uL 10^3/uL (0-0.01) Immature Gran % 0.3 % % (0.0-1.1) Immature Gran # 0.04 10^3/uL 10^3/uL (0.00-0.10) Sodium 138 mEq/L mEq/L (135-145) Potassium 3.9 mEq/L mEq/L (3.5-5.2) Chloride 99 mEq/L mEq/L (97-110) Carbon Dioxide 26 mEq/l mEq/l (22-31) Anion Gap 13 mEq/L mEq/L (6-14) BUN 50 mg/dL H mg/dL (7-23) Creatinine 6.1 mg/dL H mg/dL (0.7-1.3) Estimated GFR 11 Glucose 140 mg/dL H mg/dL (70-100) Calcium 7.7 mg/dL L mg/dL (8.5-10.4) Medications Given: Nicardipine/Sodium Chloride (Cardene 0.1 Mg/Ml (Premix)) 200 mls @ 0 mls/hr IV CONT SUSAN; Titrate PRN Reason: Protocol Stop: 10/16/18 07:59 Last Admin: 04/19/18 07:52 Dose: 200 mls Departure - Departure Disposition: [facility] Inpatient Acute Clinical Impression: Hypertensive emergency, ESRD needing dialysis Condition: Critical
[2018-04-19] MEDS ORDERED: niCARdipine/NACL 200 ML IV SCH (08:00)
[2018-04-19 08:14] LABS: PLATELET COUNT 80 10^3/uL (150-400)
--- NOTE | 2018-04-19 09:15 | CPEKG ---
Test Reason : OPEN Blood Pressure : / mmHG Vent. Rate : 095 BPM Atrial Rate : 097 BPM P-R Int : 160 ms QRS Dur : 088 ms QT Int : 430 ms P-R-T Axes : 044 052 053 degrees QTc Int : 541 ms Sinus rhythm Borderline ST elevation, anterior leads Prolonged QT interval Confirmed by Dipesh David ([id number]) on 04/19/2018 9:15:25 AM Referred By: Confirmed By:Dipesh David
[2018-04-19] MEDS ORDERED: ONDANSETRON DISINTEGRATING 4 MG TAB PO PRN (09:25)
[2018-04-19] MEDS ORDERED: ONDANSETRON 4 MG/2 ML VIAL IVP PRN (09:25)
--- NOTE | 2018-04-19 10:38 | PDCONSULT ---
Mid Wife Note: Assessment/Plan: ESRD: on HD MWF. - Will plan on HD tomorrow per routine. HTN urgency: pt is not taking his medications at home for a variety of reasons, has been tried on multiple regimens including (but not limited to) amlodipine, losartan, oral clonidine, clonidine patch, hydralazine, labetalol. - Pt now on nicardipine ggt. - Would transition to oral regimen to include losartan, nifedipine and losartan. - Could also consider reintroducing clonidine patch tomorrow depending on his BP. - Would consider drug test. PADMAJA: will check phos with am labs. Anemia: hgb 11.8, no need for epo. Thank you for the interesting consult. Nephrology will continue to follow, please call if you have any additional questions or concerns. H & P Stated Complaint: high blood pressure/ BYNUM Time Seen by Provider: 04/19/18 07:39 HPI/ROS: HPI: Mr. Crook is a 27 yo M with h/o FSGS, ESRD on HD MWF at [facility] under Dr. Robles, and uncontrolled HTN who presents with BYNUM and hypertensive urgency. He has had multiple hospitalizations for this, is put on oral regimens that bring his BP down but he does not seem to continue to take these. Some medications he feels make him "sick," and others he feels just do not work. He states that all he is taking for his BP at this time is labetalol. He was dialyzed on Friday per routine. ROS: positive per HPI, rest of 10-point ROS negative Source: Patient - Personal History Current Tetanus/Diphtheria Vaccine: Unsure Current Tetanus Diphtheria and Acellular Pertussis (TDAP): Unsure - Medical/Surgical History Hx Asthma: No Hx Chronic Respiratory Disease: No Hx Diabetes: No Hx Cardiac Disease: No Hx Renal Disease: Yes Hx Cirrhosis: No Hx Alcoholism: No Hx HIV/AIDS: No Hx Splenectomy or Spleen Trauma: No Other PMH: HTN, ESRD, eye surgery, dialysis, wisdom teeth out - Family History Significant Family History: No pertinent family hx - Social History Smoking Status: Light smoker - Physical Exam Exam: General: alert and oriented, mild distress Eyes: EOMI, PERRL OP: Clear, MMM Neck: supple, no thyromegaly CV: RRR, no edema BLE Resp: CTA bilat, nonlabored respirations on RA Abd: Soft, NT/ND Neuro: CN II-XII grossly intact, no asterixis Psych: cooperative, appropriate mood and affect Skin: C/D/I, no rash Access: LUE AVF with thrill and bruit appreciated Constitutional: Initial Vital Signs Temperature (C) 36.6 C 04/19/18 07:41 Heart Rate 81 04/19/18 07:41 Respiratory Rate 16 04/19/18 07:41 Blood Pressure 272/163 H 04/19/18 07:41 O2 Sat (%) 95 04/19/18 07:41 O2 Delivery Mode Room Air Allergies/Adverse Reactions: No Known Allergies Allergy (Verified 03/23/18 19:10) Home Medications: Medication Instructions Recorded Labetalol HCl [Trandate 200 mg (*)] 600 mg PO BID 04/19/18 Lab and Imaging 04/19/18 07:30 04/19/18 07:30 WBC 12.11 10^3/uL (3.80-9.50) H 04/19/18 07:30 RBC 4.28 10^6/uL (4.40-6.38) L 04/19/18 07:30 Hgb 11.8 g/dL (13.7-17.5) L 04/19/18 07:30 Hct 34.0 % (40.0-51.0) L 04/19/18 07:30 MCV 79.4 fL (81.5-99.8) L 04/19/18 07:30 MCH 27.6 pg (27.9-34.1) L 04/19/18 07:30 MCHC 34.7 g/dL (32.4-36.7) 04/19/18 07:30 RDW 14.9 % (11.5-15.2) 04/19/18 07:30 Plt Count 80 10^3/uL (150-400) L 04/19/18 07:30 MPV TNP 04/19/18 07:30 Neut % (Auto) 82.8 % (39.3-74.2) H 04/19/18 07:30 Lymph % (Auto) 10.4 % (15.0-45.0) L 04/19/18 07:30 Twiggs % (Auto) 4.0 % (4.5-13.0) L 04/19/18 07:30 Eos % (Auto) 2.0 % (0.6-7.6) 04/19/18 07:30 Baso % (Auto) 0.5 % (0.3-1.7) 04/19/18 07:30 Nucleat RBC Rel Count 0.0 % (0.0-0.2) 04/19/18 07:30 Absolute Neuts (auto) 10.02 10^3/uL (1.70-6.50) H 04/19/18 07:30 Absolute Lymphs (auto) 1.26 10^3/uL (1.00-3.00) 04/19/18 07:30 Absolute Monos (auto) 0.49 10^3/uL (0.30-0.80) 04/19/18 07:30 Absolute Eos (auto) 0.24 10^3/uL (0.03-0.40) 04/19/18 07:30 Absolute Basos (auto) 0.06 10^3/uL (0.02-0.10) 04/19/18 07:30 Absolute Nucleated RBC 0.00 10^3/uL (0-0.01) 04/19/18 07:30 Immature Gran % 0.3 % (0.0-1.1) 04/19/18 07:30 Immature Gran # 0.04 10^3/uL (0.00-0.10) 04/19/18 07:30 Sodium 138 mEq/L (135-145) 04/19/18 07:30 Potassium 3.9 mEq/L (3.5-5.2) 04/19/18 07:30 Chloride 99 mEq/L (97-110) 04/19/18 07:30 Carbon Dioxide 26 mEq/l (22-31) 04/19/18 07:30 Anion Gap 13 mEq/L (6-14) 04/19/18 07:30 BUN 50 mg/dL (7-23) H 04/19/18 07:30 Creatinine 6.1 mg/dL (0.7-1.3) H 04/19/18 07:30 Estimated GFR 11 04/19/18 07:30 Glucose 140 mg/dL (70-100) H 04/19/18 07:30 Calcium 7.7 mg/dL (8.5-10.4) L 04/19/18 07:30
[2018-04-19] MEDS ORDERED: LABETALOL HCL 100 MG TAB PO ONE (11:17)
[2018-04-19] MEDS ORDERED: LABETALOL HCL 200 MG TAB ONE (11:18)
[2018-04-19] MEDS ORDERED: LOSARTAN POTASSIUM 50 MG TAB ONE (11:19)
--- NOTE | 2018-04-19 11:22 | ASMTLACE ---
LUIS DANIEL Acuity / Level of Answers: Yes Care: Did the patient have an inpatient admission? Comorbidities - select Answers: Moderate or severe liver all that apply or renal disease Other Notes: FSGS, ESRD (on HD),uncontrolled HTN, # of Emergency department Answers: 5-8 visits in the last 6 months Social determinants Answers: Homelessness (street, senior care) Lack of community resources and/or lack of social support (no pcp, lives alone, transportation, livia d) Score: 19 Date Signed: 04/19/2018 11:21 AM Electronically Signed By:Rosanne Hernandes RN
[2018-04-19] MEDS ORDERED: LOSARTAN POTASSIUM 50 MG TAB PO SCH (11:30)
--- NOTE | 2018-04-19 11:30 | PDGENHP ---
History and Physical - Chief Complaint headache, elevated BP - History of Present Illness 27 yo homeless male with h/o ESRD on dialysis and severe hypertension presents to ED with headache and elevated blood pressure. He was admitted less than one month ago with hypertensive emergency and discharged with clonidine patch, atenolol 25 mg daily, losartan 50 mg daily and amlodipine 10 mg daily. He states he has not been able to adhere to this regimen. His enroller attempted to simplify his regimen and he was started on labetalol 600 mg twice daily as single agent therapy. He says he doesn't tolerate the Labetalol with upset stomach. He also notes inability to adhere to a twice daily medication regimen and asks for a once daily medication. He denies CP or SOB. He denies weight gain. No N/V. His headache is significantly improved since arrival. He denies facial droop, speech difficulty , or focal weakness. [facility] In the ED, he was started on a cardene drip and is admitted to the hospital for further management. History Information - Allergies/Home Medication List Allergies/Adverse Reactions: No Known Allergies Allergy (Verified 03/23/18 19:10) Home Medications: Labetalol HCl [Trandate 200 mg (*)] 600 mg PO BID 04/19/18 [Last Taken 04/17/18] I have personally reviewed and updated: family history, medical history, social history, surgical history - Past Medical History hypertension Additional medical history: FSGS. ESRD on HD MWF. benign essential HTN - Surgical History Reports: no pertinent surgical hx Additional surgical history: left arm AVF. - Family History Positive for: hypertension. 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) Review of Systems Review of Systems: ROS: 10pt was reviewed & negative except for what was stated in HPI & below Physical Exam Physical Exam: Temp Pulse Resp BP Pulse Ox 36.8 C 122 H 20 202/108 H 98 04/19/18 11:11 04/19/18 11:27 04/19/18 11:11 04/19/18 11:27 04/19/18 11:11 Constitutional: no apparent distress Eyes: PERRL Ears, Nose, Mouth, Throat: moist mucous membranes Cardiovascular: regular rate and rhythym, systolic murmur Respiratory: no respiratory distress, clear to auscultation Gastrointestinal: normoactive bowel sounds, soft, non-tender abdomen Skin: warm Musculoskeletal: full muscle strength Neurologic: AAOx3, other (no facial asymmetry, speech fluent, no focal weakness) Psychiatric: interacting appropriately Lab Data & Imaging Review 04/19/18 07:30 04/19/18 07:30 WBC 12.11 10^3/uL (3.80-9.50) H 04/19/18 07:30 RBC 4.28 10^6/uL (4.40-6.38) L 04/19/18 07:30 Hgb 11.8 g/dL (13.7-17.5) L 04/19/18 07:30 Hct 34.0 % (40.0-51.0) L 04/19/18 07:30 MCV 79.4 fL (81.5-99.8) L 04/19/18 07:30 MCH 27.6 pg (27.9-34.1) L 04/19/18 07:30 MCHC 34.7 g/dL (32.4-36.7) 04/19/18 07:30 RDW 14.9 % (11.5-15.2) 04/19/18 07:30 Plt Count 80 10^3/uL (150-400) L 04/19/18 07:30 MPV TNP 04/19/18 07:30 Neut % (Auto) 82.8 % (39.3-74.2) H 04/19/18 07:30 Lymph % (Auto) 10.4 % (15.0-45.0) L 04/19/18 07:30 Elbert % (Auto) 4.0 % (4.5-13.0) L 04/19/18 07:30 Eos % (Auto) 2.0 % (0.6-7.6) 04/19/18 07:30 Baso % (Auto) 0.5 % (0.3-1.7) 04/19/18 07:30 Nucleat RBC Rel Count 0.0 % (0.0-0.2) 04/19/18 07:30 Absolute Neuts (auto) 10.02 10^3/uL (1.70-6.50) H 04/19/18 07:30 Absolute Lymphs (auto) 1.26 10^3/uL (1.00-3.00) 04/19/18 07:30 Absolute Monos (auto) 0.49 10^3/uL (0.30-0.80) 04/19/18 07:30 Absolute Eos (auto) 0.24 10^3/uL (0.03-0.40) 04/19/18 07:30 Absolute Basos (auto) 0.06 10^3/uL (0.02-0.10) 04/19/18 07:30 Absolute Nucleated RBC 0.00 10^3/uL (0-0.01) 04/19/18 07:30 Immature Gran % 0.3 % (0.0-1.1) 04/19/18 07:30 Immature Gran # 0.04 10^3/uL (0.00-0.10) 04/19/18 07:30 Sodium 138 mEq/L (135-145) 04/19/18 07:30 Potassium 3.9 mEq/L (3.5-5.2) 04/19/18 07:30 Chloride 99 mEq/L (97-110) 04/19/18 07:30 Carbon Dioxide 26 mEq/l (22-31) 04/19/18 07:30 Anion Gap 13 mEq/L (6-14) 04/19/18 07:30 BUN 50 mg/dL (7-23) H 04/19/18 07:30 Creatinine 6.1 mg/dL (0.7-1.3) H 04/19/18 07:30 Estimated GFR 11 04/19/18 07:30 Glucose 140 mg/dL (70-100) H 04/19/18 07:30 Calcium 7.7 mg/dL (8.5-10.4) L 04/19/18 07:30 Visualized and Interpreted EKG results: Yes EKG Interpretation: Positive for: other (sinus tac, +LVH) Assessment & Plan Assessment: Hypertensive emergency - presents with headache, SBP 270's. No chest pain or SOB. EKG and recent echo show LVH. Pt doesn't tolerate Labetalol. Suspect underlying renal disease is provoking factor, but probably worth further investigating other secondary causes. 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
[2018-04-19] MEDS ORDERED: METOPROLOL SUCCINATE XR 100 MG TAB PO SCH (11:45)
[2018-04-19] MEDS: METOPROLOL TARTRATE 50 MG TAB PO SCH ×2 (12:11→21:52)
[2018-04-19] MEDS: niCARdipine/NACL 200 ML IV SCH ×5 (12:12→21:54)
--- NOTE | 2018-04-19 14:24 | PDMN ---
Medical Necessity Medical necessity: Pt meets INPT criteria per MD as of 04/19/18 and [facility] M-197 Hypertension (est. LOS >2 MN for eval/mgmt of hypertensive emergency, SPB 270s, . requiring cardene drip, LVH, ESRD, pericardial effusion, anemia).
--- NOTE | 2018-04-19 16:56 | GCON ---
CRITICAL CARE CONSULTATION HISTORY OF PRESENT ILLNESS: This patient is a 27-year-old male who has a longstanding history of end -stage renal disease and poorly controlled hypertension with noncompliance complicated by homelessnes s. He also has had a remote history of IV drug use and multiple admissions for hypertension emergenc ies. He was admitted today complaining of headache and high blood pressure which was found to be 202 /108. He was started on a Cardene drip and brought to the floor. He gets dialysis on a fairly regul ar basis, but complains of multiple drug intolerances, which is primarily managed by the renal servic e. Since he has been in the intensive care unit, his headache is much better, though he is quite sle epy and denied any chest pain or shortness of breath at this time. REVIEW OF SYSTEMS: Otherwise negative. PAST MEDICAL HISTORY: Includes: 1. End-stage renal disease. 2. Hypertension. 3. Medical noncompliance. 4. Chronic homelessness. 5. Hypertensive emergencies in the past. 6. Remote IV drug use. 7. His end-stage renal disease is thought to be due to focal sclerosing glomerulosclerosis. PAST SURGICAL HISTORY: None. SOCIAL HISTORY: He is currently a nonsmoker. Denies IV drug use. FAMILY HISTORY: Noncontributory at this time, but probably includes hypertension. MEDICATIONS: Include: Lopressor, nicardipine drip, Zofran, Tylenol. PHYSICAL EXAM: VITAL SIGNS: He was afebrile. Blood pressure 170/112, heart rate 104, sinus tachyca rdia, respirations 16, oxygen saturation 99% on room air. GENERAL: He was somnolent, but easily rick usable from sleep and answered questions appropriately, was in no apparent distress. He spoke in ful l sentences without using accessory muscles for breathing. ENT: Pupils equally round and reactive t o light. Nonicteric and noninjected. Mucous membranes are moist without erythema or exudate. NECK: Supple without adenopathy or jugular vein distention. LUNGS: Breath sounds were clear to auscultat ion bilaterally without wheezes, rubs, or rales. HEART: Regular rate and rhythm without murmurs, ru bs, or gallops. ABDOMEN: Soft, nontender, nondistended without hepatosplenomegaly. EXTREMITIES: N o clubbing, cyanosis, or edema. NEUROLOGIC: Nonfocal, including cranial nerves, deep tendon reflexe s. OBJECTIVE DATA: Includes a white count of 12, hematocrit 34, platelets of 80. Basic metabolic panel was significant for creatinine of 6.1, but normal potassium and bicarb. Calcium 7.7. ASSESSMENT AND PLAN: 1. Hypertensive urgency, which is being managed with a Cardene drip which is quite reasonable at [facility] s time. He is having difficulty maintaining his medications due to drug intolerances. Renal will be involved given his renal failure and hopefully will be able to manage this better by resuming at [facility] some of his outpatient oral medications. 2. History of an effusion on a cardiac echo with features they thought were consistent with amyloid. A repeat echo is pending at this time. 3. End-stage renal disease. He should be getting dialysis in the near future. 4. Thrombocytopenia. It is not clear to me the etiology. This may be chronic in nature, though he has been in the normal range in March. May be medication related, and we will review his medicati ons. /[id number]/MODL
[2018-04-19] MEDS ORDERED: LABETALOL HCL 200 MG TAB PO SCH (21:00)
[2018-04-19] MEDS: LOSARTAN POTASSIUM 50 MG TAB PO SCH (21:53)
[2018-04-20 03:12] LABS: HEPATITIS C ANTIBODY TOTAL REACTIVE (NEGATIVE); HIV TYPE 1 AND 2 NEGATIVE (NEGATIVE)
[2018-04-20] MEDS: niCARdipine/NACL 200 ML IV SCH ×8 (06:26→22:00)
[2018-04-20 06:52] LABS: PLATELET COUNT 115 10^3/uL (150-400)
--- NOTE | 2018-04-20 07:50 | SOAPPROG ---
[facility] Progress Note Assessment/Plan: Assessment: #ESRD- [facility] MWF -HD today -TTE to better eval effusion-- may need more frequent HD if felt significant #HTN urgency -nicardipine gtt currently with losartan 50mg and metop 50 -would increase losartan dose if willing. Can switch to labetalol as well. -he reports has failed every BP med and not willing to discuss right now -would consider giving minoxidil with beta gonzalez but need to evaluate this pericardial effusion better (minoxidil can increase this) -volume status ok- no significant edema on exam but UF on HD will likely help #Anemia CKD-Hb at goal, no RERE #MBD of CKD-- phos high, ensure on renal diet, start Ca Acetate binder I discussed with ICU team Heide Portillo MD [facility] pager [phone] 04/20/18 08:10 Subjective: Didn't want to talk to me when I came by as upset that everyone saying he won't take meds. I tried to gently ask him which ones he has tried and he said they all make him sick and he is mad that doctors don't listen and say he doesn't take meds. Wouldn't go over specific meds when I tried as just too upset right now. Objective: Vital Signs Temp Pulse Resp BP Pulse Ox 36.8 C 101 H 20 156/89 H 100 04/20/18 04:00 04/20/18 06:00 04/20/18 05:00 04/20/18 06:00 04/20/18 05:00 Laboratory Results 04/20/18 06:20 04/20/18 06:20 04/19/18 04/20/18 04/21/18 05:59 05:59 05:59 Intake Total 2828 Output Total 720 Balance 2108 Physical Exam - Physical Exam General Appearance: alert, no apparent distress EENT: other (mmm) Neck: supple Respiratory: lungs clear Cardiac/Chest: regular rate, rhythm, other (no rub) Abdomen: normal bowel sounds, non-tender, soft Skin: warm/dry Extremities: other (no edema, AVF +thrill/bruit) Neuro/Psych: alert, oriented x 3, other (agitated) ICD10 Worksheet Patient Problems: Problems Problem Status Onset ESRD needing dialysis Acute Hypertensive emergency Acute Acute pancreatitis Acute Colitis Acute ESRD (end stage renal disease) Acute Hypertension Acute Hypertensive encephalopathy Acute Hypertensive urgency Acute Renal failure Acute
--- NOTE | 2018-04-20 08:33 | HOSPPROG ---
Hospitalist Progress Note Assessment/Plan: Hypertensive emergency - presented with headache, SBP 270's. No chest pain or SOB. EKG and recent echo show LVH. Pt doesn't tolerate Labetalol. Suspect underlying renal disease is provoking factor, no e/o PURVI on u/s yest. Still on Nicardipine. 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 No CP or SOB. No fevers. Objective: Vital Signs Temp Pulse Resp BP Pulse Ox 36.8 C 101 H 20 156/89 H 100 04/20/18 04:00 04/20/18 06:00 04/20/18 05:00 04/20/18 06:00 04/20/18 05:00 Laboratory Results 04/20/18 06:20 04/20/18 06:20 04/19/18 04/20/18 04/21/18 05:59 05:59 05:59 Intake Total 2828 Output Total 720 Balance 2108 - Physical Exam Constitutional: no apparent distress Eyes: PERRL Ears, Nose, Mouth, Throat: moist mucous membranes Cardiovascular: regular rate and rhythym Respiratory: no respiratory distress, clear to auscultation Gastrointestinal: normoactive bowel sounds, soft, non-tender abdomen Skin: warm Musculoskeletal: full muscle strength Neurologic: AAOx3 Psychiatric: interacting appropriately ICD10 Worksheet Patient Problems: Problems Problem Status Onset ESRD needing dialysis Acute Hypertensive emergency Acute Acute pancreatitis Acute Colitis Acute ESRD (end stage renal disease) Acute Hypertension Acute Hypertensive encephalopathy Acute Hypertensive urgency Acute Renal failure Acute
[2018-04-20] MEDS: LOSARTAN POTASSIUM 50 MG TAB PO SCH (09:33)
[2018-04-20] MEDS: METOPROLOL TARTRATE 50 MG TAB PO SCH ×2 (09:34→20:40)
--- NOTE | 2018-04-20 10:21 | ECHO ---
[email or web address] [address] [address] Main: [phone] Fax: Transthoracic Echocardiogram Name: KAILA HALL MR#: [id number] Study Date: 04/20/2018 Study Time: 07:53 AM Date of : 1990 Age: 27 year(s) Height: 167.6 cm (66 in.) Weight: 61.69 kg (136 lb.) BSA: 1.7 m2 Gender: Male Examination: Limited Echo Indication: f/u small pericardial effusion seen 1 month ago Image Quality: Adequate Contrast: Requested by: Queta Coombs BP: 180 mmHg/103 mmHg Heart Rate: Rhythm: Indication: f/u small pericardial effusion seen 1 month ago Procedure Staff Wire Rope Sales Representative: Dinorah Chang [facility] Reading Physician: Marin Morales MD Requesting Provider: Conclusions: Normal size left ventricle. Severe concentric LV hypertrophy. Normal global systolic LV function. The ejection fraction is visually estimated to be 60 %. Trivial mitral valve regurgitation. The trivial to small pericardial effusion appears unchanged since 03/24/18. Measurements: Chambers Valvular Assessment AV/MV Valvular Assessment TV/PV Normal Normal Normal Name Value Range Name Value Range Name Value Range Visual EF: 60 % Continued Measurements: Findings: Left Ventricle: Normal size left ventricle. Severe concentric LV hypertrophy. Normal global systolic LV function. The ejection fraction is visually estimated to be 60 %. No regional wall motion abnormality. Mitral Valve: The mitral valve is normal in appearance and function. Trivial mitral valve regurgitation. No mitral stenosis is present. Aortic Valve: The aortic valve is normal in appearance and function. There is no significant aortic valve regurgitation. No aortic valve stenosis is present. Pericardium: The trivial to small pericardial effusion appears unchanged since 03/24/18. Patient: KAILA HALL Study Date: 04/20/2018 Page 1 of 2 07:53 AM (No Signature Object) Patient: KAILA HALL Study Date: 04/20/2018 Page 2 of 2 07:53 AM [id number]
--- NOTE | 2018-04-20 10:47 | PDINTPN ---
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 Comfortable. Headache well tolerated. Objective: Vital Signs Temp Pulse Resp BP Pulse Ox 36.8 C 109 H 20 162/97 H 100 04/20/18 04:00 04/20/18 09:34 04/20/18 05:00 04/20/18 09:34 04/20/18 05:00 Laboratory Results 04/20/18 06:20 04/20/18 06:20 04/19/18 04/20/18 04/21/18 05:59 05:59 05:59 Intake Total 2828 Output Total 720 Balance 2108 - Time Spent With Patient Time Spent With Patient: 35 min of time spent with patient, over 1/2 involved coordination of care counseling. Case discussed with nursing Physical Exam - Physical Exam General Appearance: alert, no apparent distress EENT: PERRL/EOMI Neck: non-tender Respiratory: chest non-tender, lungs clear, normal breath sounds Cardiac/Chest: normal peripheral pulses, regular rate, rhythm Peripheral Pulses: 2+: carotid (R), carotid (L), femoral (R), femoral (L), dorsalis-pedis (R), dorsalis-pedis (L) Abdomen: normal bowel sounds, non-tender, soft Male Genitalia: deferred Rectal: deferred Skin: normal color, warm/dry Extremities: normal range of motion, non-tender, normal inspection, normal capillary refill Neuro/Psych: alert, oriented x 3 ICD10 Worksheet Patient Problems: Problems Problem Status Onset ESRD needing dialysis Acute Hypertensive emergency Acute Acute pancreatitis Acute Colitis Acute ESRD (end stage renal disease) Acute Hypertension Acute Hypertensive encephalopathy Acute Hypertensive urgency Acute Renal failure Acute
[2018-04-20] MEDS: CALCIUM ACETATE 667 MG CAP PO SCH ×2 (12:27→17:09)
[2018-04-20] MEDS: ACETAMINOPHEN 325 MG TAB PO PRN ×2 (12:27→18:19)
--- NOTE | 2018-04-20 14:20 | ASMTCMCOM ---
CM Note CM Note Notes: Pt presented to the ED via EMS for BYNUM and HTN. Pt admitted for hypertensive emergency, small pericardial effusion. Per chart review, pt has not been taking his antihypertensive medications due to the meds either making him feel sick or him thinking they are not effective. Pt's PMH includes ESRD, FSGS, and uncontrolled benign essential HTN. Pt receives HD on MWF at [facility] ([phone]). This is the pt's 7th ED visit and 4th admission in the past year. Please see 03/25, 03/24, 11/07/17 CM Reports and 02/10/18 CM DC Summary for additional background Pt is homeless and has been in [place] since 01/2017. Pt was referred to the [facility] ([facility]) but has recently been barred from staying there, so he has been staying at the [facility] (when [facility] is offered/open). Per past CM notes, pt reports that he had been staying at [facility] but was "kicked out" due to not participating in their Ready to Work program. Pt is on disability and receives SSI checks. Per the Spiritual Services Note on 02/06/18, pt has been homeless since he was 19 yrs old when he decided to leave home. Pt also reported that a social worker psychiatric at [facility] has spoken to him about his housing needs and about him getting on a kidney transplant list; it is not clear what their current involvement is or what pt's status is re: transplant list. Per past CM Reports, pt has expressed a desire to return to [place], [place] (where he has lived before). Per 03/24 note, pt was unable to procure funds for a bus ticket to [place] in February as he had hoped. Also on 03/24 & 02/06, pt was offered a medical respite bed in [place] but declined. Pt's mother, Surekha ([phone]) and father are and live in [place]. Pt has also reported having friends in [place]. Pt has been referred to [facility] (was provided an appt w/Adrianne Arora on 03/30/18). Pt has also been provided info on [facility] and [facility] in order for him to get to and from [facility] for HD treatments. Exact DC needs TBD; but anticipate pt to stabilize and DC to streets or SWS longterm w/scheduled outpatient followup (KARINA, JORGEA, Yazan coordination (social worker psychiatric involvement?). CM to follow. Date Signed: 04/19/2018 12:18 PM Electronically Signed By:Rosanne Hernandes RN
[2018-04-20] MEDS ORDERED: LOSARTAN POTASSIUM 50 MG TAB PO ONE (16:53)
[2018-04-21] MEDS: niCARdipine/NACL 200 ML IV SCH ×6 (02:00→20:59)
--- NOTE | 2018-04-21 06:08 | CPEKG ---
Test Reason : tachycardia Blood Pressure : / mmHG Vent. Rate : 118 BPM Atrial Rate : 119 BPM P-R Int : 145 ms QRS Dur : 083 ms QT Int : 353 ms P-R-T Axes : 084 066 032 degrees QTc Int : 495 ms Sinus tachycardia Probable left ventricular hypertrophy ST elev, probable normal early repol pattern Prolonged QT interval Confirmed by Kalyan Manzano ([id number]) on 04/21/2018 6:08:02 AM Referred By: Confirmed By:Kalyan Manzano
--- NOTE | 2018-04-21 08:07 | SOAPPROG ---
SOAP Progress Note Assessment/Plan: Assessment: #ESRD- [facility] MWF -HD again tomorrow if still here -TTE with only trivial pericardial effusion on repeat TTE #HTN urgency -UTox neg other than THC -likely med non-compliance as precipitating event, trying to find once a day po regimen for him -nicardipine gtt weaning off- hoping to be off this am -losartan 100mg, metop 100, clonidine 0.2mg patch-- reviewed need not to miss any doses -volume status ok- no significant edema on exam #Anemia CKD-Hb at goal, no RERE #MBD of CKD-- phos high, ensure on renal diet, started Ca Acetate binder-- better today #homelessness- SW to meet with him and review available resources #hep C Ab- viral load pending I discussed with ICU team Heide Portillo MD [facility] pager [phone] 04/21/18 08:42 Subjective: Feels tired, upset that machines beeped last night and didn't sleep as well. Denies BYNUM, cp, sob. Weaning off cardene gtt. TTE with trivial effusion. HD yesterday, tolerated ok. Objective: Vital Signs Temp Pulse Resp BP Pulse Ox 36.8 C 93 15 160/94 H 95 04/20/18 23:00 04/21/18 07:00 04/21/18 07:00 04/21/18 07:00 04/21/18 07:00 Laboratory Results 04/20/18 06:20 04/21/18 06:20 04/20/18 04/21/18 04/22/18 05:59 05:59 05:59 Intake Total 2828 2081 Output Total 720 160 Balance 2108 1921 Physical Exam - Physical Exam General Appearance: alert, no apparent distress Neck: supple Respiratory: normal breath sounds Cardiac/Chest: regular rate, rhythm, other (no rub) Abdomen: normal bowel sounds, non-tender, soft Extremities: other (no edema, AVF) Neuro/Psych: alert, oriented x 3 ICD10 Worksheet Patient Problems: Problems Problem Status Onset ESRD needing dialysis Acute Hypertensive emergency Acute Acute pancreatitis Acute Colitis Acute ESRD (end stage renal disease) Acute Hypertension Acute Hypertensive encephalopathy Acute Hypertensive urgency Acute Renal failure Acute
[2018-04-21] MEDS: CALCIUM ACETATE 667 MG CAP PO SCH ×3 (08:36→18:00)
[2018-04-21] MEDS: METOPROLOL TARTRATE 50 MG TAB PO SCH ×2 (08:36→21:00)
[2018-04-21] MEDS: LOSARTAN POTASSIUM 50 MG TAB PO SCH (08:36)
--- NOTE | 2018-04-21 09:09 | HOSPPROG ---
Hospitalist Progress Note Assessment/Plan: #ESRD: HD per renal #HTN urgency: Metoprolol, Losartan increased, Clonidine patch. Cardene drip #Anemia of chronic disease: H/H stable #Thrombocytopenia: no active bleeding. #Metabolic bone disease #Homelessness: CM assisting with prison options #HCV: +Ab, PCR pending #Diet: renal #DVT ppx: SCDs #Disp: inpatient admission for hypertensive urgency requiring IV Cardene Critical care time spent: 35 min reviewing notes, labs and discussing plan with pt. Subjective: "no one is helping me. I want to leave" Objective: Vital Signs Temp Pulse Resp BP Pulse Ox 36.8 C 105 H 15 151/80 H 95 04/20/18 23:00 04/21/18 08:36 04/21/18 07:00 04/21/18 08:36 04/21/18 07:00 Laboratory Results 04/20/18 06:20 04/21/18 06:20 04/20/18 04/21/18 04/22/18 05:59 05:59 05:59 Intake Total 2828 2081 Output Total 720 160 Balance 2108 1921 - Time Spent With Patient Time Spent with Patient: greater than 35 minutes Time Spent with Patient: Greater than 35 minutes spent on this patients care, greater than 50% of time spent counseling, educating, and coordinating care regarding the above mentioned plan. - Physical Exam Constitutional: other (agitated, yelling) Eyes: PERRL Ears, Nose, Mouth, Throat: moist mucous membranes Cardiovascular: regular rate and rhythym, No edema Respiratory: no respiratory distress Gastrointestinal: normoactive bowel sounds Genitourinary: No andres in urethra Musculoskeletal: other (fistula with thrill) Neurologic: AAOx3, CN II-XII Intact Psychiatric: agitated ICD10 Worksheet Patient Problems: Problems Problem Status Onset ESRD needing dialysis Acute Hypertensive emergency Acute Acute pancreatitis Acute Colitis Acute ESRD (end stage renal disease) Acute Hypertension Acute Hypertensive encephalopathy Acute Hypertensive urgency Acute Renal failure Acute
--- NOTE | 2018-04-21 09:12 | PDINTPN ---
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 No current complaints. Wishes to go home. Objective: Vital Signs Temp Pulse Resp BP Pulse Ox 36.8 C 105 H 15 151/80 H 95 04/20/18 23:00 04/21/18 08:36 04/21/18 07:00 04/21/18 08:36 04/21/18 07:00 Laboratory Results 04/20/18 06:20 04/21/18 06:20 04/20/18 04/21/18 04/22/18 05:59 05:59 05:59 Intake Total 2828 2081 Output Total 720 160 Balance 2108 1921 - Time Spent With Patient Time Spent With Patient: 35 min of time spent with patient, over 1/2 involved with coordination of care counseling. Case discussed with nursing. Physical Exam - Physical Exam General Appearance: alert, no apparent distress EENT: PERRL/EOMI Neck: non-tender, full range of motion Respiratory: chest non-tender, lungs clear Cardiac/Chest: normal peripheral pulses, regular rate, rhythm Peripheral Pulses: 2+: carotid (R), carotid (L), femoral (R), femoral (L), dorsalis-pedis (R), dorsalis-pedis (L) Abdomen: normal bowel sounds, non-tender, soft Male Genitalia: deferred Rectal: deferred Skin: normal color, warm/dry Extremities: normal range of motion, non-tender, normal inspection, normal capillary refill Neuro/Psych: alert, normal mood/affect, oriented x 3 ICD10 Worksheet Patient Problems: Problems Problem Status Onset ESRD needing dialysis Acute Hypertensive emergency Acute Acute pancreatitis Acute Colitis Acute ESRD (end stage renal disease) Acute Hypertension Acute Hypertensive encephalopathy Acute Hypertensive urgency Acute Renal failure Acute
[2018-04-21] MEDS ORDERED: hydrALAZINE 20 MG/ML VIAL IVP PRN ×2 (12:07→13:35)
--- NOTE | 2018-04-21 14:46 | ASMTCMCOM ---
CM Note CM Note Notes: Patient given Homeless resources for [facility] which he is familar. Patient reports that he has been turned away from [facility] and the [facility] and having difficulty getting to dialysis. The bus doesn't stop there and it's a long walk which is exhausting for him. Being homeless he has to worry about where he's going to find food, work, warmth, etc. Patient also given [facility] [place] info-for Medicaid res. Date Signed: 04/21/2018 02:46 PM Electronically Signed By:Laine Haley LCSW
[2018-04-22] MEDS ORDERED: MELATONIN 3 MG TAB PO PRN (01:20)
[2018-04-22] MEDS: CALCIUM ACETATE 667 MG CAP PO SCH ×3 (07:06→17:19)
[2018-04-22] MEDS: LOSARTAN POTASSIUM 50 MG TAB PO SCH (07:06)
[2018-04-22] MEDS: METOPROLOL TARTRATE 50 MG TAB PO SCH ×2 (07:06→20:50)
--- NOTE | 2018-04-22 08:12 | SOAPPROG ---
SOAP Progress Note Assessment/Plan: Assessment: #ESRD- [facility] MWF -HD today, goal UF 2kg, AVF -TTE with only trivial pericardial effusion on repeat TTE #HTN urgency -UTox neg other than THC -likely med non-compliance as precipitating event, trying to find once a day po regimen for him -nicardipine gtt weaning off -losartan 100mg, metop 100, clonidine 0.2mg patch-- reviewed need not to miss any doses -consider minoxidil but pt unwilling to try as didn't like how he felt on it. Amlodipine less effective but reasonable to add in given once a day dosing, cheaper, and less side effects. -have reviewed dangers of uncontrolled HTN and need to take medications regularly given risk CVA//ME -volume status ok- no significant edema on exam #Anemia CKD-Hb at goal, no RERE #MBD of CKD-- started phoslo but unwilling to continue to take #homelessness- SW to met with him and review available resources #hep C Ab- viral load pending I discussed with ICU team Heide Portillo MD [facility] pager [phone] 04/22/18 08:40 Subjective: Seen on dialysis- using LUE AVF Qb 400, 3.5K/2.5Ca bath, goal UF 2kg. Sleeping and tolerating well. Back on nicardipine gtt overnight- weaning down. BP in 160s when i saw him. Objective: Vital Signs Temp Pulse Resp BP Pulse Ox 37.2 C 85 16 166/93 H 94 04/22/18 04:00 04/22/18 08:00 04/22/18 08:00 04/22/18 08:00 04/22/18 08:00 Laboratory Results 04/20/18 06:20 04/22/18 04:41 04/21/18 04/22/18 04/23/18 05:59 05:59 05:59 Intake Total 3691 2377 Output Total 160 600 150 Balance 1921 1777 -150 Physical Exam - Physical Exam General Appearance: alert, no apparent distress Neck: supple Respiratory: lungs clear Cardiac/Chest: regular rate, rhythm, other (no m/r) Abdomen: normal bowel sounds, non-tender, soft Skin: warm/dry Extremities: other (no edema) Neuro/Psych: other (sleeping but arouses easily and a&o x3 when awake) ICD10 Worksheet Patient Problems: Problems Problem Status Onset ESRD needing dialysis Acute Hypertensive emergency Acute Acute pancreatitis Acute Colitis Acute ESRD (end stage renal disease) Acute Hypertension Acute Hypertensive encephalopathy Acute Hypertensive urgency Acute Renal failure Acute
--- NOTE | 2018-04-22 08:42 | PDINTPN ---
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 Currently on dialysis. Objective: Vital Signs Temp Pulse Resp BP Pulse Ox 37.2 C 85 16 166/93 H 94 04/22/18 04:00 04/22/18 08:00 04/22/18 08:00 04/22/18 08:00 04/22/18 08:00 Laboratory Results 04/20/18 06:20 04/22/18 04:41 04/21/18 04/22/18 04/23/18 05:59 05:59 05:59 Intake Total 2081 2377 Output Total 160 600 150 Balance 1921 1777 -150 - Time Spent With Patient Time Spent With Patient: 35 min of time spent with patient, over 1/2 involved coordination of care or counseling. Case discussed with Nursing and Nephrology Physical Exam - Physical Exam General Appearance: no apparent distress EENT: PERRL/EOMI, normal ENT inspection Neck: non-tender Respiratory: chest non-tender, lungs clear, normal breath sounds Cardiac/Chest: normal peripheral pulses, regular rate, rhythm Peripheral Pulses: 2+: carotid (R), carotid (L), femoral (R), femoral (L), dorsalis-pedis (R), dorsalis-pedis (L) Abdomen: normal bowel sounds, non-tender, soft Male Genitalia: deferred Rectal: deferred Skin: normal color, warm/dry Extremities: normal range of motion, non-tender, normal inspection, normal capillary refill Neuro/Psych: alert, oriented x 3 ICD10 Worksheet Patient Problems: Problems Problem Status Onset ESRD needing dialysis Acute Hypertensive emergency Acute Acute pancreatitis Acute Colitis Acute ESRD (end stage renal disease) Acute Hypertension Acute Hypertensive encephalopathy Acute Hypertensive urgency Acute Renal failure Acute
--- NOTE | 2018-04-22 14:30 | HOSPPROG ---
Hospitalist Progress Note Assessment/Plan: #ESRD: HD MWD, done this morning #HTN urgency: -very difficult to treat. -cont Metoprolol, Losartan ,Clonidine patch. -no improvement with Norvasc; will change this to Hydral 50mg BID (increase to TID if needed). Patient agreeable -d/w Dr. Oro -counseled on risk of CVA/FL if not compliant with home meds #Anemia of chronic disease: H/H stable #Thrombocytopenia: no active bleeding. #Metabolic bone disease: rec PhosLo, but he is refusing #Small pericardial effusion: no e/o tamponade #Homelessness: CM assisting with residential options #HCV: +Ab, PCR pending #Diet: renal #DVT ppx: SCDs #Disp: inpatient admission for hypertensive urgency requiring IV Cardene Critical care time spent: 35 min reviewing notes, labs and discussing plan with pt. Subjective: no BYNUM or CP. HD today Objective: Vital Signs Temp Pulse Resp BP Pulse Ox 37.2 C 104 H 15 168/114 H 94 04/22/18 04:00 04/22/18 13:00 04/22/18 13:00 04/22/18 13:00 04/22/18 13:00 Laboratory Results 04/20/18 06:20 04/22/18 04:41 04/21/18 04/22/18 04/23/18 05:59 05:59 05:59 Intake Total 2081 2377 Output Total 239 610 1631 Balance 1921 1777 -2150 - Time Spent With Patient Time Spent with Patient: greater than 35 minutes Time Spent with Patient: Greater than 35 minutes spent on this patients care, greater than 50% of time spent counseling, educating, and coordinating care regarding the above mentioned plan. - Physical Exam Constitutional: no apparent distress Eyes: PERRL Ears, Nose, Mouth, Throat: moist mucous membranes Cardiovascular: regular rate and rhythym Respiratory: no respiratory distress Gastrointestinal: normoactive bowel sounds Genitourinary: No andres in urethra Skin: warm Musculoskeletal: full muscle strength Neurologic: AAOx3, CN II-XII Intact Psychiatric: interacting appropriately, flat affect ICD10 Worksheet Patient Problems: Problems Problem Status Onset ESRD needing dialysis Acute Hypertensive emergency Acute Acute pancreatitis Acute Colitis Acute ESRD (end stage renal disease) Acute Hypertension Acute Hypertensive encephalopathy Acute Hypertensive urgency Acute Renal failure Acute
--- NOTE | 2018-04-23 08:28 | PDINTPN ---
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 No complaints. Objective: Vital Signs Temp Pulse Resp BP Pulse Ox 37.0 C 83 19 163/106 H 94 04/23/18 04:00 04/23/18 04:00 04/23/18 04:00 04/23/18 04:00 04/22/18 17:00 Laboratory Results 04/20/18 06:20 04/23/18 05:19 04/22/18 04/23/18 04/24/18 05:59 05:59 05:59 Intake Total 2377 1500 Output Total 600 2550 Balance 1777 -1050 Laboratory Results 04/20/18 06:20 04/23/18 05:19 04/23/18 04/20/18 05:19 15:02 Calcium 7.8 mg/dL L mg/dL (8.5 - 10.4) Phosphorus 4.7 mg/dL H mg/dL (2.5 - 4.5) Albumin 3.2 g/dL L g/dL (3.5 - 5.0) Hep C Genotype Amplif 2 H - Time Spent With Patient Time Spent With Patient: 35 min of time spent with patient, over 1/2 involved with coordination of care or counseling. Case discussed with nursing Physical Exam - Physical Exam General Appearance: alert, no apparent distress EENT: PERRL/EOMI Neck: non-tender, full range of motion Respiratory: chest non-tender, lungs clear, normal breath sounds Cardiac/Chest: normal peripheral pulses, regular rate, rhythm Peripheral Pulses: 2+: carotid (R), carotid (L), femoral (R), femoral (L), dorsalis-pedis (R), dorsalis-pedis (L) Abdomen: normal bowel sounds, non-tender, soft Male Genitalia: deferred Rectal: deferred Skin: normal color, warm/dry Extremities: normal range of motion, non-tender, normal inspection, normal capillary refill Neuro/Psych: no motor/sensory deficits, alert, normal mood/affect, oriented x 3 ICD10 Worksheet Patient Problems: Problems Problem Status Onset ESRD needing dialysis Acute Hypertensive emergency Acute Acute pancreatitis Acute Colitis Acute ESRD (end stage renal disease) Acute Hypertension Acute Hypertensive encephalopathy Acute Hypertensive urgency Acute Renal failure Acute
--- NOTE | 2018-04-23 08:39 | SOAPPROG ---
SOAP Progress Note Assessment/Plan: Assessment: ESRD, HD MWF HTN poor control medication noncompliance headache resolved Plan: HD tomorrow will only take meds once daily, need to transition to once daily dosing continue clonidine patch add amlod 10 mg/d add atenolol 50mg daily, dose after HD on days of dialysis continue losartan 100 mg daily 04/23/18 08:30 Subjective: wants to go outside headache resolved no cp sob nausea or vomiting appetite OK slept well last night frustrated about being in hospital Objective: Vital Signs Temp Pulse Resp BP Pulse Ox 37.0 C 83 19 163/106 H 94 04/23/18 04:00 04/23/18 04:00 04/23/18 04:00 04/23/18 04:00 04/22/18 17:00 Laboratory Results 04/20/18 06:20 04/23/18 05:19 04/22/18 04/23/18 04/24/18 05:59 05:59 05:59 Intake Total 2377 1500 Output Total 600 2550 Balance 1777 -1050 Physical Exam - Physical Exam General Appearance: alert Neck: normal inspection Respiratory: No rhonchi, No wheezing Cardiac/Chest: regular rate, rhythm, No edema, No friction rub Abdomen: normal bowel sounds, non-tender, soft Extremities: No swelling Neuro/Psych: alert, normal mood/affect, oriented x 3 ICD10 Worksheet Patient Problems: Problems Problem Status Onset ESRD needing dialysis Acute Hypertensive emergency Acute Acute pancreatitis Acute Colitis Acute ESRD (end stage renal disease) Acute Hypertension Acute Hypertensive encephalopathy Acute Hypertensive urgency Acute Renal failure Acute
[2018-04-23] MEDS: LOSARTAN POTASSIUM 50 MG TAB PO SCH (09:03)
[2018-04-23] MEDS: CALCIUM ACETATE 667 MG CAP PO SCH ×3 (09:04→17:51)
[2018-04-23] MEDS: ATENOLOL 50 MG TAB PO SCH (09:04)
--- NOTE | 2018-04-23 14:13 | HOSPPROG ---
Hospitalist Progress Note Assessment/Plan: #ESRD: HD tomorrow #HTN urgency: -very difficult to treat. Improved with Hydralazine. Cont Losartan, Clonidine, Norvasc. Change to Atenolol. -counseled on risk of CVA/LA if not compliant with home meds #Anemia of chronic disease: H/H stable #Thrombocytopenia: no active bleeding. #Metabolic bone disease: rec PhosLo, but he is refusing #Small pericardial effusion: no e/o tamponade #Homelessness: CM assisting with skilled nursing options and travel to HD #HCV: +Ab, PCR pending #Diet: renal #DVT ppx: SCDs #Disp: inpatient admission for hypertension. DC tomorrow if BP improved . Subjective: no CP. "Want to get out of here" Objective: Vital Signs Temp Pulse Resp BP Pulse Ox 37.1 C 94 21 H 161/89 H 97 04/23/18 11:33 04/23/18 11:33 04/23/18 11:33 04/23/18 11:33 04/23/18 11:33 Laboratory Results 04/20/18 06:20 04/23/18 05:19 04/22/18 04/23/18 04/24/18 05:59 05:59 05:59 Intake Total 2377 1500 Output Total 600 2550 Balance 1777 -1050 - Time Spent With Patient Time Spent with Patient: greater than 35 minutes Time Spent with Patient: Greater than 35 minutes spent on this patients care, greater than 50% of time spent counseling, educating, and coordinating care regarding the above mentioned plan. - Physical Exam Constitutional: no apparent distress Eyes: PERRL Ears, Nose, Mouth, Throat: moist mucous membranes Cardiovascular: regular rate and rhythym, No edema Respiratory: no respiratory distress Gastrointestinal: normoactive bowel sounds Genitourinary: No andres in urethra Musculoskeletal: other (fistula with thrill) Neurologic: AAOx3, CN II-XII Intact Psychiatric: interacting appropriately ICD10 Worksheet Patient Problems: Problems Problem Status Onset ESRD needing dialysis Acute Hypertensive emergency Acute Acute pancreatitis Acute Colitis Acute ESRD (end stage renal disease) Acute Hypertension Acute Hypertensive encephalopathy Acute Hypertensive urgency Acute Renal failure Acute
[2018-04-23] MEDS ORDERED: NS 500 ML IV PRN (15:10)
[2018-04-24 05:17] LABS: PLATELET COUNT 161 10^3/uL (150-400)
--- NOTE | 2018-04-24 09:07 | SOAPPROG ---
[place] Progress Note Assessment/Plan: Assessment: ESRD, HD MWF, seen on HD HTN poor control, better today medication noncompliance, will not take meds more than once daily headache resolved Plan: HD today, going fine will only take meds once daily, need to transition to once daily dosing continue clonidine patch added amlod 10 mg/d added atenolol 50mg daily, dose after HD on days of dialysis continue losartan 100 mg daily overall very difficult situation 04/23/18 08:30 04/24/18 09:04 Subjective: seen on HD slept OK glad to be out of ICU no cp sob nausea or vomiting no more headache appetite good slept OK last night spirits good today Objective: Vital Signs Temp Pulse Resp BP Pulse Ox 37.1 C 99 16 173/104 H 100 04/24/18 03:57 04/24/18 03:57 04/24/18 03:57 04/24/18 03:57 04/24/18 03:57 Laboratory Results 04/24/18 05:04 04/24/18 05:04 04/23/18 04/24/18 04/25/18 05:59 05:59 05:59 Intake Total 1500 650 Output Total 2550 1200 Balance -1050 -550 Physical Exam - Physical Exam General Appearance: alert, thin Neck: normal inspection Respiratory: No rales, No rhonchi, No wheezing Cardiac/Chest: regular rate, rhythm, systolic murmur, No edema Abdomen: normal bowel sounds, soft Extremities: No pedal edema Neuro/Psych: alert, normal mood/affect, oriented x 3 ICD10 Worksheet Patient Problems: Problems Problem Status Onset ESRD needing dialysis Acute Hypertensive emergency Acute Acute pancreatitis Acute Colitis Acute ESRD (end stage renal disease) Acute Hypertension Acute Hypertensive encephalopathy Acute Hypertensive urgency Acute Renal failure Acute
[2018-04-24] MEDS: CALCIUM ACETATE 667 MG CAP PO SCH ×4 (09:39→12:35)
[2018-04-24] MEDS: LOSARTAN POTASSIUM 50 MG TAB PO SCH ×2 (09:39→12:34)
[2018-04-24] MEDS: ATENOLOL 50 MG TAB PO SCH ×2 (09:40→12:33)
[2018-04-24 12:21] VITALS: BP 159/97
--- NOTE | 2018-04-24 14:14 | GDS ---
DISCHARGE DIAGNOSES: 1. End-stage renal disease, on dialysis at [facility] Friday/Friday/Friday. 2. Resistant hypertensive urgency. 3. Anemia of chronic kidney disease. 4. Metabolic bone disease of chronic kidney disease. 5. Homelessness. 6. Hepatitis C. CONSULTATIONS: Nephrology. HISTORY OF PRESENT ILLNESS: A 27-year-old male with end-stage renal disease, on chong lysis, and resistant hypertension, presented to the ER with headache and elevated blood pressure. He was admitted to [facility] less than a month ago with a hypertensive emergency, discharged with a clonidine patch, atenolol, losartan and amlodipine. He has not been able to adhere to this regimen. His neph rologist attempted to simplify his regimen and was started on labetalol 600 mg twice a day. Did not tolerate labetalol as it caused an upset stomach. Denies chest pain, shortness of breath, vision baldo nges, or facial droop. HOSPITAL COURSE BY PROBLEM: 1. Severe hypertension/hypertensive urgency: Very difficult to treat. His situation is difficult g iven his homelessness and has not been compliant with his medications. We trialed different regimens here and have had improvement with hydralazine, losartan, clonidine patch, Norvasc and atenolol. Ad vised him to set an alarm to ensure he takes his twice-a-day medication. He was counseled on the ris k of stroke and UT if not compliant with his medications. 2. End stage renal disease. Last done here today. He will follow up with [facility] in [place]. 3. Anemia of chronic disease. H and H are stable. No need for transfusion. 4. Thrombocytopenia. No active bleeding. 5. Metabolic bone disease. Started on PhosLo. 6. Small pericardial effusion. No evidence of tamponade. 7. Homelessness. Case Management helped to assist with prison options and travel to HD, but he dec lined. 8. Hepatitis C. Will refer him to Infectious Disease for treatment. DIET: Renal. DISPOSITION: Patient is stable for discharge from the hospital. NEW MEDICATIONS: See medication reconciliation. FOLLOWUP: 1. [facility]. 2. Infectious Disease here at [facility]. PHYSICAL EXAMINATION: VITAL SIGNS: Today, temperature 36.8, blood pressure 159/97, heart rates in t he 90s, respirations 16, 99 on room air. GENERAL: He is well appearing, no acute distress. HEENT: PERRLA. Moist mucous membranes. CV: Regular rate and rhythm. No lower extremity edema. LUNGS: C lear. ABDOMEN: Soft, nontender, nondistended. Positive bowel sounds. : No Barrett. MUSCULOSKELET AL: 5/5 upper and lower extremity strength. NEURO: 2 through 12 intact. PSYCH: Alert and oriente d x3. Time spent on discharge: Greater than 30 minutes at bedside, counseling patient on medication adhere [facility]. /[id number]/MODL
--- NOTE | 2018-04-24 15:19 | ASMTCMCOM ---
CM Note CM Note Notes: Met with pt, his prescriptions have been sent down to our [facility] pharmacy except for Calcium acetate, which he will waste picker at the [facility] on [address]. The pt has no copays. Pt is not allowed back at the [facility] and stays at the [facility], pt has been given resources on medicaid transportation. DC Plan: Independent Date Signed: 04/24/2018 03:14 PM Electronically Signed By:Elizabeth Goodrich RN
== END 2018-04-24 15:25 | disposition home or self-care (01) | DRG 470 ==
LOC: EDUNIT# → F2N 10:47 → F3E 04-23 17:38
PROVIDERS: ADMIT Hospitalist; ATTEND Internal Medicine
PROC: 5A1D70Z Performance of Urinary Filtration, Intermittent, Less than 6 Hours Per Day (ICD-10-PCS; principal; 2018-04-20)
DX: I12.0 Hypertensive chronic kidney disease with stage 5 chronic kidney disease or end stage renal disease (principal); D69.6 Thrombocytopenia, unspecified; I31.3 Pericardial effusion (noninflammatory); N18.6 End stage renal disease; I16.0 Hypertensive urgency; D63.1 Anemia in chronic kidney disease; M89.8X0 Other specified disorders of bone, multiple sites; B19.20 Unspecified viral hepatitis C without hepatic coma; Z99.2 Dependence on renal dialysis; Z59.0 Homelessness; Z91.19 Patient's noncompliance with other medical treatment and regimen
CPT/HCPCS: 80307; 83835-90; 96365; 96366; G0472; G0480; J0360